=== PATIENT | male | born 1990 | race Two or more races ===

== ENCOUNTER 2024-12-24 11:32 | Emergency (ER) | payer MEDICAID, SELFPAY ==
[2024-12-24 11:34] VITALS: BP 167/95; PULSE 112; RESP 18; TEMP 36.9; O2SAT 98; BMI 33.7
--- NOTE | 2024-12-24 11:35 | ED_ITS ---
[facility] - General Adult General Chief complaint: Abdominal Pain Stated complaint: abd/back pain Time Seen by Provider: 12/24/24 12:31 Source: patient Mode of arrival: ambulatory Limitations: no limitations History of Present Illness ED Provider: HPI narrative: 34-year-old male who is presenting with right lower back discomfort radiating around to his belly button, he was seeing at [facility] on December 14, at that point had blood work, urinalysis and a CAT scan abdomen and pelvis, prior to that he was seen there as well and started on gabapentin because he has similar symptoms in his bilateral lower extremities lots of burning, takes gabapentin 600 mg 3 times a day Related Data Previous Rx's ?Medication ?Instructions ?Recorded capsaicin 0.035 % topical patch 1 patch topical QID NJ N pain 7 12/24/24 days #10 ea oxycodone 5 mg tablet 5 mg PO Q6H PRN pain #10 tab s 12/24/24 prednisone 20 mg tablet 40 mg (2 x 20 mg) PO DAILY 4 days 12/24/24 #8 tabs Allergies Allergy/AdvReac Type Severity Reaction Status Date / Time No Known Allergies Allergy Verified 12/24/24 11:36 Review of Systems 2 Constitutional: Constitutional: Reports as per [facility] Social History Social History Smoked in Last 30 Days: Yes Substance Use Type: Marijuana Substance Use Frequency: Chronic Longstanding Advance Directives: No Advance Directives Information Provided: Yes Do you have a plan to hurt others: No Plan Physical Exam ED Vital Signs: Vital Signs - 24 hr 12/24/24 11:34 Temperature 98.4 F Pulse Rate 112 H Respiratory Rate 18 Blood Pressure 167/95 H Pulse Oximetry 98 Oxygen Delivery Method Room Air BMI result Body Mass Index 33.7 Const Other: * Gen: ?Overall well-appearing patient * CV: RRR, no obvious murmurs appreciated * Resp: ?No wheezing rales rhonchi no stridor moving air well * Abd: ?Bowel sounds are present, significant tenderness all around L4-L5 distribution to even superficial touch up into the abdominal area * MSK: FROM, strength 5/5 all extremities, tingling and burning bilateral lower extremities * Skin: Warm, dry, intact, no rashes * Neuro: ?Alert and oriented x3, moving upper and lower extremities symmetrically, no obvious facial asymmetry noted Course Course Course Narrative: This is a Rapid Medical Examination (RME) performed by Nav Foster PA-C in triage. Full HPI, ROS, assessment and treatment plan per primary provider in the Main ED. Hx: 34 yo M here w/ 12/31 right lower quadrant abd pain rad to back x2 mo. reports vomiting 5x today. presented to PCP office today, advised to come to ED. denies urinary sx, diarrhea, constipation. no hx of abd surgeries. Plan: labs, UA Medications Administered Discontinued Medications Generic Name Dose Route Start Last Admin Trade Name Víctor PRN Reason Stop Dose Admin Dexamethasone 10 mg 12/24/24 12:55 12/24/24 13:08 Dexamethasone 2 Mg Tablet PO 12/24/24 12:56 10 mg ONCE ONE Administration Ketorolac Tromethamine 15 mg 12/24/24 12:55 12/24/24 13:07 Ketorolac Tromethamine 15 Mg/Ml Vial IM 12/24/24 12:56 15 mg ONCE ONE Administration Lidocaine 1 patch 12/24/24 12:55 12/24/24 13:07 Lidocaine 4 % Patch Adh..Patch TRANSDERMA 12/24/24 12:56 1 patch ONCE ONE Administration Protocol Oxycodone HCl 5 mg 12/24/24 12:55 12/24/24 13:07 Oxycodone Hcl Immed Release 5 Mg Tablet PO 12/24/24 12:56 5 mg ONCE ONE Administration Procedures Procedure Narrative Procedure Narrative: Verbal consent for trigger point injections was obtained Patient was placed on the left lateral decubitus position, 5 trigger points were identified along the lumbosacral paraspinal spine injected with 21 gauge needle a total of 10 cc 1% lidocaine without epinephrine Patient tolerated procedure well Medical Decision Making Medical Decision Making [facility] Narrative: Patient is presenting with 2 months' worth of pain in the lower extremities and burning in the L4-L5 nerve distribution something what you would expect with shingles but he has no obvious rashes, I reviewed his CT imaging from [facility] and that was completely unremarkable, blood work today reassuring, he is tachycardic slightly but he is in discomfort afebrile, he has had no urinary symptoms no hematuria to suspect renal colic, the spoke with the patient do not feel that repeat imaging such as CT is indicated, I am going to inject his back with lidocaine, lidocaine patches, local modalities, we will place him on steroids just for a few days and we will ask the patient to monitor his diabetes, he states prior to that his diabetic control has been poor now he is really tight on his diabetic control and I agree with that, and he has not neuropathy and he is already taking medical therapy, he went to see his PCP and PCP just sent him to the ER, patient needs outpatient MRI, patient needs referral to pain management he may need possibly epidural steroid injections or other interventional approaches, he may need physical therapy, and I will communicate that to PCP on my discharge instructions 14:22 on re-evaluation after injections, Toradol lidocaine, patient has had significant improvement in his pain symptoms he rates it 2/10 see my discharge instructions Differential Diagnosis Differential Diagnoses: The differential diagnosis associated with the presentation includes (Lumbar neuropathy, shingles, renal colic, diskitis osteomyelitis, cauda equina, appendicitis) Lab Data MDM Lab Attestation statement: I reviewed the patient's lab results. 12/24/24 12:15 12/24/24 12:15 Labs: Lab Results 12/24/24 Range/Units 12:15 WBC 8.3 (4.8-10.8) X10*3/uL RBC 5.06 (4.60-5.80) X10*6/uL Hgb 15.3 (14.0-18.0) g/dl Hct 42.0 (42.0-52.0) % MCV 83.0 (80.0-98.0) fL MCH 30.2 (27.0-33.0) pg MCHC 36.4 H (31.0-36.0) g/dl RDW 12.5 (11.0-16.0) % Plt Count 259 (160-400) X10*3/uL MPV 9.2 L (9.4-12.4) fL Immature Gran % (Auto) 0.4 (0.0-0.4) % Neut % (Auto) 67.0 (45-73) % Lymph % (Auto) 24.3 (20-40) % [place] % (Auto) 7.6 (2-11) % Eos % (Auto) 0.5 (0-4) % Baso % (Auto) 0.2 (0-2) % Lymph # (Auto) 2.0 (1.2-4.9) X10*3/uL [place] # (Auto) 0.6 (0.1-1.2) X10*3/uL Eos # (Auto) 0.0 (0.0-0.4) X10*3/uL Baso # (Auto) 0.0 (0.0-0.2) X10*3/uL Abs Immat Gran (auto) 0.03 (0.00-0.03) X10*3/uL Absolute Neuts (auto) 5.6 (2.0-8.3) x10*3/uL Absolute Nucleated RBC 0.000 (0.0-0.012) X10*3/uL Nucleated RBC % (auto) 0.0 (0.0-0.2) /100WBC Sodium 138 (135-145) mmol/L Potassium 5.1 (3.3-5.1) mmol/L Chloride 103 (96-108) mmol/L Carbon Dioxide 27 (22-29) mmol/L Anion Gap 13 (12-20) BUN 16 (9-16) mg/dL Creatinine 0.95 (0.5-1.4) mg/dL Estim Creat Clear Calc 118.0 Estimated GFR > 60 Random Glucose 105 (60-115) mg/dL Calcium 9.9 (8.4-10.2) mg/dL Magnesium 1.8 (1.6-2.6) mg/dL Total Bilirubin 0.9 (0.0-1.0) mg/dL AST 24 (5-37) U/L ALT 16 (0-40) U/L Alkaline Phosphatase 68 (39-117) U/L Total Protein 7.8 (6.5-8.0) g/dL Albumin 4.9 (3.5-5.0) g/dL Lipase 10 (8-78) U/L External Record Review External record reviewed: Prior outpatient radiology and Outside ED record Tests considered The following testing was considered but not selected: CT abdomen and pelvis Prescription Management I considered prescription management with: Pain Medication Chronic Conditions Patient?s care impacted by: Diabetes Discharge Plan Discharge Clinical Impression: Neuropathy, lumbosacral (radicular), Diabetic neuropathy Patient Disposition: Home, Self-Care Additional Instructions: Continue with gabapentin, continue with steroids starting tomorrow keep a close eye on your sugars as prednisone can increase your glucose Capsaicin ointment patches as described, 10s unit to the back, follow up with the PCP, you have neuropathy is there was no indication for repeat CAT scan, blood work reassuring, I recommend outpatient MRI of the lumbosacral spine, this is nonemergent basis, and referral to pain management, you may need additional physical therapy or pain procedures Lidocaine injections performed in the ER, at the site of injections if you have any redness discharge of pus very much unlikely come back to the ER for evaluation Prescriptions: New prednisone 20 mg tablet 40 mg PO DAILY 4 Days Qty: 8 0RF capsaicin 0.035 % adhesive patch,medicated 1 patch topical QID PRN (Reason: pain) 7 Days Qty: 10 0RF oxycodone 5 mg tablet 5 mg PO Q6H PRN (Reason: pain) Qty: 10 0RF Rx Instructions: Partial Fill upon patient request. Print Language: Honduran
[2024-12-24 12:20] LABS: MANUAL DIFF FLAG NO
[2024-12-24 12:27] LABS: Hematocrit 42.0 % (42.0-52.0); Hemoglobin 15.3 g/dl (14.0-18.0); Imm Gran Abs Auto 0.03 X10*3/uL (0.00-0.03); Imm Gran Pct Auto 0.4 % (0.0-0.4); Lymphocytes Absolute Auto 2.0 X10*3/uL (1.2-4.9); Mean Corpuscular HGB Conc 36.4 g/dl (31.0-36.0); Mean Corpuscular Hemoglobin 30.2 pg (27.0-33.0); Mean Corpuscular Volume 83.0 fL (80.0-98.0); NRBC Abs Auto 0.000 X10*3/uL (0.0-0.012); NRBC Pct Auto 0.0 /100WBC (0.0-0.2); Platelet Count 259 X10*3/uL (160-400); Red Blood Count 5.06 X10*6/uL (4.60-5.80); White Blood Count 8.3 X10*3/uL (4.8-10.8)
[2024-12-24 12:35] LABS: Alanine Aminotransferase 16 U/L (0-40); Albumin Level 4.9 g/dL (3.5-5.0); Alkaline Phosphatase 68 U/L (39-117); Anion Gap 13 (12-20); Aspartate Amino Transferase 24 U/L (5-37); Blood Urea Nitrogen 16 mg/dL (9-16); Calcium 9.9 mg/dL (8.4-10.2); Carbon Dioxide 27 mmol/L (22-29); Chloride 103 mmol/L (96-108); Creatinine Clr Calc Pharmacy 118.0; Estimated Glomerular Filt Rate > 60; Lipase 10 U/L (8-78); Magnesium 1.8 mg/dL (1.6-2.6); Potassium 5.1 mmol/L (3.3-5.1); Sodium 138 mmol/L (135-145); Total Protein 7.8 g/dL (6.5-8.0)
[2024-12-24] MEDS: Lidocaine 4 % Patch ADH..PATCH 1 PATCH TRANSDERMA (13:07)
[2024-12-24] MEDS: oxyCODONE HCl Immed Release 5 MG TABLET PO (13:07)
--- NOTE | 2024-12-24 14:18 | PC.NURSE ---
1% lidocaine injected by dr chappell
[2024-12-24 14:34] VITALS: BP 167/95; PULSE 112; RESP 18; TEMP 36.9; O2SAT 98
--- OUTSIDE RECORDS SUMMARY | 2024-12-24 15:02 | XMS_ITS | Clinical Summary ---
Author Organization [facility] Address [address] [place] [address] Care Team Providers Care Refrigeration Unit Repairer Name Role Phone Unavailable Primary Care Provider Unavailabl e Surgical History Surgery Date Site/Laterality Comments OTHER SURGICAL HISTORY PROCEDURE: DENIES PREVIOUS SURGERY Medical History Medical History Date Comments Essential hypertension, benign D X:Essential hypertension, benign Type 2 diabetes mellitus wit h microalbuminuria, with long-term current use of insulin ([facility] V24, [facility] V28) 09/01/2017 DX:Type 2 diabetes mellitus with microalbuminuria, with long-term current use of insulin (HCC) DM (diabetes mellitus), type 2 with renal complications ([facility] V24, [facility] V28) 09/01/2017 DX:DM (diabetes mellitus), t ype 2 with renal complications (HCC) DM (diabetes mellitus), type 2 with neurological complications ([facility] V24, [facility] V28) 04/26/2020 DX:DM (diabetes mellitus), t ype 2 with neurological complications ([facility]) Microalbuminuria 04/26/2020 DX:Microalbumin uria Severe obesity (BMI 35.0-39. 9) with comorbidity ([facility] V24, [facility] V28) 04/26/2020 DX:Severe obesi ty (BMI 35.0- 39.9) with comorbidity ([facility]) Family History Medical History Relation Name Comments Diabetes Brother Hypertension Father Diabetes Maternal Grandfather Relation Name Status Comments Brother Father Maternal Grandfather Social History Tobacco Use Types Packs/Day Years Used Date Smoking Tobacco: Heavy Smoker Smokeless Tobacco: Never Alcohol Use Standard Drinks/Week Comments Yes 0 (1 standard drink = 0.6 oz pur e alcohol) Sex and Gender Information Value Date Recorded Sex Assigned at Not on file Legal Sex Male 11:12 AM EST Gender Identity Not on file Sexual Orientation Not on file Obstetrics History Plan of Treatment Health Maintenance Due Date Last Done Comments Hepatitis B Vaccines (1 of 3 - 19+ 3-dose series) 2009 DTaP,Tdap,and Td Vaccines (3 - Td or Tdap) 10/24/2019 10/23/2009, 03/21/2004 COVID-19 Vaccine ( - 2023-2 5 season) 2023 Depression Screening 04/23/2024 Influenza Vaccine (#1) 2024 Pneumococcal Vaccine: Pediatrics (0 to 5 Years) and At-Risk Patients (6 to 49 Years) Aged Out 11/19/2009 No longer eligible b ased on patient's age to complete this topic HIB Vaccines Aged Out No longer eligi ble based on patient's age to complete this topic HPV Vaccines Aged Out No longer eligi ble based on patient's age to complete this topic Hepatitis A Vaccines Aged Out No long er eligible based on patient's age to complete this topic IPV Vaccines Aged Out No longer eligi ble based on patient's age to complete this topic MMR Vaccines Aged Out No longer eligi ble based on patient's age to complete this topic Meningococcal ACWY Vaccine Aged Out N o longer eligible based on patient's age to complete this topic Meningococcal B Vaccine Aged Out No l onger eligible based on patient's age to complete this topic RSV Immunization Patients Under 20 months Aged Out No longer eligible b ased on patient's age to complete this topic Varicella Vaccines Aged Out No longer eligible based on patient's age to complete this topic
--- OUTSIDE RECORDS SUMMARY | 2024-12-24 15:02 | XMS_ITS | Clinical Summary ---
Author Organization [facility] Address [address] [facility] [address] [place] [address] Care Team Providers Care Picker/Puller Name Role Phone Unavailable Primary Care Provider Unavailabl e Social History Tobacco Use Types Packs/Day Years Used Date Smoking Tobacco: Never Assessed Sex and Gender Information Value Date Recorded Sex Assigned at Not on file Legal Sex Male 10:22 AM EDT Gender Identity Not on file Sexual Orientation Not on file Plan of Treatment Health Maintenance Due Date Last Done Comments Depression Screening 1990 HIV Screening 1990 SDOH Screening 1990 Disability Screening 1990 Alcohol/Substance Use Screening 2002 Tobacco Screening 2002 Family Planning (PISQ) 2005 HPV Vaccines (1 - Male 3-dos e series) 2005 Hepatitis C Screening 2008 DTaP/Tdap/Td Vaccines (1 - Tdap) 2009 Hepatitis B Vaccines (1 of 3 - 19+ 3-dose series) 2009 COVID-19 Vaccine (1 - 2023-2 5 season) 2024 Influenza Vaccine (#1) 2024 Zoster Vaccines (1 of 2) 2040 RSV Patients and Pa tients Aged 60 years or older (1 - 1-dose 75+ series) 2065 HIB Vaccines Aged Out No longer eligi [...] patient's age to complete this topic Meningococcal Vaccine Aged Out No mary shayla eligible based on patient's age to complete this topic Pneumococcal Vaccine: Pediat rics (0 to 5 Years) and At-Risk Patients (6 to 49) Years Aged Out No longer eligible b ased on patient's age to complete this topic RSV under 20 months Aged Out No longe r eligible based on patient's age to complete this topic Rotavirus Vaccines Aged Out No longer eligible based on patient's age to complete this topic [place] [address] [address]
== END 2024-12-24 14:37 | disposition home or self-care (01) ==
PROVIDERS: Physician Assistant Medical; Emergency Provider Emergency Medicine
DX: G62.9 Polyneuropathy, unspecified (principal); E11.40 Type 2 diabetes mellitus with diabetic neuropathy, unspecified; R00.0 Tachycardia, unspecified; R10.31 Right lower quadrant pain; R11.10 Vomiting, unspecified; Z79.899 Other long term (current) drug therapy
CPT/HCPCS: 20552; 36415; 80053; 83690; 83735; 85025; 96372; 99284; J1885; J8540

== ENCOUNTER 2025-01-01 06:38 | Emergency (ER) | payer OTHER, SELFPAY ==
--- NOTE | ~2025-01-01 | XR_ITS ---
EXAMINATION: XR THORACIC SPINE 2 VIEWS HISTORY: lifting heavy furniture with thoracic pain COMPARISON: There are no prior studies available for comparison. FINDINGS: AP and lateral views of the thoracic spine are submitted. Osseous mineralization is normal. The vertebral bodies maintain normal height and alignment without evidence of fracture or subluxation. The intervertebral disc spaces are preserved. The visualized paraspinal soft tissues are unremarkable. XR/XR thoracic spine 2V IMPRESSION: Unremarkable examination of the thoracic spine. Electronically signed by: Raza Cordero MD 01/01/2025 08:17 AM EDT
[2025-01-01 06:40] VITALS: BP 118/58; PULSE 96; RESP 16; TEMP 36.3; O2SAT 98; BMI 33.7
--- OUTSIDE RECORDS SUMMARY | 2025-01-01 06:52 | XMS_ITS | Clinical Summary ---
Author Organization [facility] [address] [place] [address] [place] [address] Phone Care Team Providers Care Correction Officer Head Name Role Phone Dago Franklin MD Primary Care Provider Encounters Date Type Department Care Team Description 12/26/2024 Telephone Adult Medicine [facility] [address] [place] [address] Dago Franklin MD from Last 3 Months Surgical History Surgery Date Site/Laterality Comments OTHER SURGICAL HISTORY PROCEDURE: DENIES PREVIOUS SURGERY Medical History Medical History Date Comments Essential hypertension, benign D X:Essential hypertension, benign Type 2 diabetes mellitus wit h microalbuminuria, with long-term current use of insulin ([facility] V24, [facility] V28) 09/01/2017 DX:Type 2 diabetes mellitus with microalbuminuria, with long-term current use of insulin (HCC) DM (diabetes mellitus), type 2 with renal complications ([facility] V24, [facility] V28) 09/01/2017 DX:DM (diabetes mellitus), t ype 2 with renal complications (HCC) DM (diabetes mellitus), type 2 with neurological complications ([facility] V24, [facility] V28) 04/26/2020 DX:DM (diabetes mellitus), t ype 2 with neurological complications (HCC) Microalbuminuria 04/26/2020 DX:Microalbumin uria Severe obesity (BMI 35.0-39. 9) with comorbidity ([facility] V24, [facility] V28) 04/26/2020 DX:Severe obesi ty (BMI 35.0- 39.9) with comorbidity (HCC) Family History Medical History Relation Name Comments [...] on file Obstetrics History Plan of Treatment Upcoming Encounters Date Type Department Care Team (Late st Contact Info) Description 01/01/2025 1:30 PM EDT Office Visit Adult Medicine [address] [phone] Thao Nicholson PA [address] [place] [address] 08/18/2025 11:30 AM EDT Office Visit Adult Medicine [address] [phone] Dago Franklin MD [address] [place] [address] Health Maintenance Due Date Last Done Comments Diabetes: Annual GFR (Glomerular Filtration Rate) 1990 Diabetes: Annual Foot Exam 2000 Diabetes: Annual Retina Eye Exam 2000 Hepatitis B Vaccines (1 of 3 - 19+ 3-dose series) 2009 Pneumococcal Vaccine: Pediatrics (0 to 5 Years) and At-Risk Patients (6 to 49 Years) (2 of 2 - PCV) 11/19/2010 11/19/2009 DTaP,Tdap,and Td Vaccines (3 - Td or Tdap) 10/24/2019 10/23/2009, 03/21/2004 Depression Screening 04/23/2024 COVID-19 Vaccine (1 - 2023-2 5 season) 2024 Influenza Vaccine (#1) 2024 Cholesterol Screening (Lipid Panel) 12/26/2024 Diabetes: Annual Urine Albumin-Creatinine Ratio (uACR) 12/26/2024 Diabetes: Blood Sugar Contro l Test (HGBA1C) 12/26/2024 HIV Screening 12/26/2024 Hepatitis C Screening 12/26/2024 Hypertension/CHF/CAD Annual BMP Blood Test 12/26/2024 Social Influencers of Health Screening 12/26/2024 HIB Vaccines Aged Out No longer eligi [...] patient's age to complete this topic [place] [address] [place] [address] PLAN Care Teams Correction Officer Head Relationship Specialty Start Date End Date Dago Franklin MD [address] [place] [address] PCP - General Internal Medicine 12/26/24
--- OUTSIDE RECORDS SUMMARY | 2025-01-01 06:52 | XMS_ITS | Clinical Summary ---
Author Organization [facility] Address [address] [facility] 7 [place] [address] Care Team Providers Care Correctional Substance Abuse Counselor Name Role Phone Unavailable Primary Care Provider [...] patient's age to complete this topic [place] [address] [place] [address]
--- NOTE | 2025-01-01 07:10 | ED.BACK ---
HPI - Back Pain/Injury General Chief Complaint: Back Pain/Injury Stated Complaint: severe back pain Time Seen by Provider: 01/01/25 07:05 Source: patient and family ( at bedside) Mode of arrival: ambulatory Limitations: no limitations History of Present Illness ED Provider: MARGARITO Nguyen HPI Narrative: 34-year-old male with medical history of HTN, IDT2DM, BPH, lumbar back pain presents to the ED due to thoracic back pain that started yesterday after moving catch his. Patient states he was rearranging furniture and pushing couches when he felt an instant pain in his mid back that got progressively worse as the day went on. Patient reports the pain is localized to the mid spine and does not radiate anywhere. He was unable to sleep last night due to pain and has been taking 5mg oxycodone and lidocaine patches without effect on pain. Denies chest pain, SOB, abdominal pain, nausea, vomiting. Related Data Previous Rx's ?Medication ?Instructions ?Recorded capsaicin 0.035 % topical patch 1 patch topical QID PRN pain 7 12/24/24 days #10 ea oxycodone 5 mg tablet 5 mg PO Q6H PRN pain #10 tabs 12/24/24 prednisone 20 mg tablet 40 mg (2 x 20 mg) PO DAILY 4 days 12/24/24 #8 tabs cyclobenzaprine 5 mg tablet 5 mg PO TID PRN muscle spasm #15 01/01/25 tabs ketorolac 10 mg tablet 10 mg PO Q8H PRN pain #15 tabs 01/01/25 Allergies Allergy/AdvReac Type Severity Reaction Status Date / Time No Known Allergies Allergy Verified 01/01/25 06:41 Review of Systems Review of Systems: CONST: Negative for fever, body aches and chills. HENT: Negative for neck pain/stiffness, headache, congestion, sore throat, swelling. EYES: Negative for discharge/pain or vision changes. RESP: Negative for cough/hemoptysis and shortness of breath. CV: Negative chest pain, difficulty breathing, palpitations. ABD: Negative pain, nausea, vomiting. : Negative increase frequency, dysuria, blood in urine or stool. MUSC: Negative for muscle aches, edema. POS mid back pain SKIN: Negative rash, lesions/sores. NEURO: Negative headache, dizziness, weakness. Yes all other systems are reviewed and are negative [facility] Past Medical History Attestation statement: The following information was validated with the patient. Source: old records reviewed and nursing notes reviewed Social History Social History Substance Use Type: Marijuana Advance Directives: No Advance Directives Information Provided: Yes Physical Exam Vital Signs: Vital Signs: Last Vital Signs Temp 97.4 F 01/01/25 06:40 Pulse 96 01/01/25 06:40 Resp 16 01/01/25 06:40 BP 118/58 L 01/01/25 06:40 Pulse Ox 98 01/01/25 06:40 O2 Del Method Room Air 01/01/25 06:40 BMI result Body Mass Index 33.7 GENERAL APPEARANCE: ?AxOx4, no acute distress. HEENT: ?NC, AT. MMM. EOMI, clear conjunctiva, oropharynx clear. NECK: ?Supple without lymphadenopathy.? No stiffness or restricted ROM. HEART:? Normal rate and regular rhythm, normal S1/S2, no m/r/g LUNGS:? CTAB, moving air well. No crackles or wheezes are heard. ABDOMEN: ?Soft, nontender, nondistended with good bowel sounds heard. BACK: No CVAT, no obvious deformity. TTP of thoracic spine most significant between T7-T10 of the midline spine and into the R side thoracic paraspinal muscles, no bony step offs palpated, no overlying skin changes EXTREMITIES: ?Without cyanosis, clubbing or edema. NEUROLOGICAL: ?Grossly nonfocal. Alert and oriented, moving all 4 extremities. Skin: ?Warm and dry without any rash. Medications Administered Discontinued Medications Generic Name Dose Route Start Last Admin Trade Name Freq PRN Reason Stop Dose Admin Acetaminophen 975 mg 01/01/25 07:56 01/01/25 08:17 Acetaminophen 325 Mg Tablet PO 01/01/25 07:57 975 mg ONCE ONE Administration Ketorolac Tromethamine 30 mg 01/01/25 07:56 01/01/25 08:17 Ketorolac Tromethamine 30 Mg/Ml Vial IM 01/01/25 07:57 30 mg ONCE ONE Administration Medical Decision Making Medical Decision Making MDM Narrative: 34-year-old male with medical history of HTN, IDT2DM, BPH with thoracic midline spinal pain and tenderness after pushing large, heavy couches yesterday. Patient reports feeling instant pain in his mid thoracic back that has been progressivly worsening since the injury happened. Patient has been taking 5mg oxycodone and using lidocaine patches without effect. VS on initial observation-BP 118/58, pulse rate of 96, respiratory rate of 16, afebrile with oral temp of 97.4?, O2 saturation 98% on room air. Physical exam shows midline thoracic tenderness that extends into R thoracic paraspinal muscles, no radiculopathy, no bony step offs palpated. ROM is intact but has significant pain with extension, lateral bending intact, able to ambulate with slow and steady gait, SILT. Plan: XR thoracic spine, medicate with 975 po Tylenol, 30mg IM ketorolac Course 9:30- XR thoracic spine negative for fracture or dislocation. Patients pain has improved significantly with IM toradol and tylenol. Patient has appointment with PCP today I counceled him to discuss his history of back pain for PT referral and further management of back pain. Risk factors reviewed: no saddle anesthesia, bowel/bladder incontinence, no history of IVDU, afebrile, Full ROM of thoracic spine intact Patient feels comfortable to go home for self care. I will prescribe 5 day course of flexeril and toradol for patient to manage his pain at home. I counciled him on strict return precautions, he is in agreement with the plan. Differential Diagnosis Differential Diagnoses: The differential diagnosis associated with the presentation includes Thoracic spine fracture Thoracic spine disc herniation Thoracic muscle strain Admission/Observation Consideration of admission/observation: Escalation of care including admission/observation considered Independent Interpretation I performed an independent interpretation of an: Plain X-Ray Interpretation: I personally interpreted the x-ray of thoracic spine which was negative for fracture or dislocation, I agree with the radiologist's interpretation Radiology Impression Discussion of test interpretation with radiology: I have reviewed the radiologist's reading. Radiologist Impression: XR thoracic spine FINDINGS: AP and lateral views of the thoracic spine are submitted. Osseous mineralization is normal. The vertebral bodies maintain normal height and alignment without evidence of fracture or subluxation. The intervertebral disc spaces are preserved. The visualized paraspinal soft tissues are unremarkable. XR/XR thoracic spine 2V IMPRESSION: Unremarkable examination of the thoracic spine. Electronically signed by: Raza Cordero MD 01/01/2025 08:17 AM EDT RP Dictated By: Raza Cordero MD Signed By: <Electronically signed by Raza Cordero MD in OV> 01/01/25 0817 Independent Historian Clinical information obtained from an independent historian. History obtained from or confirmed by: Spouse ( at bedside corroborating history) External Record Review External record reviewed: Inpatient record, Office record and Outpatient record Chronic Conditions Patient?s care impacted by: Diabetes, Hypertension and Other (BPH) Social Determinants Patient?s care significantly limited by Social Determinants of Health including: Other Social Determinant of Health Discharge Plan Discharge Clinical Impression: Strain of thoracic spine Patient Disposition: Home, Self-Care Instructions: Muscle Strain (ED), Thoracic Back Strain (ED) Additional Instructions: You were evaluated in the ED today for mid back strain after manipulating heavy furniture yesterday. Your x-ray was negative for fracture, dislocation. Your physical exam was reassuring that you had full range of motion of your back although you do have pain when moving. You were medicated in the department today with 30 mg of an intramuscular injection of Toradol which is a strong NSAID for inflammation, in 975 mg of Tylenol with good effect of your pain. You will be prescribed a 5 day course of Flexeril which is a muscle relaxer, and a 5 day course of Toradol which is a strong NSAID to manage your pain. Additionally you should take 500 mg of Tylenol every 6 hours. You can apply heat or lidocaine patches to the affected areas. Please do not use heat or ice over lidocaine patches as this can burn the skin. I do recommend that you follow up with your primary care doctor as you do have a history of back pain and I feel it would be beneficial for you to participate in physical therapy to strengthen your core and back muscles to prevent any further injury or back pain. Please return to the emergency department if you experience worsening back pain, numbness and tingling of your upper or lower extremities, difficulty ambulating, or any new/concerning/worsening symptoms. Prescriptions: New cyclobenzaprine 5 mg tablet 5 mg PO TID PRN (Reason: muscle spasm) Qty: 15 0RF ketorolac 10 mg tablet 10 mg PO Q8H PRN (Reason: pain) Qty: 15 0RF Rx Instructions: patient was given 30mg IM toradol in the ED for inflammation and pain of mid back No Action prednisone 20 mg tablet 40 mg PO DAILY 4 Days Qty: 8 0RF capsaicin 0.035 % adhesive patch,medicated 1 patch topical QID PRN (Reason: pain) 7 Days Qty: 10 0RF oxycodone 5 mg tablet 5 mg PO Q6H PRN (Reason: pain) Qty: 10 0RF Rx Instructions: Partial Fill upon patient request. Print Language: Kyrgyz
[2025-01-01 09:50] VITALS: BP 137/83; PULSE 81; RESP 16; TEMP 36.6; O2SAT 97
== END 2025-01-01 09:52 | disposition home or self-care (01) ==
PROVIDERS: Emergency Provider Emergency Medicine
DX: S29.012A Strain of muscle and tendon of back wall of thorax, initial encounter (principal); I10 Essential (primary) hypertension; E11.9 Type 2 diabetes mellitus without complications; X50.0XXA Overexertion from strenuous movement or load, initial encounter; Y93.89 Activity, other specified; Y92.89 Other specified places as the place of occurrence of the external cause; Y99.8 Other external cause status; Z79.899 Other long term (current) drug therapy
CPT/HCPCS: 72070; 96372; 99284; J1885

== ENCOUNTER → 2025-01-01 07:49 | Outpatient (BNV) | payer OTHER, SELFPAY | PROVIDERS: Emergency Provider Emergency Medicine; Visit Provider Radiology Diagnostic Radiology | DX: M54.50 Low back pain, unspecified (principal) | CPT/HCPCS: 72070 ==

== ENCOUNTER 2025-01-05 11:35 | Emergency (ER) | payer OTHER, SELFPAY ==
--- OUTSIDE RECORDS SUMMARY | 2025-01-01 13:30 | XMS_ITS | Encounter Summary ---
Author Organization [facility] Address [address] [place] [address] Care Team Providers Care Medical Office Technologist Name Role Phone Dago Franklin MD Primary Care Provider Reason for Referral * Consultation (Routine) - Pending Review Specialty Diagnoses / Procedures Referred By Contac t Referred To Contact Endocrinology Diagnoses DM (diabetes mellitus), type 2 with neurological complications (CMS/HCC V24, CMS/HCC V28) Thao Nicholson PA [address] [place] [address] Phone: tel: fax: Referral ID Status Reason Start Date Expiration Date Visits Requested Visits Authorized [id number] Pending Review Specialty Services Required 01/01/2025 01/01/2026 1 1 * Consultation (Urgent) - Closed Specialty Diagnoses / Procedures Referred By Contac t Referred To Contact Physical Medicine and Rehabilitation Diagnoses Lumbar radiculopathy Thao Nicholson PA [address] [place] [address] Phone: tel: fax: Ge Martel DO [address] [place] [address] Phone: tel:[phone] fax:[phone] Referral ID Status Reason Start Date Expiration Date V isits Requested Visits Authorized [id number] Closed Specialty Services Required 01/01/2025 01/01/2026 1 1 Reason for Visit * Reason Comments Follow-up [facility] f/u Encounter Details Date Type Department Care Team (Late st Contact Info) Description 01/01/2025 1:30 PM EDT Office Visit Adult Medicine [facility] [address], [place] [phone] Thao Nicholson PA [address], [place] Encounter to establish care (Primary Dx); Need for hepatitis C screening test; Encounter for screening for HIV; Lumbar radiculopathy; Acute right-sided low back pain with right-sided sciatica; DM (diabetes mellitus), type 2 with neurological complications (CMS/HCC V24, CMS/HCC V28); Vitamin D deficiency Social History Tobacco Use Types Packs/Day Years Used Date Smoking Tobacco: Former Cigarettes Smokeless Tobacco: Former Comments:Quit 2022 Alcohol Use Standard Drinks/Week Comments Not Currently 0 (1 standard drink = 0.6 oz pur e alcohol) Housing Instability Answer Date Recorde d Are you worried that in the next 2 months you may not have stable housing? No 01/01/2025 Food Access & Nutrition Answer Date Rec orded Do you have access to a vari ety of food including fruits and vegetables? Yes 01/01/2025 Health Literacy Answer Date Recorded How often do you need to hav e someone help you when you read instructions, pamphlets, or other written material from your doctor or pharmacy? Never 01/01/2025 Caregiver: How often do you need to have someone help you when you read instructions, pamphlets, or other written material from your doctor or pharmacy? Not on file 01/01/2025 Financial Risk Answer Date Recorded How hard is it for you to pa y for the very basics like food, housing, medical care, and air conditioning / heating? Not very hard 01/01/2025 Transportation Answer Date Recorded Has the lack of transportati on kept you from meetings, work, or from getting things needed for daily living? No Has the lack of transportati on kept you from medical appointments or from getting medications? No 01/01/2025 Social Isolation Answer Date Recorded How often do you feel lonely or isolated from th ose around you? Never 01/01/2025 Food Risk Answer Date Recorded Within the past 12 months we worried whether our food would run out before we got money to buy more. Never true 01/01/2025 Within the past 12 months th e food we bought just didn't last and we didn't have money to get more. Never true 01/01/2025 Dependent Care Answer Date Recorded Do you need help finding or paying for care for your loved ones. For example, child psychiatrist or elderly care for an older adult? No 01/01/2025 Education Answer Date Recorded Do you think completing more education or training, like finishing a GED, going to college, or learning a trade, would be helpful for you? No 01/01/2025 Employment and Income Answer Date Recor ded During the last four weeks, have you been actively looking for work? No 01/01/2025 Living Situation Answer Date Recorded What is your living situation? 0 01/01/2025 Sex and Gender Information Value Date Recorded Sex Assigned at Not on file Legal Sex Male 11:12 AM EST Gender Identity Not on file Sexual Orientation Not on file Occupation Industry Job Start Date Job End Date unemployed Not on file Not on file Not on file documented as of this encounter Last Filed Vital Signs Vital Sign Reading Time Taken Comments Blood Pressure 91/60 01/01/2025 1:26 PM EDT Pulse 88 01/01/2025 1:26 PM EDT Temperature 35.8 C (96.4 F) 01/01/2025 1:26 PM EDT Respiratory Rate 15 01/01/2025 1:26 PM EDT Oxygen Saturation 98% 01/01/2025 1:26 PM EDT Inhaled Oxygen Concentration - - Weight 93.9 kg (207 lb) 01/01/2025 1:26 PM EDT Height 167.6 cm (5' 6 ) 01/01/2025 1:26 PM EDT Body Mass Index 33.41 01/01/2025 1:26 PM EDT documented in this encounter Progress Notes * Toma Morris MA - 01/01/2025 1:30 PM EDT Depression Screening Will the patient answer the depression risk questions?: Yes Over the last 2 weeks, how often have you been bothered by little interest or pleasure in doing things?: Nearly every day Over the last 2 weeks, how often have you been bothered by feeling down, depressed, or hopeless?: Nearly every day Depression Risk: 6 Social Influencers of Health Who provided answers?: Self Within the past 12 months we worried whether our food would run out before we got money to buy more.: Never true Within the past 12 months the food we bought just didn't last and we didn't have money to get more.: Never true How hard is it for you to pay for the very basics like food, housing, medical care, and air conditioning / heating?: Not very hard Are you worried that in the next 2 months you may not have stable housing?: No Do you have access to a variety of food including fruits and vegetables?: Yes Has the lack of transportation kept you from meetings, work, or from getting things needed for daily living?: No Has the lack of transportation kept you from medical appointments or from getting medications?: No How often do you feel lonely or isolated from those around you?: Never How often do you need to have someone help you when you read instructions, pamphlets, or other written material from your doctor or pharmacy?: Never * ELA Leo - 01/01/2025 1:30 PM EDT CHIEF COMPLAINT: Follow-up ([facility] f/u) IDENTIFIER: Joshua Cohen is a 34 y.o. old male. HPI: Patient is a 34-year-old male who presents to the office today for ER follow-up. He is accompanied by his . He is a new patient here. He presented to [facility] ER on 12/24/2024 complaining of right low back pain which radiates into the umbilicus. He was seen at [facility] on 12/14, labs and CT scan unremarkable. He was given Toradol injection, lidocaine injection which helped at the ER. Labs revealed normal CBC, normal CMP, lipase. Blood sugar was 105. He was discharged with prednisone 40 mg x 4 days, capsaicin patch and oxycodone 5 mg 10 tablets and advised to continue gabapentin. He has been experiencing right sided low back pain with sciatica x 2 months now. Patient reports that he was just at the emergency room this morning and x-ray was completed which was normal. He was prescribed Flexeril. The only thing that helps is oxycodone. Gabapentin is unhelpful. No saddle anesthesia, bladder or bowel incontinence. He rates the pain 10 out of 10 when it comes on. He denies injury. He is currently unemployed. He has hypertension, diabetes with neuropathy, microalbuminuria, vitamin D deficiency, BPH, insomnia. Will have him come back for medication review. Last hemoglobin A1c a couple months ago was 11% however lately his fasting sugars have been around 90-110. No hypoglycemic episodes. ROS: GENERAL: No malaise, significant weight loss or fever HEENT: No changes in vision RESPIRATORY: No cough, wheezing or shortness of breath CARDIOVASCULAR: No chest pain, leg swelling or palpitations GI: No abdominal discomfort, blood in stools or black stools : No dysuria, frequency or incontinence MUSCULOSKELETAL: See HPI NEURO: See HPI PAST MEDICAL HISTORY: Patient Active Problem List Diagnosis Date Noted Essential hypertension, benign 08/10/2021 DM (diabetes mellitus), type 2 with neurological complications ([facility] V24, [facility] V28) 04/26/2020 Microalbuminuria 04/26/2020 Bilateral carpal tunnel syndrome 06/17/2018 DM (diabetes mellitus), type 2 with renal complications ([facility] V24, [facility] V28) 09/01/2017 Past Surgical History: Procedure Laterality Date OTHER SURGICAL HISTORY PROCEDURE: DENIES PREVIOUS SURGERY SOCIAL HISTORY: Social History Tobacco Use Smoking status: Former Types: Cigarettes Smokeless tobacco: Former Tobacco comments: Quit 2022 Substance Use Topics Alcohol use: Not Currently FAMILY HISTORY: Family History Problem Relation Name Age of Onset No Known Problems Mother Hypertension Father Diabetes Brother No Known Problems Brother x3 Autism Daughter Autism Son No Known Problems Maternal Grandmother Diabetes Maternal Grandfather Hypertension Paternal Grandmother No Known Problems Paternal Grandfather MEDICATIONS DISCONTINUED/REORDERED: Medications Discontinued During This Encounter Medication Reason doxycycline (MONODOX) 100 mg capsule Therapy completed escitalopram (LEXAPRO) 5 mg tablet Therapy completed predniSONE (DELTASONE) 20 mg tablet Therapy completed ACTIVE MEDICATIONS: Outpatient Medications Marked as Taking for the 01/01/25 encounter (Office Visit) with ELA Leo Medication Sig Dispense Refill BD Ultra-Fine Milady Pen Needle 32 gauge x 5/32 needle USE ONE NEEDLE TWO TIMES A DAY cholecalciferol (VITAMIN D-3) 50 mcg (2,000 unit) tablet Take 1 tablet (2,000 Units total) by mouth1 (one) time each day. docusate sodium (COLACE) 100 mg capsule Take 1 capsule (100 mg total) by mouth. gabapentin (NEURONTIN) 600 mg tablet Take 1 tablet (600 mg total) by mouth. ibuprofen (ADVIL,MOTRIN) 800 mg tablet Take 1 tablet (800 mg total) by mouth. Lidocaine Pain Relief 4 % patch APPLY ONE PATCH EXTERNAL THREE TIMES A DAY NEEDED FOR PAIN oxyCODONE (ROXICODONE) 5 mg immediate release tablet Take 1 tablet (5 mg total) by mouth every 6 (six) hours if needed. for pain Max Daily Amount: 20 mg tamsulosin (FLOMAX) 0.4 mg 24 hr capsule TAKE ONE CAPSULE BY MOUTH EVERY DAY NEEDED DIFFICULTY URINATING traZODone (DESYREL) 150 mg tablet Take 1 tablet (150 mg total) by mouth. at bedtime [DISCONTINUED] doxycycline (MONODOX) 100 mg capsule TAKE ONE CAPSULE BY MOUTH TWICE DAILY FOR 7 DAYS. STAY OUT OF THE SUN WHILE TAKING THIS MEDICATION IT INCREASES RISK OF SUNBURN [DISCONTINUED] escitalopram (LEXAPRO) 5 mg tablet Take 1 tablet (5 mg total) by mouth daily. [DISCONTINUED] predniSONE (DELTASONE) 20 mg tablet TAKE TWO TABLETS BY MOUTH EVERY DAY FOR 4 DAYS ALLERGIES: No Known Allergies PHYSICAL EXAM: Blood pressure 91/60, pulse 88, temperature 35.8 ??C (96.4 ??F), temperature source Temporal, resp.rate 15, height 1.676 m (66 ), weight 93.9 kg (207 lb), SpO2 98%. Body mass index is 33.41 kg/m??. BMI is greater than 25.0 (above the normal range) - see Plan APPEARANCE: Alert and in no acute distress HEART: RRR with normal S1 and S2, no murmurs, no gallops LUNG: Clear to auscultation ABDOMEN: Bowel sounds normoactive, mild TTP lower abdomen, without rebound, guarding, organomegaly or palpable masses BACK: Good flexion and extension. TTP lumbar spine, bilateral SI joints. SLR negative bilaterally EXTREMITIES: Extremities warm and well perfused without clubbing, cyanosis, or edema. Sensory exam of the foot is normal, tested with the monofilament. 2+ dorsalis pedis pulses, no lesions or ulcers NEURO: Awake, alert and oriented x 3. Patellar reflexes intact LABS: Ordered IMAGING: X-ray was done today at [facility], per patient was normal IMPRESSION/PLAN: 1. Encounter to establish care 2. Need for hepatitis C screening test Hepatitis C antibody 3. Encounter for screening for HIV HIV 1,2 antibody, p24 antigen with reflex to differentiation 4. Lumbar radiculopathy Ambulatory referral to Physical Medicine Rehab 5. Acute right-sided low back pain with right-sided sciatica 6. DM (diabetes mellitus), type 2 with neurological complications (CMS/HCC V24, CMS/HCC V28) Comprehensive metabolic panel Hemoglobin A1c Lipid panel with reflex to direct LDL Microalbumin creatinine urine ratio Ambulatory referral to Endocrinology 7. Vitamin D deficiency Vitamin D 25 hydroxy Medication and lab orders: Orders Placed This Encounter Procedures Comprehensive metabolic panel Hemoglobin A1c Lipid panel with reflex to direct LDL Microalbumin creatinine urine ratio Vitamin D 25 hydroxy HIV 1,2 antibody, p24 antigen with reflex to differentiation Hepatitis C antibody Ambulatory referral to Physical Medicine Rehab Ambulatory referral to Endocrinology Other orders: AMB REFERRAL TO PHYSICAL MEDICINE REHAB AMB REFERRAL TO ENDOCRINOLOGY Encounter to establish care. Updated problem list, surgical history, family history and social history. Lumbar radiculopathy, right-sided low back pain with right-sided sciatica. This has been going on for 2 months now. He had x-ray earlier today at [facility] ER which patient states was normal. He has a prescription for oxycodone as needed for pain, was prescribed Flexeril today. No saddle anesthesia, bladder continence or bowel incontinence. Will refer to physiatry for further evaluation and management. Type 2 diabetes. He does have neuropathy. Will update diabetic labs, follow-up in 4 weeks. Will refer to endocrinology. Sugars at home have been improved. Continue on current diabetic regimen which consists of insulin lispro and insulin Lantus. Diabetic foot exam done today. Continue on current meds. Follow-up for med review. Labs are ordered. Advised the patient to call me if any problems. Patient understands the plan. Patient is in agreement with the plan. Today's documentation was made using voice recognition software.This note may contain grammatical errors secondary to this software. Thao Nicholson PA-C documented in this encounter Plan of Treatment Upcoming Encounters Date Type Department Care Team (Late st Contact Info) Description 02/10/2025 11:15 AM EDT Office Visit Adult Medicine [address] [phone] Thao Nicholson PA [address] [place] [address] 08/18/2025 11:30 AM EDT Office Visit [address] [phone] Dago Franklin MD [address] [place] [address] Scheduled Orders Name Type Priority Associated Diagnoses Orde r Schedule Comprehensive metabolic panel Lab Routine DM (diabetes mellitus), type 2 with neurological complications ([facility]/HCC V24, CMS/HCC V28) 1 Occurrences starting 01/01/2025 until 01/01/2026 Hemoglobin A1c Lab Routine DM (diabetes mellitus), type 2 with neurological complications (CMS/HCC V24, CMS/HCC V28) 1 Occurrences starting 01/01/2025 until 01/01/2026 Lipid panel with reflex to direct LDL Lab Routine DM (diabetes mellitus), type 2 with neurological complications (CMS/HCC V24, CMS/HCC V28) 1 Occurrences starting 01/01/2025 until 01/01/2026 Microalbumin creatinine urine ratio Lab Routine DM (diabetes mellitus), type 2 with neurological complications (CMS/HCC V24, CMS/HCC V28) 1 Occurrences starting 01/01/2025 until 01/01/2026 Vitamin D 25 hydroxy Lab Routine Vitamin D deficiency Expected: 01/01/2025, Expires: 01/01/2026 HIV 1,2 antibody, p24 antigen with reflex to differentiation Lab Routine Encounter for screening for HIV 1 Occurrences starting 01/01/2025 until 01/01/2026 Hepatitis C antibody Lab Routine Need for hepatitis C screening test 1 Occurrences starting 01/01/2025 until 01/01/2026 Scheduled Referrals Name Type Priority Associated Diagnoses Orde r Schedule Ambulatory referral to Physical Medicine Rehab Outpatient Referral Routine Lumbar radiculopathy 1 Occurrences starting 01/01/2025 until 01/01/2026 Ambulatory referral to Endocrinology Outpatient Referral Routine DM (diabetes mellitus), type 2 with neurological complications (CMS/HCC V24, CMS/HCC V28) 1 Occurrences starting 01/01/2025 until 01/01/2026 documented as of this encounter Visit Diagnoses Diagnosis Encounter to establish care- Primary Need for hepatitis C screening test Special screening examination for other specified viral diseases Encounter for screening for HIV Lumbar radiculopathy Thoracic or lumbosacral neuritis or radiculitis, unspecified Acute right-sided low back pain with right-sided sciatica DM (diabetes mellitus), type 2 with neurological complications (CMS/HCC V24, CMS/HCC V28) Type II or unspecified type diabetes mellitus with neurological manifestations, not stated as uncontrolled Vitamin D deficiency documented in this encounter Discontinued Medications Medication Sig Discontinue Reason Start Date End Da te doxycycline (MONODOX) 100 mg capsule TAKE ONE CAPSULE BY MOUTH TWICE DAILY FOR 7 DAYS. STAY OUT OF THE SUN WHILE TAKING THIS MEDICATION IT INCREASES RISK OF SUNBURN Therapy completed 05/11/2024 01/01/2025 escitalopram (LEXAPRO) 5 mg tablet Take 1 tablet (5 mg total) by mouth daily. Therapy completed 03/30/2022 01/01/2025 predniSONE (DELTASONE) 20 mg tablet TAKE TWO TABLETS BY MOUTH EVERY DAY FOR 4 DAYS Therapy completed 12/24/2024 01/01/2025 documented as of this encounter Historical Medications * This list may reflect changes made after this encounter. traZODone (DESYREL) 150 mg tablet Take 1 tablet (150 mg total) by mouth. at bedtime 12/29/2024 tamsulosin (FLOMAX) 0.4 mg 24 hr capsule TAKE ONE CAPSULE BY MOUTH EVERY DAY NEEDED DIFFICULTY URINATING 10/25/2024 BD Ultra-Fine Milady Pen Needle 32 gauge x 5/32 needle USE ONE NEEDLE TWO TIMES A DAY 12/29/2024 oxyCODONE (ROXICODONE) 5 mg immediate release tablet Take 1 tablet (5 mg total) by mouth every 6 (six) hours if needed. for pain Max Daily Amount: 20 mg 12/24/2024 lisinopriL (PRINIVIL,ZESTR IL) 20 mg tablet Take 1 tablet (20 mg total) by mouth 1 (one) time each day. Lidocaine Pain Relief 4 % patch APPLY ONE PATCH EXTERNAL THREE TIMES A DAY NEEDED FOR PAIN 12/29/2024 insulin lispro (HumaLOG KwikPen) 100 unit/mL injection pen INJECT UNDER THE SKIN PER SLIDING SCALE UP TO 30 UNITS MAX DAILY Lantus Solostar U-100 Insulin 100 unit/mL (3 mL) injection pen INJECT 64 UNITS SUBCUTANEOUSLY EVERY EVENING ibuprofen (ADVIL,MOTRIN) 800 mg tablet Take 1 tablet (800 mg total) by mouth. 04/29/2018 gabapentin (NEURONTIN) 600 mg tablet Take 1 tablet (600 mg total) by mouth. 12/24/2024 docusate sodium (COLACE) 100 mg capsule Take 1 capsule (100 mg total) by mouth. 10/25/2024 cholecalciferol (VITAMIN D-3) 50 mcg (2,000 unit) tablet Take 1 tablet (2,000 Units total) by mouth 1 (one) time each day. 10/25/2024 amLODIPine (NORVASC) 5 mg tablet Take 1 tablet (5 mg total) by mouth 1 (one) time each day. predniSONE (DELTASONE) 20 mg tablet TAKE TWO TABLETS BY MOUTH EVERY DAY FOR 4 DAYS 12/24/2024 5 escitalopram (LEXAPRO) 5 mg tablet Take 1 tablet (5 mg total) by mouth daily. 03/30/2022 5 doxycycline (MONODOX) 100 mg capsule TAKE ONE CAPSULE BY MOUTH TWICE DAILY FOR 7 DAYS. STAY OUT OF THE SUN WHILE TAKING THIS MEDICATION IT INCREASES RISK OF SUNBURN 05/11/2024 5 added in this encounter Additional Health Concerns Assessment Noted Time PHQ-9 Depression Total Score: 27 025 1:27 PM EDT documented as of this encounter Care Teams Medical Office Technologist Relationship Specialty Start Date End Date Dago Franklin MD [address] [place] [address] PCP - General Internal Medicine 12/26/24 documented as of this encounter
--- NOTE | 2025-01-05 12:53 | PC.NURSE ---
Was called from waiting room to triage at 12:12pm and 12:31pm with no answer. Left without being triaged/seen. Did not notify staff that he was leaving.
--- OUTSIDE RECORDS SUMMARY | 2025-01-05 18:43 | XMS_ITS | Clinical Summary ---
Author Organization [facility] [address] [place] [address] [place] [phone] Phone Care Team Providers Care Telephoto Installer Name Role Phone Dago Franklin MD Primary Care Provider Allergies No known active allergies Medications amLODIPine (NORVASC) 5 mg tablet Take 1 tablet (5 mg total) by mouth 1 (one) time each day. Active cholecalcifero l (VITAMIN D-3) 50 mcg (2,000 unit) tablet Take 1 tablet (2,000 Units total) by mouth 1 (one) time each day. 10/26/19 25 Active docusate sodium (COLACE) 100 mg capsule Take 1 capsule (100 mg total) by mouth. 10/26/19 25 Active gabapentin (NEURONTIN) 600 mg tablet Take 1 tablet (600 mg total) by mouth. 12/25/19 25 Active ibuprofen (ADVIL,MOTRIN) 800 mg tablet Take 1 tablet (800 mg total) by mouth. 04/29/19 19 Active Lantus Solostar U-100 Insulin 100 unit/mL (3 mL) injection pen INJECT 64 UNITS SUBCUTANEOUSLY EVERY EVENING Active insulin lispro (HumaLOG KwikPen) 100 unit/mL injection pen INJECT UNDER THE SKIN PER SLIDING SCALE UP TO 30 UNITS MAX DAILY Active Lidocaine Pain Relief 4 % patch APPLY ONE PATCH EXTERNAL THREE TIMES A DAY NEEDED FOR PAIN 12/30/19 25 Active lisinopriL (PRINIVIL,ZEST RIL) 20 mg tablet Take 1 tablet (20 mg total) by mouth 1 (one) time each day. Active oxyCODONE (ROXICODONE) 5 mg immediate release tablet Take 1 tablet (5 mg total) by mouth every 6 (six) hours if needed. for pain Max Daily Amount: 20 mg 12/25/19 25 Active BD Ultra-Fine Milady Pen Needle 32 gauge x needle USE ONE NEEDLE TWO TIMES A DAY 12/30/19 25 Active tamsulosin (FLOMAX) 0.4 mg 24 hr capsule TAKE ONE CAPSULE BY MOUTH EVERY DAY NEEDED DIFFICULTY URINATING 10/26/19 25 Active traZODone (DESYREL) 150 mg tablet Take 1 tablet (150 mg total) by mouth. at bedtime 12/30/19 Active doxycycline (MONODOX) 100 mg capsule TAKE ONE CAPSULE BY MOUTH TWICE DAILY FOR 7 DAYS. STAY OUT OF THE SUN WHILE TAKING THIS MEDICATION IT INCREASES RISK OF SUNBURN 05/11/19 025 Discontin ued(Thera py completed ) escitalopram (LEXAPRO) 5 mg tablet Take 1 tablet (5 mg total) by mouth daily. 03/30/20 025 Discontin ued(Thera py completed ) predniSONE (DELTASONE) 20 mg tablet TAKE TWO TABLETS BY MOUTH EVERY DAY FOR 4 DAYS 12/25/19 025 Discontin ued(Thera py completed ) Active Problems Problem Noted Date Diagnosed Date Essential hypertension, benign 08/10/2021 DM (diabetes mellitus), type 2 with neurological complications ([facility] V24, CMS/HCC V28) 04/26/2020 Microalbuminuria 04/26/2020 Bilateral carpal tunnel syndrome 06/17/2018 DM (diabetes mellitus), type 2 with renal complications (CMS/HCC V24, CMS/HCC V28) 09/01/2017 Encounters Date Type Department Care Team Description 01/01/2025 1:30 PM EDT Office Visit Adult Medicine [address] [phone] Thao Nicholson PA Encounter to establish care (Primary Dx); Need for hepatitis C screening test; Encounter for screening for HIV; Lumbar radiculopathy; Acute right-sided low back pain with right-sided sciatica; DM (diabetes mellitus), type 2 with neurological complications (CMS/[facility] V24, CMS/[facility] V28); Vitamin D deficiency 12/26/2024 Telephone Adult Medicine [address] [phone] Dago Franklin MD from Last 3 Months Surgical History Surgery Date Site/Laterality Comments OTHER SURGICAL HISTORY PROCEDURE: DENIES PREVIOUS SURGERY Medical History Medical History Date Comments Essential hypertension, benign D X:Essential hypertension, benign Type 2 diabetes mellitus wit h microalbuminuria, with long-term current use of insulin ([facility] V24, CMS/[facility] V28) 09/01/2017 DX:Type 2 diabetes mellitus with microalbuminuria, with long-term current use of insulin (HCC) DM (diabetes mellitus), type 2 with renal complications (CMS/HCC V24, CMS/HCC V28) 09/01/2017 DX:DM (diabetes mellitus), t ype 2 with renal complications (HCC) DM (diabetes mellitus), type 2 with neurological complications (CMS/HCC V24, CMS/HCC V28) 04/26/2020 DX:DM (diabetes mellitus), t ype 2 with neurological complications (HCC) Microalbuminuria 04/26/2020 DX:Microalbumin uria Severe obesity (BMI 35.0-39. 9) with comorbidity (CMS/HCC V24, CMS/HCC V28) 04/26/2020 DX:Severe obesi ty (BMI 35.0- 39.9) with comorbidity ([facility]) Family History Medical History Relation Name Comments Diabetes Brother 1 No Known Problems Brother 2 x3 Autism Daughter 1 Hypertension Father Diabetes Maternal Grandfather No Known Problems Maternal Grandmother No Known Problems Mother No Known Problems Paternal Grandfather Hypertension Paternal Grandmother Autism Son Relation Name Status Comments Brother 1 Alive Brother 2 Alive Daughter 1 Alive Daughter 2 Alive Father Alive Maternal Grandfather Alive Maternal Grandmother Alive Mother Alive Paternal Grandfather Paternal Grandmother Sister Alive Son Alive Social History Tobacco Use Types Packs/Day Years [...] for your loved ones. For example, child care aide or elderly care for an older adult? [...] file Not on file Not on file Obstetrics History Last Filed Vital Signs Vital Sign Reading [...] Mass Index 33.41 01/01/2025 1:26 PM EDT Plan of Treatment Upcoming Encounters Date Type Department Care Team (Late st Contact Info) Description 02/10/2025 11:15 AM EDT Office Visit Adult Medicine [address] [phone] Thao Nicholson PA [address] [place], [place] 08/18/2025 11:30 AM EDT Office Visit Adult [address] [phone] Dago Franklin MD [address] [place], [place] Health Maintenance Due Date Last Done Comments Diabetes: Annual GFR (Glomerular Filtration Rate) 1990 Diabetes: Annual Foot Exam 2000 Diabetes: Annual Retina Eye Exam 2000 Hepatitis B Vaccines (1 of 3 - 19+ 3-dose series) 2009 DTaP,Tdap,and Td Vaccines (3 - Td or Tdap) 10/24/2019 10/23/2009, 03/21/2004 COVID-19 Vaccine ( - 2023-2 5 season) 2024 Influenza Vaccine (#1) 2024 Cholesterol Screening (Lipid Panel) 12/26/2024 Diabetes: Annual Urine Albumin-Creatinine Ratio (uACR) 12/26/2024 09/28/2021 Diabetes: Blood Sugar Contro l Test (HGBA1C) 12/26/2024 HIV Screening 12/26/2024 Hepatitis C Screening 12/26/2024 Hypertension/CHF/CAD Annual BMP Blood Test 12/26/2024 Social Influencers of Health Screening 01/01/2026 01/01/2025 Pneumococcal Vaccine: Pediatrics (0 to 5 Years) and At-Risk Patients (6 to 49 Years) Completed 08/10/2021, 11/19/2009 Depression Screening Completed 01/01/2025 HIB Vaccines Aged Out No longer eligi [...] patient's age to complete this topic Insurance [facility] [employer] Care Teams Telephoto Installer Relationship Specialty Start Date End Date Dago Franklin MD [address] [place], [place] PCP - General Internal Medicine 12/26/24
--- OUTSIDE RECORDS SUMMARY | 2025-01-05 18:43 | XMS_ITS | Clinical Summary ---
Author Organization [facility] Address [address] [facility] 7 [place] [address] Care Team Providers Care Gravity Manager Name Role Phone Unavailable Primary Care Provider [...] patient's age to complete this topic Insurance [place] [id number]
== END 2025-01-05 13:28 | disposition left against medical advice (07) ==
PROVIDERS: Emergency Provider Emergency Medicine
DX: M54.9 Dorsalgia, unspecified (principal); Z53.21 Procedure and treatment not carried out due to patient leaving prior to being seen by health care provider

== ENCOUNTER 2025-01-05 19:31 | Emergency (ER) | payer OTHER, SELFPAY ==
--- NOTE | ~2025-01-05 | XR_ITS ---
CLINICAL HISTORY: pain x 2 mos 3 views lumbar spine Comparison: None provided Findings: Normal alignment. No acute fractures or dislocation. No significant degenerative change. IMPRESSION: No acute findings. This document has been electronically signed by: Bryan Gamboa MD on 01/05/2025 20:59:54
[2025-01-05 19:52] VITALS: BP 162/98; PULSE 100; RESP 18; TEMP 36.8; O2SAT 97; BMI 33.4
--- NOTE | 2025-01-05 19:52 | ED.GENADULT ---
HPI - General Adult General Chief complaint: Back Pain/Injury Stated complaint: PAIN IN RT SIDE BACK Time Seen by Provider: 01/05/25 23:25 Source: patient Mode of arrival: ambulatory Limitations: no limitations History of Present Illness ED Provider: Dr. Sandoval HPI narrative: This is a 34-year-old male presented hospital today for right lower back pain. Patient stated that he has been dealing with this for past 2 months. However the medication he has been taking has not been helping. He has been taking some gabapentin and muscle relaxer and prednisone without any alleviation. Patient stated that this pain started in his right lower back and radiates down to his legs bilaterally. He denies any saddle paresthesia no bowel incontinence, no urinary retention. No history of IV drug use or trauma. Related Data Previous Rx's ?Medication ?Instructions ?Recorded capsaicin 0.035 % topical patch 1 patch topical QID PRN pain 7 12/24/24 days #10 ea oxycodone 5 mg tablet 5 mg PO Q6H PRN pain #10 tabs 12/24/24 prednisone 20 mg tablet 40 mg (2 x 20 mg) PO DAILY 4 days 12/24/24 #8 tabs cyclobenzaprine 5 mg tablet 5 mg PO TID PRN muscle spasm #15 01/01/25 tabs ketorolac 10 mg tablet 10 mg PO Q8H PRN pain #15 tabs 01/01/25 acetaminophen 500 mg tablet 1,000 mg (2 x 500 mg) PO Q8H 15 01/06/25 (Tylenol Extra Strength) days #90 tabs ibuprofen 400 mg tablet 400 mg PO Q8H 14 days #42 tabs 01/06/25 lidocaine 5 % topical patch 1 patch topical DAILY #15 ea 01/06/25 methylprednisolone 4 mg tablets in 4 mg PO DAILY #21 ea 01/06/25 a dose pack (Medrol (Fadi)) oxycodone 5 mg capsule 5 mg PO Q8H PRN pain 4 days #14 01/06/25 caps Allergies Allergy/AdvReac Type Severity Reaction Status Date / Time No Known Allergies Allergy Verified 01/05/25 19:54 Review of Systems Review of Systems: Pertinent review of systems as mentioned in HPI. All other system otherwise negative. [facility] Past Medical History [facility] Narrative: Medical history as mentioned in [facility] Social History Social History Substance Use Type: Marijuana Advance Directives: No Advance Directives Information Provided: Yes Physical Exam ED Exam Exam: General: Pleasant, no distress, interacting appropriately Head: Normacephalic, atraumatic ENT: oral mucosa moist, neck supple, no tracheal deviation Extremities: Good strength in lower extremities, patient does have right SI joint tenderness on palpation and lumbar tenderness on palpation. Neurological: Awake and alert, no facial droop noted Skin: Warm and dry Psychiatric: Appropriate mood and thoughts Vital Signs: Vital Signs - 24 hr 01/05/25 19:52 01/06/25 00:11 01/06/25 01:49 Temperature 98.2 F 97.6 F 97.6 F Pulse Rate 100 89 89 Respiratory Rate 18 16 16 Blood Pressure 162/98 H 164/100 H 164/100 H Pulse Oximetry 97 99 99 Oxygen Delivery Method Room Air Room Air Room Air BMI result Body Mass Index 33.4 Course Course Course Narrative: This is a rapid medical exam performed by Kyler Peña NP: Additional HPI, ROS, PE not included below will be deferred to primary provider. Patient is a 34-year-old male presenting to the ED with complaint of right flank/back pain. Seen here on 01/01, dx with strain, slight improvement with muscle relaxers. Sxs for 2 months. Denies fall or other trauma. Denies saddle anesthesia or b/b incontinence. Plan: lumbar xray Medications Administered Discontinued Medications Generic Name Dose Route Start Last Admin Trade Name Freq PRN Reason Stop Dose Admin Acetaminophen 975 mg 01/06/25 00:31 01/06/25 00:38 Acetaminophen 325 Mg Tablet PO 01/06/25 00:32 975 mg ONCE ONE Administration Lidocaine 1 patch 01/06/25 00:31 01/06/25 00:39 Lidocaine 4 % Patch Adh..Patch TRANSDERMA 01/06/25 00:32 1 patch ONCE ONE Administration Protocol Oxycodone HCl 5 mg 01/06/25 00:31 01/06/25 00:39 Oxycodone Hcl Immed Release 5 Mg Tablet PO 01/06/25 00:32 5 mg ONCE ONE Administration Medical Decision Making Medical Decision Making MDM Narrative: 34-year-old male presented hospital today for lower back pain of 2 month this has been worsening. I have low concern for cauda equina the patient. We will plan to give patient a dose of oxycodone and lidocaine patch and Tylenol at this time. Patient has had thoracic and lumbar x-ray performed. No sign of bony changes or fractures on the x-ray. Patient states he had lumbar CT imaging performed in the past which has been largely negative. He is currently trying to follow up with the spine clinic for further care. Reassessment the patient stated his pain has improved. We will plan to discharge patient with oxycodone Medrol Dosepak, Tylenol ibuprofen to take for his pain. Encouraged him to follow up with the spine clinic. Patient agrees and understands this plan. Differential Diagnosis Differential Diagnoses: The differential diagnosis associated with the presentation includes Lumbago, cauda equina, lumbar radiculopathy Independent Interpretation I performed an independent interpretation of an: Plain X-Ray Radiology Impression Discussion of test interpretation with radiology: I have reviewed the radiologist's reading. Discharge Plan Discharge Clinical Impression: Lumbar radiculopathy Patient Disposition: Home, Self-Care Prescriptions: New oxycodone 5 mg capsule 5 mg PO Q8H PRN (Reason: pain) 4 Days Qty: 14 0RF Rx Instructions: Partial Fill upon patient request. acetaminophen [Tylenol Extra Strength] 500 mg tablet 1,000 mg PO Q8H 15 Days Qty: 90 0RF ibuprofen 400 mg tablet 400 mg PO Q8H 14 Days Qty: 42 0RF lidocaine 5 % adhesive patch,medicated 1 patch topical DAILY Qty: 15 0RF Rx Instructions: leave on most painful area for up to 12 hrs methylprednisolone [Medrol (Fadi)] 4 mg tablets,dose pack 4 mg PO DAILY Qty: 21 0RF No Action cyclobenzaprine 5 mg tablet 5 mg PO TID PRN (Reason: muscle spasm) Qty: 15 0RF ketorolac 10 mg tablet 10 mg PO Q8H PRN (Reason: pain) Qty: 15 0RF Rx Instructions: patient was given 30mg IM toradol in the ED for inflammation and pain of mid back prednisone 20 mg tablet 40 mg PO DAILY 4 Days Qty: 8 0RF capsaicin 0.035 % adhesive patch,medicated 1 patch topical QID PRN (Reason: pain) 7 Days Qty: 10 0RF oxycodone 5 mg tablet 5 mg PO Q6H PRN (Reason: pain) Qty: 10 0RF Rx Instructions: Partial Fill upon patient request. Interventions: ED Discharge Assessment Last Done: 01/06/25 01:49 Discharge Date/Time: 01/06/25 01:49 Print Language: Nepali
[2025-01-06 00:11] VITALS: BP 164/100; PULSE 89; RESP 16; TEMP 36.4; O2SAT 99
--- NOTE | 2025-01-06 00:33 | PC.NURSE ---
at bedside for primary eval.
[2025-01-06] MEDS: Lidocaine 4 % Patch ADH..PATCH 1 PATCH TRANSDERMA (00:39)
[2025-01-06] MEDS: oxyCODONE HCl Immed Release 5 MG TABLET PO (00:39)
--- NOTE | 2025-01-06 00:40 | PC.NURSE ---
Pt medicated per JUN for 10 pain.
[2025-01-06 01:49] VITALS: BP 164/100; PULSE 89; RESP 16; TEMP 36.4; O2SAT 99
== END 2025-01-06 01:49 | disposition home or self-care (01) ==
PROVIDERS: Emergency Provider Student in an Organized Health Care Education/Training Program; PCP Nurse Practitioner Family
DX: M54.16 Radiculopathy, lumbar region (principal); M54.50 Low back pain, unspecified; Z79.899 Other long term (current) drug therapy
CPT/HCPCS: 72100; 99283; 99284

== ENCOUNTER → 2025-01-05 19:54 | Outpatient (BNV) | payer OTHER, SELFPAY | PROVIDERS: PCP Nurse Practitioner Family; Visit Provider Student in an Organized Health Care Education/Training Program | DX: M54.50 Low back pain, unspecified (principal) | CPT/HCPCS: 72100 ==

== ENCOUNTER 2025-01-23 14:59 | Emergency (ER) | payer OTHER, SELFPAY ==
--- OUTSIDE RECORDS SUMMARY | 2025-01-22 09:00 | XMS_ITS | Encounter Summary ---
Author Organization [facility] Address [address] [place] [address] Care Team Providers Care Finisher Special Stocks Name Role Phone Dago Franklin MD Primary Care Provider Reason for Referral * Consultation (Routine) - Authorized Specialty Diagnoses / Procedures Referred By Vernell t Referred To Contact Podiatry / Orthopaedic Surgery Diagnoses DM (diabetes mellitus), type 2 with neurological complications (CMS/HCC V24, CMS/HCC V28) Ana Luisa West MD [address] [place] [id number] Phone: tel: fax: Angelito Irvin, DPM [address] [place] [phone] Phone: tel: fax: Referral ID Status Reason Start Date Expiration Date Visits Requested Visits Authorized [id number] Authorized Specialty Services Required 01/22/2025 01/22/2026 1 1 Reason for Visit * Reason Comments Diabetes Type 2 follow up * Consultation (Routine) - Authorized Specialty Diagnoses / Procedures Referred By Contac t Referred To Contact Endocrinology Diagnoses DM (diabetes mellitus), type 2 with neurological complications (CMS/HCC V24, CMS/HCC V28) Thao Nicholson PA [address] [place] [phone] Phone: tel: fax: Endocrinology - [facility] [address] [place], [place] Phone: tel: fax: Referral ID Status Reason Start Date Expiration Date Visits Requested Visits Authorized [id number] Authorized Specialty Services Required 01/01/2025 01/01/2026 1 1 Encounter Details Date Type Department Care Team (Late st Contact Info) Description 01/22/2025 9:00 AM EDT Consult Endocrinology - [facility] [address] [place], [place] [phone] Ana Luisa West MD [address] [place], [place] DM (diabetes mellitus), type 2 with neurological complications (CMS/HCC V24, CMS/HCC V28) (Primary Dx) Social History Tobacco Use Types Packs/Day Years Used Date Smoking Tobacco: Former Cigarettes Smokeless Tobacco: Former Tobacco Cessation:Counseling Given: Not Answered Comments:Quit 2022 Alcohol Use Standard Drinks/Week Comments [...] your loved ones. For example, child care specialist or elderly care for an older adult? [...] Date Recorded What is your living situation? Unrecognized valu e 01/01/2025 Sex and Gender Information Value Date [...] Sign Reading Time Taken Comments Blood Pressure 108/81 01/22/2025 8:57 AM EDT Pulse 110 01/22/2025 8:57 AM EDT Temperature 36.4 C (97.6 F) 01/22/2025 8:57 AM EDT Respiratory Rate 14 01/22/2025 8:57 AM EDT Oxygen Saturation 98% 01/22/2025 8:57 AM EDT Inhaled Oxygen Concentration - - Weight 95.3 kg (210 lb) 01/22/2025 8:57 AM EDT Height - - Body Mass Index 33.89 01/15/2025 9:29 PM EDT documented in this encounter Ordered Prescriptions Prescription Sig Dispense Quantity Refills Last Filled Start Date End Date DULoxetine (Cymbalta) [address] capsule Take 1 capsule (60 mg total) by mouth 1 (one) time each day. Do not crush or chew. 30 each 2 01/22/2025 6 blood-glucose meter kit Use 4x daily to monitor blood sugars for Type 2 DM 1 each 01/22/2025 5 documented in this encounter Progress Notes * Ana Luisa West MD - 01/22/2025 9:00 AM EDT Decrease your Lantus dose to 30U daily Humalog slilding scale: 100-149 8U 150-199 10U 200-249 12U 250-299 14U 300-349 16U >350 18U * Ana Luisa West MD - 01/22/2025 9:00 AM EDT CHIEF COMPLAINT: Diabetes (Type 2 follow up) IDENTIFIER: Joshua Cohen is a 34 y.o. old male. HPI: 34-year-old male with Past medical history of type 2 diabetes mellitus, hypertension, obesity presents to the clinic today for initial evaluation of diabetes mellitus. Diagnosed at age: [age] years old Patient reports that he was in the hospital for DKA when he was diagnosed with diabetes. He was discharged on metformin which he took for about an year after which he was switched to insulin. He took insulin for a few years but lost health insurance so has not had follow up. His brother is also a diabetic so he was using his brother's medications. Reports he missed multiple doses of insulin in the past but has never had DKA. He got his health insurance back 3 months ago and is here to establish care. Current DM medications: Lantus 64 units daily at bedtime, Humalog per sliding scale (takes 2-8U before each meal) Previous DM medications: metformin HbA1c: 11% 3 months ago per patient report Poc blood glucose today: Lab Results Component Value Date GLUCOSE 89 01/15/2025 Blood glucose review: does fingersticks 3-4x daily, does not have meter during today's visit Hypoglycemia: yes, once weekly Diet: BF: oatmeal, scrambled eggs Lunch: Kerby, skips lunch often Dinner: Pastas, Rice and chicken Fresh fruit Has not been snacking No sodas Exercise: no formal exercise Last saw eye doctor: Last month. Has retinopathy. Getting shots in the eyes Peripheral neuropathy: yes , on gabapentin 1200mg daily Nephropathy: yes , on lisinopril ASCVD: no Gastroparesis: no Ulcers/amputations: no ROS: GENERAL: Negative for malaise, significant weight loss and fever HEENT: No changes in hearing or vision. No nosebleeds or other nasal problems RESPIRATORY: No cough, wheezing or shortness of breath CARDIOVASCULAR: Negative for chest pain, leg swelling and palpitations GI: Negative for abdominal discomfort, changes in bowel habits, blood in stool or black stools : Negative for dysuria, frequency, and incontinence SKIN: No lesions, rash, or itching ENDOCRINE: See HPI NEURO: No persistent headache, fainting, seizures, strokes, TIAs, weakness. Has neuropathy in feet PAST MEDICAL HISTORY: Patient Active Problem List Diagnosis Date Noted Severe obesity ([facility] V24, [facility] V28) 01/08/2025 Essential hypertension, benign 08/10/2021 DM (diabetes mellitus), type 2 with neurological complications ([facility] [place], [facility] V28) 04/26/2020 Microalbuminuria 04/26/2020 Bilateral carpal tunnel syndrome 06/17/2018 DM (diabetes mellitus), type 2 with renal complications [place] [place], [facility] V28) 09/01/2017 SOCIAL HISTORY: Social History Tobacco Use Smoking status: Former Types: Cigarettes Smokeless tobacco: Former Tobacco comments: Quit 2022 Substance Use Topics Alcohol use: Not Currently FAMILY HISTORY: Family Status Relation Name Status Mother Alive Father Alive Sister Alive Brother Alive Brother Alive Daughter Alive Daughter Alive Son Alive MGM Alive MGF Alive PGM PGF No partnership data on file Family History[1] ACTIVE MEDICATIONS: Medications Taking[2] ALLERGIES: Patient has no known allergies. PHYSICAL EXAM: Blood pressure 108/81, pulse 110, temperature 36.4 ??C (97.6 ??F), temperature source Temporal, resp. rate 14, weight 95.3 kg (210 lb), SpO2 98%. Body mass index is 33.89 kg/m??. GENERAL: Alert and oriented, in no acute distress. Well-nourished and well-hydrated. HEAD/NECK: Normocephalic and atraumatic. EYES: Pupils equal, round, and reactive to light (PERRLA). Extraocular movements intact. Conjunctivae clear. LUNGS: Lungs clear to auscultation bilaterally. No wheezes, rales, or rhonchi. CARDIOVASCULAR: Regular rate and rhythm. Normal S1 and S2 sounds. No murmurs or gallops. ABDOMEN: Soft, non-tender, and non-distended. Bowel sounds are active and normal. EXTREMITIES: No edema or deformities. Full range of motion in all joints. FOOT: Sensory exam of the foot is normal , tested with the monofilament. 2+ dorsalis pedis pulses, no lesions or ulcers. NEUROLOGICAL: Alert and oriented. Grossly nonfocal SKIN: Skin is warm, dry, and intact. LABS: No results found for: HGBA1C , CHOL , LDLCALC , HDL , TRIG , GLU , CREATUR , MICROALBUR , MICROALBCREA Lab Results Component Value Date GLUCOSE 89 01/15/2025 IMPRESSION: 1. DM (diabetes mellitus), type 2 with neurological complications ([facility] V24, [facility] V28) 34-year-old male with past medical history of type 2 diabetes mellitus complicated by diabetic neuropathy, hypertension, chronic low back pain presents to the clinic today to establish care for his type 2 diabetes mellitus. Patient is currently taking Lantus 64 units daily and takes 2 to 8 units of Humalog before each meal. He does not have his meter with him during today's visit. He reports that he is having hypoglycemiaat least once a week and it is usually overnight. Last HbA1c per patient report was 11% 3 months ago. Patient's regimen appears to be over basalised which could be causing his overnight hypoglycemia. Will plan to decrease his total daily insulin dose by 20% and redistribute to basal and prandial. PLAN: - Decrease Lantus to 30 units nightly - Start Humalog sliding scale at 8 units for blood sugar 100mg/dL with interval increase of 2 unitsfor every 50mg/dL, 3 times daily AC Sliding scale was provided to patient. - Prescription for a new glucometer was provided. He would also benefit from having a continuous glucose monitor. Will send in a prescription. I gave him a sample for freestyle brandon 3+ CGM and provided him with instructions to connect to theclinic portal. Patient is also complaining of significant neuropathy in his feet. He is currently taking gabapentin 300 mg 3 times a day but reports that it does not help. - Discontinue gabapentin - Start Cymbalta 60 mg nightly His primary care provider placed orders for him to get an updated lipid panel, HbA1c, and urine microalbumin. Follow-up in 4 weeks Orders Placed This Encounter Procedures Ambulatory referral to Podiatry Standing Status: Future Expiration Date: 01/22/2026 Referral Priority: Routine Referral Type: Consultation Referral Reason: Specialty Services Required Requested Specialty: Podiatry Number of Visits Requested: 1 ADDITIONAL ORDERS: AMB REFERRAL TO ENDOCRINOLOGY AMB REFERRAL TO PODIATRY Ana Luisa West MD on 01/22/2025 at 9:46 AM EDT Endocrinology, Diabetes, and Metabolism [1] Family History Problem Relation Name Age of Onset No Known Problems Mother Hypertension Father Diabetes Brother No Known Problems Brother x3 Autism Daughter Autism Son No Known Problems Maternal Grandmother Diabetes Maternal Grandfather Hypertension Paternal Grandmother No Known Problems Paternal Grandfather [2] No outpatient medications have been marked as taking for the 01/22/25 encounter (Consult) with Ana Luisa West MD. documented in this encounter Plan of Treatment Upcoming Encounters Date Type Department Care Team (Late st Contact Info) Description 01/27/2025 11:00 AM EDT Office Visit Adult Medicine [address] [phone] Thao Nicholson PA [address] [place] [address] 02/10/2025 11:15 AM EDT Office Visit Adult Medicine [address] [phone] Thao Nicholson PA [address], [place] 02/24/2025 10:00 AM EST Office Visit [address] [phone] Ana Luisa West MD [address] [place] [address] 08/18/2025 11:30 AM EDT Office Visit Adult Medicine [address] [phone] Dago Franklin MD [address] [place] [address] Scheduled Referrals Name Type Priority Associated Diagnoses Orde r Schedule Ambulatory referral to Podiatry Outpatient Referral Routine DM (diabetes mellitus), type 2 with neurological complications ([facility] V24, [facility] V28) 1 Occurrences starting 01/22/2025 until 01/22/2026 documented as of this encounter Visit Diagnoses Diagnosis DM (diabetes mellitus), type 2 with neurological complications ([facility] V24, [facility] V28)- Primary Type II or unspecified type diabetes mellitus with neurological manifestations, not stated as uncontrolled documented in this encounter Discontinued Medications Medication Sig Discontinue Reason Start Date End Da te gabapentin (NEURONTIN) 600 mg tablet Take 1 tablet (600 mg total) by mouth at bedtime. Ineffective 01/19/2025 01/22/2025 documented as of this encounter Orders Outpatient Referral Count Last Ordered Date Fir st Ordered Date AMB REFERRAL TO ENDOCRINOLOGY 1 01/22/2025 documented in this encounter Additional Health Concerns Assessment Noted Time PHQ-9 Depression Total Score: 27 025 1:27 PM EDT documented as of this encounter Care Teams Finisher Special Stocks Relationship Specialty Start Date End Date Dago Franklin MD [address] [place] [address] PCP - General Internal Medicine 12/26/24 documented as of this encounter
--- NOTE | ~2025-01-23 | XR_ITS ---
EXAMINATION: XR CHEST CLINICAL INFORMATION: cough 1 week COMPARISON: None available. TECHNIQUE: PA and lateral views FINDINGS: No hyperinflation. No consolidation, pleural effusion or pneumothorax. Cardiomediastinal silhouette size is normal. Mild multilevel thoracic spondylosis. Patient's large body habitus. Pectus carinatum. XR/XR chest 2V IMPRESSION: No acute airspace disease. Electronically signed by: Devonte Delgadillo MD 01/23/2025 03:52 PM EDT
--- OUTSIDE RECORDS SUMMARY | 2025-01-23 06:25 | XMS_ITS | Encounter Summary ---
Author Organization [facility] Address [address] [place] [address] Care Team Providers Care Operating Table Assembler Name Role Phone Dago Franklin MD Primary Care Provider Reason for Visit * Reason Comments Abdominal Pain Vomiting Encounter Details Date Type Department Care Team (Late st Contact Info) Description 01/23/2025 6:25 AM EDT - 01/23/2025 7:46 AM EDT Emergency [facility] Emergency [address] [place] [phone] Danielle Dent MD [address] [place] [address] Discharge Disposition: Home or Self Care Social History Tobacco Use Types Packs/Day Years [...] for your loved ones. For example, child center assistant or elderly care for an older adult? [...] Sign Reading Time Taken Comments Blood Pressure 154/90 01/23/2025 6:30 AM EDT Pulse 90 01/23/2025 6:30 AM EDT Temperature 36.6 C (97.9 F) 01/23/2025 6:30 AM EDT Respiratory Rate 16 01/23/2025 6:30 AM EDT Oxygen Saturation 100% 01/23/2025 6:30 AM EDT Inhaled Oxygen Concentration - - Weight 95.3 kg (210 lb) 01/23/2025 6:30 AM EDT Height 167.6 cm (5' 6 ) 01/23/2025 6:30 AM EDT Body Mass Index 33.89 01/23/2025 6:30 AM EDT documented in this encounter Functional Status * Calculated C-SSRS Risk Score (Lifetime/Recent) Answer Date of Assessment Author No Risk Indicated 01/23/2025 6:28 AM EDT Kathie Fletcher, MAISHA * [place] Suicide Severity Rating Scale (Screener/Recent Self-Report) Question Answer Date of Assessment Author 1. Wish to be (Past 1 Month) No 025 6:28 AM EDT Kathie Fletcher, MAISHA 2. Non-Specific Active Suici kimberlee Thoughts (Past 1 Month) No 01/23/2025 6:28 AM EDT Kathie Fletcher, MAISHA 6. Suicidal Behavior (Lifetime) No 5 6:28 AM EDT Kathie Fletcher RN documented as of this encounter Medications at Time of Discharge amLODIPine (NORVASC) 5 mg tablet Take 1 tablet (5 mg total) by mouth 1 (one) time each day. BD Ultra-Fine Milady Pen Needle 32 gauge x 5/32 needle USE ONE NEEDLE TWO TIMES A DAY 5 blood-glucose meter (OneTouch Ultra2 Meter) misc 4 (four) times a day (before meals and nightly). Use to monitor blood sugar up to 4 times daily for type 2 diabetes mellitus E11.9 1 each 5 04/22/20 25 blood-glucose sensor (FreeStyle Willow 3 Plus Sensor) deviceIndications: DM (diabetes mellitus), type 2 with neurological complications (CMS/[facility] V24, CMS/[facility] V28) Box = Kit = EA 5 cholecalciferol (VITAMIN D-3) 50 mcg (2,000 unit) tablet Take 1 tablet (2,000 Units total) by mouth 1 (one) time each day. 5 docusate sodium (COLACE) 100 mg capsule Take 1 capsule (100 mg total) by mouth. 5 DULoxetine (Cymbalta) [address] capsule Take 1 capsule (60 mg total) by mouth 1 (one) time each day. Do not crush or chew. 30 each 2 5 01/23/20 26 ibuprofen (ADVIL,MOTRIN) 800 mg tablet Take 1 tablet (800 mg total) by mouth. 9 insulin lispro (HumaLOG KwikPen) 100 unit/mL injection pen INJECT UNDER THE SKIN PER SLIDING SCALE UP TO 30 UNITS MAX DAILY lancets (TenTwenty7Touch UltraSoft 2 Lancet) 30 gauge misc Use to monitor blood sugars up to 4 times daily for type 2 diabetes mellitus E11.9 100 each 2 5 Lantus Solostar U-100 Insulin 100 unit/mL (3 mL) injection pen INJECT 64 UNITS SUBCUTANEOUSLY EVERY EVENING Lidocaine Pain Relief 4 % patch APPLY ONE PATCH EXTERNAL THREE TIMES A DAY NEEDED FOR PAIN 5 lisinopriL (PRINIVIL,ZESTRIL) 20 mg tablet Take 1 tablet (20 mg total) by mouth 1 (one) time each day. methocarbamoL (ROBAXIN) 500 mg tablet Take 1 tablet (500 mg total) by mouth 2 (two) times a day for 7 days. 14 each 5 TenTwenty7Touch Ultra Test test strip Use to monitor blood sugars up to 4 times daily for type 2 diabetes mellitus E11.9 100 each 2 5 01/23/20 26 oxyCODONE (ROXICODONE) 5 mg immediate release tablet Take 1 tablet (5 mg total) by mouth every 6 (six) hours if needed. for pain Max Daily Amount: 20 mg 5 tamsulosin (FLOMAX) 0.4 mg 24 hr capsule TAKE ONE CAPSULE BY MOUTH EVERY DAY NEEDED DIFFICULTY URINATING 5 traZODone (DESYREL) 150 mg tablet Take 1 tablet (150 mg total) by mouth. at bedtime 5 documented as of this encounter Discharge Disposition Disposition Code Departure Means Destination Home or Self Care documented in this encounter Progress Notes * Danielle Dent MD - 01/23/2025 7:32 AM EDT Joshua Cohen Reviewed patients history, went to get him from waiting room but it seems he had left. Attempted tocall patient but he did not oyster picker. * Kathie Fletcher RN - 01/23/2025 6:28 AM EDT Pt c/o mid abd pain n/v since last night . Unable to tolerate po intake documented in this encounter Plan of Treatment Upcoming Encounters Date Type Department Care Team (Late st Contact Info) Description 01/27/2025 11:00 AM EDT Office Visit Adult [address] [phone] Thao Nicholson PA [address] [place] [address] 02/10/2025 11:15 AM EDT Office Visit Adult [address] [phone] Thao Nicholson PA [address] [place] [address] 02/24/2025 10:00 AM EST Office Visit [address] [phone] Ana Luisa West MD [address] [place] [address] 08/18/2025 11:30 AM EDT Office Visit [address] [phone] Dago Franklin MD [address] [place] [address] documented as of this encounter Visit Diagnoses Not on filedocumented in this encounter Additional Health Concerns Assessment Noted Time PHQ-9 Depression Total Score: 27 025 1:27 PM EDT documented as of this encounter Care Teams Operating Table Assembler Relationship Specialty Start Date End Date Dago Franklin MD [address] [place] [address] PCP - General Internal Medicine 12/26/24 documented as of this encounter
--- NOTE | 2025-01-23 15:07 | ED.GENADULT ---
HPI - General Adult General Chief complaint: General Medical Stated complaint: Chills Cough Time Seen by Provider: 01/23/25 19:29 Source: patient Mode of arrival: ambulatory Limitations: no limitations History of Present Illness ED Provider: BANDAR PERALES PA-C HPI narrative: 34 yo M with PMH significant for HTN, type II DM, BPH, and lumbar back pain presents to the ED with cough x1 week. no sputum production. No fever, chills, rashes, SOB, chest pain. No sick contacts. Patient also reports concern that he may be withdrawing from gabapentin. Patient reports chronic low back pain that has been managed with gabapentin x3 months. He has been on 600 mg t.i.d. over the past 2 months. This was abruptly discontinued 2 days ago when his provider switched him over to cymbalta. He reports nausea, vomiting, and anxiety x24 hours. Related Data Previous Rx's ?Medication ?Instructions ?Recorded capsaicin 0.035 % topical patch 1 patch topical QID PRN pain 7 12/24/24 days #10 ea oxycodone 5 mg tablet 5 mg PO Q6H PRN pain #10 tabs 12/24/24 prednisone 20 mg tablet 40 mg (2 x 20 mg) PO DAILY 4 days 12/24/24 #8 tabs cyclobenzaprine 5 mg tablet 5 mg PO TID PRN muscle spasm #15 01/01/25 tabs ketorolac 10 mg tablet 10 mg PO Q8H PRN pain #15 tabs 01/01/25 acetaminophen 500 mg tablet 1,000 mg (2 x 500 mg) PO Q8H 15 01/06/25 (Tylenol Extra Strength) days #90 tabs ibuprofen 400 mg tablet 400 mg PO Q8H 14 days #42 tabs 01/06/25 lidocaine 5 % topical patch 1 patch topical DAILY #15 ea 01/06/25 methylprednisolone 4 mg tablets in 4 mg PO DAILY #21 ea 01/06/25 a dose pack (Medrol (Fadi)) oxycodone 5 mg capsule 5 mg PO Q8H PRN pain 4 days #14 01/06/25 caps gabapentin 300 mg capsule See Rx Instructions .Route 01/23/25 .COMPLEX #60 caps ondansetron 4 mg disintegrating 4 mg PO Q8H PRN nausea and 01/23/25 tablet vomiting #10 tabs Allergies Allergy/AdvReac Type Severity Reaction Status Date / Time No Known Allergies Allergy Verified 01/23/25 15:18 Review of Systems Review of Systems: Yes all other systems are reviewed and are negative [facility] Past Medical History Attestation statement: The following information was validated with the patient. Source: old records reviewed and nursing notes reviewed Social History Social History Substance Use Type: Marijuana Advance Directives: No Advance Directives Information Provided: No Physical Exam ED Vital Signs: Vital Signs - 24 hr 01/23/25 15:17 01/23/25 20:07 01/23/25 20:45 Temperature 98.3 F 97.9 F Pulse Rate 108 H 94 Respiratory Rate 16 Blood Pressure 169/112 H 188/109 H 154/96 H Pulse Oximetry 97 Oxygen Delivery Method Room Air BMI result Body Mass Index 31.5 Hypertensive, tachycardic General: Well appearing, in no acute distress. Skin: Warm, dry, intact. No rashes or lesions. Head: Normocephalic, atraumatic. EENT: Hearing is intact b/l. Conjunctiva clear. Sclera is anicteric. PERRLA. EOM intact. Moist mucous membranes.? Cardiac: Chest wall symmetric. RRR Lungs: Normal respiratory effort without accessory muscle use. CTA bilaterally. No rales, rhonchi, or wheezes.? Abdomen: Soft, non-tender, non-distended. No rebound tenderness or guarding. Positive BS x4. Back: No midline spinous or paraspinal tenderness. No step off deformity. Ext: Upper and lower extremities atraumatic, without tenderness, deformity, swelling or erythema Neuro: AOx3. Normal speech. Ambulating with steady gait Course Course Course Narrative: This is a rapid medical exam performed by Kyler Peña NP: Additional HPI, ROS, PE not included below will be deferred to primary provider. Patient is a 34-year-old male presenting to the emergency department with complaint of generalized body aches, cough for the past week. Also notes that his PCP recently discontinued his gabapentin and tramadol for the past week. Plan: labs, viral serology, cxr Reevaluation(s) Reevaluation #1: CBC without leukocytosis. No left shift. H&H stable. Chemistry without acute electrolyte abnormality requiring intervention. No LÁZARO. Random glucose 188, no anion gap. Liver function at baseline. Negative COVID, flu. Chest x-ray without infiltrate or consolidation to suggest pneumonia. > symptoms concerning for gabapentin withdrawal. On review of [employer], it appears patient has been taking quite a large dose of gabapentin over the past 3 months. Prescribed 600 mg TID which was abruptly discontinued yesterday. I feel he is withdrawing from this. I will be giving him a dose of 600 mg of gabapentin, PO trial him, and sent him home on a gabapentin taper over the next 20 days. > His blood pressure is elevated here however he was unable to take his amlodipine or lisinopril today. He was given a dose of his amlodipine in the ED with improvement in BP to 154/96. Medications Administered Discontinued Medications Generic Name Dose Route Start Last Admin Trade Name Freq PRN Reason Stop Dose Admin Amlodipine Besylate 5 mg 01/23/25 19:54 01/23/25 20:07 Amlodipine Besylate 5 Mg Tablet PO 01/23/25 19:55 5 mg ONCE ONE Administration Protocol Gabapentin 600 mg 01/23/25 19:53 01/23/25 20:07 Gabapentin 600 Mg Tablet PO 01/23/25 19:54 600 mg ONCE ONE Administration Ondansetron HCl 4 mg 01/23/25 19:53 01/23/25 20:07 Ondansetron Odt 4 Mg Tab.Rapdis TRANSLINGU 01/23/25 19:54 4 mg ONCE ONE Administration Medical Decision Making Medical Decision Making [facility] Narrative: 34 yo M with PMH significant for HTN, type II DM, BPH, and lumbar back pain presents to the ED with cough x1 week. Differential diagnosis includes URI, viral syndrome, pneumonia, bronchitis, gabapentin withdrawal Differential Diagnosis Differential Diagnoses: The differential diagnosis associated with the presentation includes as above. Admission/Observation not indicated. Lab Data [facility] Lab Attestation statement: I reviewed the patient's lab results. as above. 01/23/25 15:38 01/23/25 15:38 Labs: Lab Results 01/23/25 Range/Units 15:38 WBC 9.4 (4.8-10.8) X10*3/uL RBC 4.81 (4.60-5.80) X10*6/uL Hgb 14.4 (14.0-18.0) g/dl Hct 39.7 L (42.0-52.0) % MCV 82.5 (80.0-98.0) fL MCH 29.9 (27.0-33.0) pg MCHC 36.3 H (31.0-36.0) g/dl RDW 12.2 (11.0-16.0) % Plt Count 339 D (160-400) X10*3/uL MPV 8.8 L (9.4-12.4) fL Immature Gran % (Auto) 0.1 (0.0-0.4) % Neut % (Auto) 73.3 H (45-73) % Lymph % (Auto) 19.3 L (20-40) % [place] % (Auto) 6.4 (2-11) % Eos % (Auto) 0.6 (0-4) % Baso % (Auto) 0.3 (0-2) % Lymph # (Auto) 1.8 (1.2-4.9) X10*3/uL [place] # (Auto) 0.6 (0.1-1.2) X10*3/uL Eos # (Auto) 0.1 (0.0-0.4) X10*3/uL Baso # (Auto) 0.0 (0.0-0.2) X10*3/uL Abs Immat Gran (auto) 0.01 (0.00-0.03) X10*3/uL Absolute Neuts (auto) 6.9 (2.0-8.3) x10*3/uL Absolute Nucleated RBC 0.000 (0.0-0.012) X10*3/uL Nucleated RBC % (auto) 0.0 (0.0-0.2) /100WBC Sodium 142 (135-145) mmol/L Potassium 5.1 (3.3-5.1) mmol/L Chloride 104 (96-108) mmol/L Carbon Dioxide 29 (22-29) mmol/L Anion Gap 14 (12-20) BUN 13 (9-16) mg/dL Creatinine 0.76 (0.5-1.4) mg/dL Estim Creat Clear Calc 142.6 Estimated GFR > 60 Random Glucose 188 H (60-115) mg/dL Calcium 10.2 (8.4-10.2) mg/dL Total Bilirubin 0.4 (0.0-1.0) mg/dL AST 26 (5-37) U/L ALT 11 (0-40) U/L Alkaline Phosphatase 67 (39-117) U/L Total Protein 7.8 (6.5-8.0) g/dL Albumin 4.4 (3.5-5.0) g/dL COVID-19 (LETTY) Negative (Negative) COVID-19 Clin Com See Note Influenza Type A (AHMET) Negative (Negative) Influenza Type B (AHMET) Negative (Negative) Influenza A & B Note See Note Independent Interpretation I performed an independent interpretation of an: Plain X-Ray Interpretation: Chest x-ray without infiltrate or consolidation Radiology Impression Discussion of test interpretation with radiology: I have reviewed the radiologist's reading. Radiologist Impression: Date of Service: 01/23/25 Procedure(s): XR chest 2V Accession Number(s): [id number] cc: Dago Franklin MD; Cecilia Peña NP~ Reason for Exam: cough 1 week EXAMINATION: XR CHEST CLINICAL INFORMATION: cough 1 week COMPARISON: None available. TECHNIQUE: PA and lateral views FINDINGS: No hyperinflation. No consolidation, pleural effusion or pneumothorax. Cardiomediastinal silhouette size is normal. Mild multilevel thoracic spondylosis. Patient's large body habitus. Pectus carinatum. XR/XR chest 2V IMPRESSION: No acute airspace disease. Electronically signed by: Devonte Delgadillo MD 01/23/2025 03:52 PM EDT External Record Review External record reviewed: Inpatient record Prescription Management I considered prescription management with: Other (gabapentin) Chronic Conditions Patient?s care impacted by: Other (chronic low back pain) Social Determinants Patient?s care significantly limited by Social Determinants of Health including: Other Social Determinant of Health Critical Care Time Critical Care Time Critical Care Time: No Discharge Plan Discharge Clinical Impression: Drug withdrawal Patient Disposition: Home, Self-Care Instructions: Gabapentin (By mouth) Additional Instructions: You appear to be withdrawing from your gabapentin. This is a medication that needs to be tapered down. It should not be stopped abruptly. I have sent a taper to your pharmacy. Take this as prescribed over the next few weeks. On days 1-4, take 300 mg in the morning, 600 mg in the afternoon, and 600 mg at bedtime. On days 5-8, take 600 mg in the morning and 600 mg at bedtime. On days 9-12, take 300 mg in the morning and 600 mg at bedtime. On days 13-16, take 300 mg in the morning and 300 mg at bedtime. On days 17-20, take 300 mg once daily. This is a safe taper regimen. You should not experience any withdrawal symptoms. I am also sending Chelseaabrahan to your pharmacy to help with your nausea/vomiting. Your workup in the ED today was otherwise reassuring. You tested negative for COVID and flu. Blood work is all within normal limits. Your blood pressure was quite elevated today. You were given your home dose of amlopdine with improvement in BP. Continue your home meds as prescribed. Please follow up with your outpatient provider. Return with any new or worsening symptoms. In the case of an emergency call 911. Prescriptions: New gabapentin 300 mg capsule See Rx Instructions .ROUTE .COMPLEX Qty: 60 0RF Rx Instructions: On days 1-4, take 300 mg in the morning, 600 mg in the afternoon, and 600 mg at bedtime. On days 5-8, take 600 mg in the morning and 600 mg at bedtime. On days 9-12, take 300 mg in the morning and 600 mg at bedtime. On days 13-16, take 300 mg in the morning and 300 mg at bedtime. On days 17-20, take 300 mg once daily. ondansetron 4 mg tablet,disintegrating 4 mg PO Q8H PRN (Reason: nausea and vomiting) Qty: 10 0RF No Action cyclobenzaprine 5 mg tablet 5 mg PO TID PRN (Reason: muscle spasm) Qty: 15 0RF ketorolac 10 mg tablet 10 mg PO Q8H PRN (Reason: pain) Qty: 15 0RF Rx Instructions: patient was given 30mg IM toradol in the ED for inflammation and pain of mid back prednisone 20 mg tablet 40 mg PO DAILY 4 Days Qty: 8 0RF capsaicin 0.035 % adhesive patch,medicated 1 patch topical QID PRN (Reason: pain) 7 Days Qty: 10 0RF oxycodone 5 mg tablet 5 mg PO Q6H PRN (Reason: pain) Qty: 10 0RF Rx Instructions: Partial Fill upon patient request. oxycodone 5 mg capsule 5 mg PO Q8H PRN (Reason: pain) 4 Days Qty: 14 0RF Rx Instructions: Partial Fill upon patient request. acetaminophen [Tylenol Extra Strength] 500 mg tablet 1,000 mg PO Q8H 15 Days Qty: 90 0RF ibuprofen 400 mg tablet 400 mg PO Q8H 14 Days Qty: 42 0RF lidocaine 5 % adhesive patch,medicated 1 patch topical DAILY Qty: 15 0RF Rx Instructions: leave on most painful area for up to 12 hrs methylprednisolone [Medrol (Fadi)] 4 mg tablets,dose pack 4 mg PO DAILY Qty: 21 0RF Referrals: Dago Franklin MD [Primary Care Provider, Internal Medicine] Interventions: ED Discharge Assessment Last Done: 01/23/25 21:15 Discharge Date/Time: 01/23/25 19:55 Print Language: Serbian
[2025-01-23 15:17] VITALS: BP 169/112; PULSE 108; RESP 16; TEMP 36.8; O2SAT 97; BMI 31.5
[2025-01-23 15:43] LABS: MANUAL DIFF FLAG NO
[2025-01-23 15:44] LABS: Hematocrit 39.7 % (42.0-52.0); Hemoglobin 14.4 g/dl (14.0-18.0); Imm Gran Abs Auto 0.01 X10*3/uL (0.00-0.03); Imm Gran Pct Auto 0.1 % (0.0-0.4); Lymphocytes Absolute Auto 1.8 X10*3/uL (1.2-4.9); Mean Corpuscular HGB Conc 36.3 g/dl (31.0-36.0); Mean Corpuscular Hemoglobin 29.9 pg (27.0-33.0); Mean Corpuscular Volume 82.5 fL (80.0-98.0); NRBC Abs Auto 0.000 X10*3/uL (0.0-0.012); NRBC Pct Auto 0.0 /100WBC (0.0-0.2); Platelet Count 339 X10*3/uL (160-400); Red Blood Count 4.81 X10*6/uL (4.60-5.80); White Blood Count 9.4 X10*3/uL (4.8-10.8)
[2025-01-23 15:57] LABS: Alanine Aminotransferase 11 U/L (0-40); Albumin Level 4.4 g/dL (3.5-5.0); Alkaline Phosphatase 67 U/L (39-117); Anion Gap 14 (12-20); Aspartate Amino Transferase 26 U/L (5-37); Blood Urea Nitrogen 13 mg/dL (9-16); Calcium 10.2 mg/dL (8.4-10.2); Carbon Dioxide 29 mmol/L (22-29); Chloride 104 mmol/L (96-108); Creatinine Clr Calc Pharmacy 142.6; Estimated Glomerular Filt Rate > 60; Potassium 5.1 mmol/L (3.3-5.1); Sodium 142 mmol/L (135-145); Total Protein 7.8 g/dL (6.5-8.0)
[2025-01-23 16:08] LABS: IDNOW Serial# 58CA691E; Influenza B2 Negative (Negative)
[2025-01-23 16:09] LABS: COVID-19 Test Negative (Negative); IDNOW Serial# 55D5AD1C
--- OUTSIDE RECORDS SUMMARY | 2025-01-23 19:36 | XMS_ITS | Clinical Summary ---
Author Organization [facility] [address] [place] [address] [place] [phone] Phone Care Team Providers Care Diplomatic Courier Name Role Phone Dago Franklin MD Primary Care Provider Allergies No known active allergies Medications amLODIPine (NORVASC) 5 mg tablet Take 1 tablet (5 mg total) by mouth 1 (one) time each day. Active cholecalciferol (VITAMIN D-3) 50 mcg (2,000 unit) tablet Take 1 tablet (2,000 Units total) by mouth 1 (one) time each day. 10/26/19 25 Active docusate sodium (COLACE) 100 mg capsule Take 1 capsule (100 mg total) by mouth. 10/26/19 25 Active ibuprofen (ADVIL,MOTRIN) 800 mg tablet [...] NEEDED FOR PAIN 12/30/19 25 Active lisinopriL (PRINIVIL,ZESTRI L) 20 mg tablet Take 1 tablet (20 mg total) by mouth 1 (one) time each day. Active oxyCODONE (ROXICODONE) 5 mg immediate release tablet Take 1 tablet (5 mg total) by mouth every 6 (six) hours if needed. for pain Max Daily Amount: 20 mg 12/25/19 25 Active BD Ultra-Fine Milady Pen Needle 32 gauge x 32 needle USE ONE NEEDLE TWO TIMES A DAY 12/30/19 25 Active tamsulosin (FLOMAX) 0.4 mg 24 hr capsule TAKE ONE CAPSULE BY MOUTH EVERY DAY NEEDED DIFFICULTY URINATING 10/26/19 25 Active traZODone (DESYREL) 150 mg tablet Take 1 tablet (150 mg total) by mouth. at bedtime 12/30/19 25 Active methocarbamoL (ROBAXIN) 500 mg tablet Take 1 tablet (500 mg total) by mouth 2 (two) times a day for 7 days. 14 each 01/17/20 25 Active DULoxetine (Cymbalta) [address] capsule Take 1 capsule (60 mg total) by mouth 1 (one) time each day. Do not crush or chew. 30 each 2 01/23/20 25 026 Active blood-glucose meter (OneTouch Ultra2 Meter) misc 4 (four) times a day (before meals and nightly). Use to monitor blood sugar up to 4 times daily for type 2 diabetes mellitus E11.9 1 each 01/23/20 25 025 Active OneTouch Ultra Test test strip Use to monitor blood sugars up to 4 times daily for type 2 diabetes mellitus E11.9 100 each 2 01/23/20 25 026 Active lancets (OneTouch UltraSoft 2 Lancet) 30 gauge misc Use to monitor blood sugars up to 4 times daily for type 2 diabetes mellitus E11.9 100 each 2 01/23/20 25 Active blood-glucose sensor (FreeStyle Willow 3 Plus Sensor) deviceIndication s:DM (diabetes mellitus), type 2 with neurological complications ([facility] V24, [facility] V28) Box = Kit = EA 01/23/20 25 Active doxycycline (MONODOX) 100 mg capsule TAKE ONE CAPSULE BY MOUTH TWICE DAILY FOR 7 DAYS. STAY OUT OF THE SUN WHILE TAKING THIS MEDICATION IT INCREASES RISK OF SUNBURN 05/11/19 25 025 Discontin ued(Thera py completed ) escitalopram (LEXAPRO) 5 mg tablet Take 1 tablet (5 mg total) by mouth daily. 03/30/20 22 025 Discontin ued(Thera py completed ) gabapentin (NEURONTIN) 600 mg tablet Take 1 tablet (600 mg total) by mouth. 12/25/19 025 Discontin ued(Reord er) predniSONE (DELTASONE) 20 mg tablet TAKE TWO TABLETS BY MOUTH EVERY DAY FOR 4 DAYS 12/25/19 025 Discontin ued(Thera py completed ) gabapentin (NEURONTIN) 600 mg tablet Take 1 tablet (600 mg total) by mouth at bedtime. 90 each 3 01/20/20 25 025 Discontin ued(Ineff ective) blood-glucose meter kit Use 4x daily to monitor blood sugars for Type 2 DM 1 each 01/23/20 25 Discontin ued(Dupli batool order) Active Problems Problem Noted Date Diagnosed Date Severe obesity ([facility] V24, [facility] V28) 2024 Essential hypertension, benign 08/10/2021 DM (diabetes mellitus), type 2 with neurological complications ([facility] V24, [facility] V28) 04/26/2020 Microalbuminuria 04/26/2020 Bilateral carpal tunnel syndrome 06/17/2018 DM (diabetes mellitus), type 2 with renal complications ([facility] V24, [facility] V28) 09/01/2017 Encounters Date Type Department Care Team Description 01/23/2025 6:25 AM EDT - 01/23/2025 7:[address] [facility] [address] [place] [phone] Danielle Dent MD Discharge Disposition: Home or Self Care 01/22/2025 9:00 AM EDT Consult Endocrinology [address] [phone] Ana Luisa West MD DM (diabetes mellitus), type 2 with neurological complications ([facility] V24, [facility] V28) (Primary Dx) 01/16/2025 Telephone Adult Medicine [address] [phone] Dago Franklin MD 01/15/2025 11:53 PM EDT - 01/16/2025 3:[address] [facility] [address] [place] [address] Odin Dockery MD Flank pain (Primary Dx) Discharge Disposition: Home or Self Care 01/15/2025 Telephone Adult Medicine [address] [phone] Dago Franklin MD 01/01/2025 1:30 PM EDT Office Visit Adult Medicine [address] [phone] Thao Nicholson PA Encounter to establish care (Primary Dx); Need for hepatitis C screening test; Encounter for screening for HIV; Lumbar radiculopathy; Acute right-sided low back pain with right-sided sciatica; DM (diabetes mellitus), type 2 with neurological complications ([facility] V24, [facility] V28); Vitamin D deficiency 12/26/2024 Telephone Adult Medicine [address] [phone] Dago Franklin MD from Last 3 Months Immunizations Immunization Administration Dates Next Due Pneumococcal conjugate 20 va lent (Prevnar 20, PCV 20) 2mo and older 08/10/2021 Pneumococcal polysaccharide 23 valent (Pneumovax 23) 2yo and older 11/19/2009 Td Tetanus diptheria (Tdvax) 7yo and older 03/21 Tdap Tetanus diptheria acell ular pertussis (Boostrix; Adacel) 7yo and older 10/23/2009 Surgical History Surgery Date Site/Laterality Comments OTHER SURGICAL HISTORY PROCEDURE: DENIES PREVIOUS SURGERY Medical History Medical History Date Comments Essential hypertension, benign D X:Essential hypertension, benign Type 2 diabetes mellitus wit h microalbuminuria, with long-term current use of insulin (CMS/HCC V24, [facility] V28) 09/01/2017 DX:Type 2 diabetes mellitus with microalbuminuria, with long-term current use of insulin (HCC) DM (diabetes mellitus), type 2 with renal complications (CMS/HCC V24, [facility] V28) 09/01/2017 DX:DM (diabetes mellitus), t ype [...] for your loved ones. For example, child and family services specialist or elderly care for an older [...] Mass Index 33.89 01/23/2025 6:30 AM EDT Plan of Treatment Upcoming Encounters Date Type Department Care Team (Late st Contact Info) Description 01/27/2025 11:00 AM EDT Office Visit Adult Medicine [address] [phone] Thao Nicholson PA [address] [place] [address] 02/10/2025 11:15 AM EDT Office Visit Adult Medicine [address] [phone] Thao Nicholson PA [address] [place] [phone] 02/24/2025 10:00 AM EST Office Visit [address] [phone] Ana Luisa West MD [address] [place] [address] 08/18/2025 11:30 AM EDT Office Visit [address] [phone] Dago Franklin MD [address] [place] [phone] Health Maintenance Due Date Last Done Comments Diabetes: Annual Foot Exam 2000 Diabetes: Annual Retina Eye Exam 2000 Hepatitis B Vaccines (1 of 3 - 19+ 3-dose series) 2009 HPV Vaccines (1 - 3-dose SCD M series) 2017 DTaP,Tdap,and Td Vaccines (3 - Td or Tdap) 10/24/2019 10/23/2009, 03/21/2004 COVID-19 Vaccine ( - 2023-2 5 season) 2024 Influenza Vaccine (#1) 2024 Cholesterol Screening (Lipid Panel) 12/26/2024 Diabetes: Annual Urine Albumin-Creatinine Ratio (uACR) 12/26/2024 09/28/2021 Diabetes: Blood Sugar Contro l Test (HGBA1C) 12/26/2024 HIV Screening 12/26/2024 Hepatitis C Screening 12/26/2024 Social Influencers of Health Screening 01/01/2026 01/01/2025 Diabetes: Annual GFR (Glomerular Filtration Rate) 01/15/2026 01/15/2025 Hypertension/CHF/CAD Annual BMP Blood Test 01/15/2026 01/15/2025 RSV Immunization Adult Patients (1 - 1-dose 75+ series) 2065 Pneumococcal Vaccine: Pediatrics (0 to 5 Years) [...] on patient's age to complete this topic Procedures Procedure Name Priority Date/Time Associated Diagnosis Comments CT ABDOMEN PELVIS W CONTRAST STAT 01/16/2025 1:[address] REPORT 01/16/2025 [facility] URINE CULTURE TUBE STAT 01/15/2025 10:15 PM EDT URINALYSIS WITH REFLEX MICROSCOPIC AND CULTURE STAT 01/15/2025 10:15 PM EDT URINALYSIS WITH REFLEX MICROSCOPIC AND CULTURE STAT 01/15/2025 10:15 PM EDT CBC WITH AUTO DIFFERENTIAL STAT 01/15/2025 10:08 PM EDT COMPREHENSIVE METABOLIC PANEL STAT 01/15/2025 10:08 PM EDT CBC AND DIFFERENTIAL STAT 01/15/2025 10:08 PM EDT from Last 3 Months Results * CT Abdomen Pelvis w Contrast (01/16/2025 1:54 AM EDT) Anatomical Region Laterality Modality Body Computed Tomogra phy 01/16/2025 2:18 AM EDT Impressions 01/16/2025 2:18 AM EDT Mild bladder wall thickening. Correlate for cystitis. Otherwise no acute abdominopelvic findings. This document has been electronically signed by: Charly Mckeon MD on 01/16/2025 02:18:48 Narrative 01/16/2025 2:18 AM EDT INDICATION: Flank pain, kidney stone suspected CT abdomen and pelvis with contrast Comparison: None provided Findings: The lung bases are clear. The gallbladder and solid organs are within normal limits. No renal stones. No bowel obstruction, pneumoperitoneum, or pneumatosis. Normal appendix. Mild bladder wall thickening. The bones are intact. Procedure Note Charly Mckeon - 01/16/2025 INDICATION: Flank pain, kidney stone suspected CT abdomen and pelvis with contrast Comparison: None provided Findings: The lung bases are clear. The gallbladder and solid organs are within normal limits. No renal stones. No bowel obstruction, pneumoperitoneum, or pneumatosis. Normal appendix. Mild bladder wall thickening. The bones are intact. IMPRESSION: Mild bladder wall thickening. Correlate for cystitis. Otherwise no acute abdominopelvic findings. This document has been electronically signed by: Charly Mckeon MD on 01/16/2025 02:18:48 Odin Dockery MD IM CT PROCEDURES Final Result * External CT Report (01/16/2025) Anatomical Region Laterality Modality Computed Tomogra phy Provider [facility] IMG CT PROCEDURES Final Result * (ABNORMAL) Urinalysis with reflex microscopic and culture (01/15/2025 10:15 PM EDT) [facility] Specific [place] Urine 1.024 1.003 - 1.030 LAB URINALYSIS - AUTOMATED METHOD 01/15/2025 11:15 PM [facility] pH, Urine 5.5 5.0 - 8.0 pH LAB URINALYSIS - AUTOMATED METHOD 01/15/2025 11:15 PM [facility] Leukocytes, Urine Negative Negative LAB URINALYSIS - AUTOMATED METHOD 01/15/2025 11:15 PM [facility] Nitrite, Urine Negative Negative LAB URINALYSIS - AUTOMATED METHOD 01/15/2025 11:15 PM [facility] Protein, Urine 30(A) <=Trace mg/dL LAB URINALYSIS - AUTOMATED METHOD 01/15/2025 11:15 PM [facility] Glucose, Urine Negative Negative mg/dL LAB URINALYSIS - AUTOMATED METHOD 01/15/2025 11:15 PM [facility] Ketones, Urine Trace(A) Negative mg/dL LAB URINALYSIS - AUTOMATED METHOD 01/15/2025 11:15 PM [facility] Urobilinogen, Urine 1.0 0.2 - 1.0 mg/dL LAB URINALYSIS - AUTOMATED METHOD 01/15/2025 11:15 PM [facility] Bilirubin, Urine Negative Negative LAB URINALYSIS - AUTOMATED METHOD 01/15/2025 11:15 PM [facility] Blood, Urine Negative Negative LAB URINALYSIS - AUTOMATED METHOD 01/15/2025 11:15 PM [facility] RBC, Urine 1 0 - 4 /HPF 01/15/2025 11:15 PM [facility] WBC, Urine 1 0 - 4 /HPF 01/15/2025 11:15 PM [facility] Squamous Epithelial, Urine 6 0 - 60 /LPF 01/15/2025 11:[address] [facility] Bacteria, Urine Negative Negative /HPF 01/15/2025 11:[address] [facility] Hyaline Casts, Urine 1 0 - 3 /LPF 01/15/2025 11:[address] [facility] Mucus, Urine Trace(A) None /HPF 01/15/2025 11:[address] [facility] Urine Urine specimen obtained by clean catch procedure / Unknown Non-blood Collection / Unknown 01/15/2025 10:15 PM EDT 01/15/2025 10:33 PM EDT Tete Pérez LAB URINE ORDERABLES Pat l Result Performing Organization Address [facility]/ZIP Co de Phone Number [facility] [address] [place] [address], [place] [phone] * [facility] urine culture tube (01/15/2025 10:15 PM EDT) Extra Tube Hold for add-ons. 01/16/2025 12:[address] [facility] Comment:Auto resulted. Urine Urine specimen obtained by clean catch procedure / Unknown Non-blood Collection / Unknown 01/15/2025 10:15 PM EDT 01/15/2025 10:33 PM EDT Tete Pérez [employer] MACHINE TENDER LAB URINE ORDERABLES Pat l Result [facility] [address] [place] [address], [place] [phone] * (ABNORMAL) CBC auto differential (01/15/2025 10:08 PM EDT) WBC 9.0 4.8 - 10.8 K/[facility] LAB HEMETOLOGY METHOD 01/15/2025 10:[address] [facility] RBC 4.80 4.50 - 5.50 M/mcL LAB HEMETOLOGY METHOD 01/15/2025 10:[address] [facility] Hemoglobin 14.0 13.5 - 17.5 g/dL LAB HEMETOLOGY METHOD 01/15/2025 10:46 PM [facility] Hematocrit 40.7(L) 42.0 - 54.0 % LAB HEMETOLOGY METHOD 01/15[facility]25 10:[facility] MCV 84.6 79.0 - 98.0 FL LAB HEMETOLOGY METHOD 01/15/2025 10:46 PM [facility] MCH 29.1 27.0 - 32.0 pcg LAB HEMETOLOGY METHOD 01/15/2025 10:46 PM [facility] MCHC 34.4 32.0 - 37.0 g/dL LAB HEMETOLOGY METHOD 01/15/2025 10:46 PM [facility] RDW 12.4 11.0 - 15.0 % LAB HEMETOLOGY METHOD 01/15/2025 10:46 PM [facility] Platelets 283 130 - 400 K/mcL LAB HEMETOLOGY METHOD 01/15/2025 10:46 PM [facility] MPV 9.6 7.0 - 11.0 FL LAB HEMETOLOGY METHOD 01/15/2025 10:46 PM [facility] NRBC 0.0 <1.0 % LAB HEMETOLOGY METHOD 01/15/2025 10:46 PM [facility] NRBC Absolute 0.00 <0.10 K/mcL LAB HEMETOLOGY METHOD 01/15/2025 10:46 PM [facility] Neutrophils Relative 53.5 % LAB HEMETOLOGY METHOD 01/15/2025 10:46 PM [facility] Lymphocytes Relative 35.9 % LAB HEMETOLOGY METHOD 01/15/2025 10:[address] [facility] Monocytes Relative 8.3 % LAB HEMETOLOGY METHOD 01/15/2025 10:46 PM [facility] Eosinophils Relative 1.7 % LAB HEMETOLOGY METHOD 01/15/2025 10:46 PM [facility] Basophils Relative 0.3 % LAB HEMETOLOGY METHOD 01/15/2025 10:46 PM [facility] Immature Granulocytes Relative 0.3 % LAB HEMETOLOGY METHOD 01/15/2025 10:46 PM [facility] Neutrophils Absolute 4.80 1.50 - 7.00 K/mcL LAB HEMETOLOGY METHOD 01/15/2025 10:46 PM [facility] Lymphocytes Absolute 3.23 1.00 - 5.00 K/mcL LAB HEMETOLOGY METHOD 01/15/2025 10:46 PM [facility] Monocytes Absolute 0.75 0.20 - 1.00 K/mcL LAB HEMETOLOGY METHOD 01/15/2025 10:[address] [facility] Eosinophils Absolute 0.15 0.00 - 0.50 K/mcL LAB HEMETOLOGY METHOD 01/15/2025 10:46 PM [facility] Basophils Absolute 0.03 0.00 - 0.20 K/mcL LAB HEMETOLOGY METHOD 01/15/2025 10:[address] [facility] Immature Granulocytes Absolute 0.03 0.00 - 0.03 K/mcL LAB HEMETOLOGY METHOD 01/15/2025 10:46 PM [facility] Blood Venous blood specimen / Unknown Venipuncture / Unknown 01/15/2025 10:08 PM EDT 01/15/2025 10:31 PM EDT us Tete Pérez [employer] MACHINE TENDER LAB BLOOD ORDERABLES Pat l Result [facility] [address] [place] [address], * Comprehensive metabolic panel (01/15/2025 10:08 PM EDT) Sodium 137 133 - 145 mmol/L LAB CHEMISTRY METHOD 01/15/2025 11:03 PM [facility] Potassium 4.5 3.5 - 5.5 mmol/L LAB CHEMISTRY METHOD 01/15/2025 11:03 PM [facility] Chloride 103 96 - 110 mmol/L LAB CHEMISTRY METHOD 01/15/2025 11:03 PM [facility] CO2 31 21 - 32 mmol/L LAB CHEMISTRY METHOD 01/15/2025 11:03 PM [facility] Anion Gap 3 3 - 11 LAB CHEMISTRY METHOD 01/15/2025 11:03 PM [facility] Glucose 89 70 - 100 mg/dL LAB CHEMISTRY METHOD 01/15/2025 11:03 PM [facility] BUN 17 5 - 25 mg/dL LAB CHEMISTRY METHOD 01/15/2025 11:03 PM [facility] Creatinine 0.86 0.70 - 1.30 mg/dL LAB CHEMISTRY METHOD 01/15/2025 11:03 PM [facility] eGFR 117 >=60 mL/min/1. 73m2 LAB CHEMISTRY METHOD 01/15/2025 11:03 PM [facility] Comment:Calculation based on the Chronic Kidney Disease Epidemiology Collaboration (CKD-EPI) equation refit without adjustment for race. BUN/Creatinine Ratio 19.8 LAB CHEMISTRY METHOD 01/15/2025 11:03 PM [facility] Calcium 9.6 8.5 - 10.5 mg/dL LAB CHEMISTRY METHOD 01/15/2025 11:03 PM [facility] AST (SGOT) 14 10 - 42 unit/L LAB CHEMISTRY METHOD 01/15/2025 11:[address] [facility] ALT (SGPT) 20 10 - 60 unit/L LAB CHEMISTRY METHOD 01/15/2025 11:[address] [facility] Alkaline Phosphatase 81 42 - 121 unit/L LAB CHEMISTRY METHOD 01/15/2025 11:[address] [facility] Total Protein 7.1 6.0 - 8.0 g/dL LAB CHEMISTRY METHOD 01/15/2025 11:[address] [facility] Albumin 3.9 3.2 - 5.0 g/dL LAB CHEMISTRY METHOD 01/15/2025 11:[address] [facility] Total Bilirubin 0.6 0.0 - 1.4 mg/dL LAB CHEMISTRY METHOD 01/15/2025 11:[address] [facility] Blood Venous blood specimen / Unknown Venipuncture / Unknown 01/15/2025 10:08 PM EDT 01/15/2025 10:31 PM EDT us Tete Pérez NP LAB BLOOD ORDERABLES Pat harrison Result [facility] [address] [place] [address], from Last 3 Months Insurance [facility] [employer] Care Teams Diplomatic Courier Relationship Specialty Start Date End Date Dago Franklin MD [address] [place] [phone] PCP - General Internal Medicine 12/26/24
--- OUTSIDE RECORDS SUMMARY | 2025-01-23 19:36 | XMS_ITS | Encounter Summary ---
Author Organization [facility] Address [address] [place] [address] Care Team Providers Care Institutional Nutrition Consultant Name Role Phone Dago Franklin MD Primary Care Provider Reason for Visit * Reason Onset Date Comments Cough 01/15/2025 Encounter Details Date Type Department Care Team (Late st Contact Info) Description 01/15/2025 Telephone Adult Medicine [facility] [address], [place] [phone] Dago Franklin MD [address] [place], [place] Social History Tobacco Use Types Packs/Day Years [...] care for your loved ones. For example, registered nurse maternal child or elderly care for an older adult? [...] on file documented as of this encounter Functional Status * Calculated C-SSRS Risk Score (Lifetime/Recent) Answer Date of Assessment Author No Risk Indicated 01/15/2025 9:31 PM Vicki Ortega RN * [place] Suicide Severity Rating Scale (Screener/Recent Self-Report) Question Answer Date of Assessment Author 1. Wish to be (Past 1 Month) No 01/15/2025 9:31 PM Althea Rudolph RN 2. Non-Specific Active Suicidal Thoughts (Past 1 Month) No 01/15/2025 9:31 PM EDT Althea Hernandez RN 6. Suicidal Behavior (Lifetime) No 01/15/2025 9:31 PM EDT Althea Hernandez RN documented as of this encounter Progress Notes * Adriana Campos RN - 01/15/2025 8:52 AM EDT Pt. Sts has been having Severe back pain mid to lower , diabetic neuropathy pain . Has been in the ER multiple times for this pain. Also has rt upper abd. Pain feels like I have a ball there x 2 months same as the other pains . Pt. Also present time has cold like symptoms . Has sinus and chest congestion, coughing, productive cough , greenish , whitish and yellowish . No fever or chills, has na usea no vomiting and did have diarrhea x 2 days last week . No cp , no sob , does feel lightheaded and dizzy at times not all the time . Abd. Pain is sharp , stabbing pain and it comes and goes . At present he does not have the severe pain but feels something in there and knows it will return aftereating , his last episode of severe pain was yesterday last episode yesterday which was 10/10 worse after I eat No urination issues , no black stools Blood sugar 105 I advised with pt.'s severe back pain and also rt. Upper abd. Pain to be evaluated in the ER. And follow up with office after , have someone drive him . Pt. Agrees * Pascale Yohan - 01/15/2025 8:35 AM EDT Patient call requires triage: Symptoms patient is presenting: Cough, runny nose, tired but can't sleep due to pain issues. How long has patient had these symptoms?: 1 week For ALL patients calling to schedule any appointment (routine, sick visit, follow up, consult, etc.) in the outpatient setting please ask the following questions: Do you have fever of higher than 101, sore throat with difficulty swallowing or severe shortness ofbreath? no If YES to any of these above symptoms, send a message to triage and do not book. Red dot. If no, an audio or video visit should be booked. Have you had close contact with someone with Coronavirus in the last 14 days? no Have you traveled abroad? no Have you traveled recently to another state outside of [place], [place], [place], [place], [place], [place], [place]? no o If yes, did you quarantine for 14 days or have a negative covid test? no If yes to any of the above, patient is not to be scheduled in office until after 14 day quarantine or negative covid test. If pain or injury related was it due to an accident at work or from a motor vehicle accident? If yes, date of accident/Injury: No If yes, gather 3rd constitution party insurance information Third Libertarian Information: not applicable PCP: Dago Franklin MD Payor: [employer] PLAN / Plan: [employer] MEDICAID / Product Type: *No Product type* / documented in this encounter Plan of Treatment Upcoming Encounters Date Type Department Care Team (Late st Contact Info) Description 01/27/2025 11:00 AM EDT Office Visit Adult Medicine [address] [phone] Thao Nicholson PA [address] [place] [address] 02/10/2025 11:15 AM EDT Office Visit Adult Medicine [address] [phone] Thao Nicholson PA [address] [place] [address] 02/24/2025 10:00 AM EST Office Visit [address] [phone] Ana Luisa West MD [address] [place] [address] 08/18/2025 11:30 AM EDT Office Visit Adult Medicine [facility] [address], [place] [phone] Dago Franklin MD [address] [place], [place] documented as of this encounter Visit Diagnoses Not on filedocumented in this encounter Additional Health Concerns Assessment Noted Time PHQ-9 Depression Total Score: 27 025 1:27 PM EDT documented as of this encounter Care Teams Institutional Nutrition Consultant Relationship Specialty Start Date End Date Dago Franklin MD [address] [place] [address] PCP - General Internal Medicine 12/26/24 documented as of this encounter
--- OUTSIDE RECORDS SUMMARY | 2025-01-23 19:36 | XMS_ITS | Clinical Summary ---
Author Organization [facility] Address [address] [place] [address] Care Team Providers Care Director Of Student Affairs Name Role Phone Unavailable Primary Care Provider [...] patient's age to complete this topic [place] [address]
[2025-01-23 19:55] VITALS: BP 154/96; PULSE 94; RESP 16; TEMP 36.6; O2SAT 97
[2025-01-23 20:07] VITALS: BP 188/109
[2025-01-23 20:45] VITALS: BP 154/96; PULSE 94; TEMP 36.6
[2025-01-23 21:15] VITALS: BP 154/96; PULSE 94; RESP 16; TEMP 36.6; O2SAT 97
== END 2025-01-23 19:55 | disposition home or self-care (01) ==
PROVIDERS: Registered Nurse Emergency; Emergency Provider Emergency Medicine; PCP Internal Medicine
DX: F19.239 Other psychoactive substance dependence with withdrawal, unspecified (principal); R05.9 Cough, unspecified; R68.83 Chills (without fever); R11.2 Nausea with vomiting, unspecified; F41.9 Anxiety disorder, unspecified; I10 Essential (primary) hypertension; E11.9 Type 2 diabetes mellitus without complications; N40.0 Benign prostatic hyperplasia without lower urinary tract symptoms; F12.90 Cannabis use, unspecified, uncomplicated
CPT/HCPCS: 71046; 80053; 85025; 87502; 87635; 99283

== ENCOUNTER → 2025-01-23 15:09 | Outpatient (BNV) | payer OTHER, SELFPAY | PROVIDERS: PCP Internal Medicine; Visit Provider Radiology Diagnostic Radiology | DX: R05.9 Cough, unspecified (principal) | CPT/HCPCS: 71046 ==

== ENCOUNTER 2025-02-21 20:17 | Emergency (ER) | payer OTHER, SELFPAY ==
--- OUTSIDE RECORDS SUMMARY | 2025-02-16 18:04 | XMS_ITS | Encounter Summary ---
Author Organization [facility] Address [address] [place] [address] Care Team Providers Care Delivery Director Name Role Phone Dago Franklin MD Primary Care Provider Reason for Visit * Reason Comments Dizziness Near syncope x2 toda y sent in by urgent care Encounter Details Date Type Department Care Team (Late st Contact Info) Description 02/16/2025 6:04 PM EDT - 02/17/2025 1:57 AM EDT Emergency [facility] [address] [place] [id number] Fan Quiros MD [address] [place] [address] Alonzo Rodriguez MD [address] [place] [address] Near syncope (Primary Dx); LÁZARO (acute kidney injury) (CMS/HCC V24); Hyperglycemia due to diabetes mellitus (CMS/HCC V24, CMS/HCC V28); Chest pain, unspecified type; Sinus tachycardia Discharge Disposition: Home or Self Care Social [...] care for your loved ones. For example, children's lunchroom supervisor or elderly care for an older adult? [...] Sign Reading Time Taken Comments Blood Pressure 128/88 02/17/2025 12:48 AM EDT Pulse 89 02/17/2025 12:48 AM EDT Temperature 36.8 C (98.2 F) 02/16/2025 9:02 PM EDT Respiratory Rate 16 02/17/2025 12:48 AM EDT Oxygen Saturation 99% 02/17/2025 12:48 AM EDT Inhaled Oxygen Concentration - - Weight 93 kg (205 lb) 02/16/2025 4:53 PM EDT Height 167.6 cm (5' 6 ) 02/16/2025 4:53 PM EDT Body Mass Index 33.09 02/16/2025 4:53 PM EDT documented in this encounter Functional Status * Calculated C-SSRS Risk Score (Lifetime/Recent) Answer Date of Assessment Author No Risk Indicated 02/16/2025 4:53 PM EDT Yesenia Martell RN * [place] Suicide Severity Rating Scale (Screener/Recent Self-Report) Question Answer Date of Assessment Author 1. Wish to be (Past 1 Month) No 4:53 PM EDT Yesenia Martell RN 2. Non-Specific Active Suici kimberlee Thoughts (Past 1 Month) No 02/16/2025 4:53 PM EDT Bessy Martell RN 6. Suicidal Behavior (Lifetime) No 4:53 PM EDT Yesenia Martell RN documented as of this encounter Discharge Instructions * Discharge Instructions* Fan Quiros MD - 02/16/2025 11:19 PM EDT You were evaluated in the emergency department today for feeling like you you are going to pass outbriefly twice today. We found that your kidney function was worse than 3 weeks ago, which may be due to dehydration. Drink plenty of sugar- free fluids. Follow-up with primary care and 2 to 3 days forreevaluation. Continue to use your insulin as prescribed Come back to the emergency department if you experience worsening headache, lightheadedness/dizziness, fever, weakness/numbness/tingling of your limbs, double vision or other visual changes, chest pain, shortness of breath, or any other new/worsening/concerning symptoms. * Attachments The following attachments cannot be sent through Care Everywhere. * Acute Kidney Injury (Albanian) * Lightheadedness or Faintness (Albanian) * Chest Pain (Albanian) documented in this encounter Medications at Time of Discharge acetaminophen (TYLENOL) 500 mg tablet Take 1 tablet (500 mg total) by mouth every 8 (eight) hours if needed for mild pain. 90 tablet 1 5 amLODIPine (NORVASC) 5 mg tablet Take 1 tablet (5 mg total) by mouth 1 (one) time each day. BD Ultra-Fine Milady Pen Needle 32 gauge x 5/32 needle USE ONE NEEDLE TWO TIMES A DAY 5 blood-glucose meter (Viva Visionuch Ultra2 Meter) misc 4 (four) times a day (before meals and nightly). Use to monitor blood sugar up to 4 times daily for type 2 diabetes mellitus E11.9 1 each 5 04/22/20 25 blood-glucose sensor (SecretStyle Willow 3 Plus Sensor) deviceIndications: DM (diabetes mellitus), type 2 with neurological complications (CMS/HCC V24, CMS/HCC V28) Box = Kit = EA 5 cholecalciferol (VITAMIN D-3) 50 mcg (2,000 unit) tablet Take 1 tablet (2,000 Units total) by mouth 1 (one) time each day. 5 cyclobenzaprine (FLEXERIL) 10 mg tablet Take 1 tablet (10 mg total) by mouth 3 (three) times a day if needed for muscle spasms for up to 10 days. 15 tablet 5 docusate sodium (COLACE) 100 mg capsule Take 1 capsule (100 mg total) by mouth 1 (one) time each day if needed for constipation. 30 capsule 1 5 docusate sodium (COLACE) 100 mg capsule Take 1 capsule (100 mg total) by mouth every 12 (twelve) hours. 60 capsule 5 03/10/20 25 DULoxetine (Cymbalta) [address] capsule Take 1 capsule (60 mg total) by mouth 1 (one) time each day. Do not crush or chew. 30 each 2 5 01/23/20 26 ibuprofen (ADVIL,MOTRIN) 800 mg tablet Take 1 tablet (800 mg total) by mouth every 8 (eight) hours if needed for mild pain. 90 tablet 1 5 insulin lispro (HumaLOG KwikPen) 100 unit/mL injection pen INJECT UNDER THE SKIN PER SLIDING SCALE UP TO 30 UNITS MAX DAILY lancets (OneTouch UltraSoft 2 Lancet) 30 gauge [...] by mouth 1 (one) time each day. LORazepam (ATIVAN) 1 mg tablet Take 1 tablet (1 mg total) by mouth at bedtime as needed for anxiety or sleep for up to 10 days. Max Daily Amount: 1 mg 10 tablet 5 02/26/20 25 OneTouch Ultra Test test strip Use to monitor blood sugars up to 4 times daily for type 2 diabetes mellitus E11.9 100 each 2 5 01/23/20 26 oxyCODONE (ROXICODONE) 5 mg immediate release tablet Take 1 tablet (5 mg total) by mouth 1 (one) time each day if needed for moderate pain or severe pain. Max Daily Amount: 5 mg 10 tablet 5 psyllium (METAMUCIL) 3.4 gram packet Take 1 packet by mouth 1 (one) time each day. 30 packet 5 02/09/20 26 tamsulosin (FLOMAX) 0.4 mg 24 hr capsule TAKE ONE CAPSULE BY MOUTH EVERY DAY NEEDED DIFFICULTY URINATING 5 traZODone (DESYREL) 150 mg tablet Take 1 tablet (150 mg total) by mouth. at bedtime 5 gabapentin (NEURONTIN) 300 mg capsule Take 2 capsules (600 mg total) by mouth at bedtime. 02/21/20 25 documented as of this encounter Discharge Disposition Disposition Code Departure Means Destination Comment s Home or Self Care documented in this encounter Progress Notes * Yesenia Martell RN - 02/16/2025 4:50 PM EDT Pt states this morning he had sudden onset of dizziness, pt reports feeling like he was going to synopsize but did not. Pt was seen at urgent care and had an ECG, pt states they wanted to send him toED via ambulance d/t tachycardia. * Fan Quiros MD - 02/16/2025 4:36 PM EDTAssociated Order(s): Critical Care Emergency Department Emergency Physician Note Patient: Joshua Cohen Time of Service: 02/16/2025 6:04 PM History of Present Illness (HPI): Chief Complaint Patient presents with ??? Dizziness Near syncope x2 today sent in by urgent care Joshua Cohen is a 34 y.o. male with a history of insulin-dependent diabetes, hypertension, benign prostatic hyperplasia, mood disorder who presents to the emergency department complaining of near syncope twice today. Was trying to unlock the door at his home when he suddenly felt things dimming like he was going to pass out, so he went inside and laid down his symptoms immediately resolved within a few seconds. He later was just standing (had not just got up) and had a similar feeling that immediately resolved upon laying down. For the past week, he has had a couple of episodes of sudden and sharp chest pain in different parts of his chest that lasts a couple seconds at a time and resolved without intervention. Never seem to specifically happen when he is exerting himself, taking deep breath, or eating or drinking. He has had intermittent headaches for several months. He had a headache today that was not different from those that he has been having for several months. He has been having intermittent abdominal pain for several months. He has not had abdominal pain today. He has not had any recent vision changes, numbness, tingling, apart from his chronic neuropathic paresthesias. No fever, chills, cough. No rhinorrhea or congestion but no sore throat or bodyaches. Nodyspnea. No nausea, vomiting, diarrhea. No dysuria, hematuria, urinates, urinary frequency. Last week his left ankle seem swollen 1 day, but not since. For months, he has occasionally had brief painsin his left anterior mid thigh that improved when he massages his thigh. He does not have this today. No recent trauma/surgery/travel/immobilization, hemoptysis, exogenous estrogen, active malignancy, or history of venous thromboembolism. Went to urgent care and was told to go to the emergency department due to tachycardia Current Medications: Gabapentin, ondansetron, duloxetine, ibuprofen, acetaminophen, insulin, amlodipine, lisinopril, tamsulosin, vitamin D Additional history from independent historians: Spouse at bedside, past records Review of External Medical Records: I independently reviewed the patient???s available external past medical records and past encounters. Notably: 02/10/2025 PCP note reviewed PDMP Reviewed by: ELA Leo on 02/10/2025 11:28 AM Medical History[1] Surgical History[2] Family History[3] Social History Socioeconomic History ??? Marital status: Spouse name: None ??? Number of children: None ??? Years of education: None ??? Highest education level: None Occupational History ??? Occupation: unemployed Tobacco Use ??? Smoking status: Former Types: Cigarettes ??? Smokeless tobacco: Former ??? Tobacco comments: Quit 2022 Substance and Sexual Activity ??? Alcohol use: Not Currently ??? Drug use: Yes Types: Marijuana/Cannabis Comment: smokes ??? Sexual activity: None Other Topics Concern ??? None Social History Narrative Lives at home with and kids. Allergies: Allergies[4] Review of Systems (ROS): See HPI for relevant review of systems and/or exceptions/limitations to acquisition thereof. Physical Examination: Visit Vitals BP (!) 132/92 (BP Location: Right arm, Patient Position: Sitting) Pulse 101 Temp 36.8 ??C (98.2 ??F) (Oral) Resp 20 Vital signs and nursing note independently interpreted by myself. Physical Exam Vitals and nursing note reviewed. Constitutional: General: He is not in acute distress. HENT: Head: Normocephalic and atraumatic. Right Ear: External ear normal. Left Ear: External ear normal. Cardiovascular: Rate and Rhythm: Normal rate and regular rhythm. Pulmonary: Effort: Pulmonary effort is normal. No respiratory distress. Abdominal: Tenderness: There is no abdominal tenderness. Musculoskeletal: General: No tenderness or deformity. Cervical back: Normal range of motion. No rigidity. Right lower leg: No edema. Left lower leg: No edema. Neurological: General: No focal deficit present. Mental Status: He is alert and oriented to person, place, and time. Cranial Nerves: No cranial nerve deficit. Gait: Gait normal. Diagnostics: Encounter Date: 02/16/25 ECG 12 lead Result Value Ventricular Rate ECG 102 Atrial Rate 102 P-R Interval 138 QRS Duration 86 Q-T Interval 334 QTc 435 P Wave [place] 46 R [place] 61 T [place] 42 ECG Interpretation Sinus tachycardia Otherwise normal ECG When compared with ECG of 16-FEB-2025 17:00, (unconfirmed) No significant change was found *Note: Due to a large number of results and/or encounters for the requested time period, some results have not been displayed. A complete set of results can be found in Results Review. (If ECG confirmed by author, it was independently interpreted by myself.) Laboratory: Labs studies were ordered and independently interpreted by myself. Labs Reviewed BASIC METABOLIC PANEL - Abnormal Result Value Sodium 136 Potassium 4.9 Chloride 101 CO2 31 Anion Gap 4 Glucose 281 (*) BUN 29 (*) Creatinine 1.66 (*) eGFR 55 (*) BUN/Creatinine Ratio 17.5 Calcium 9.9 MAGNESIUM - Normal Magnesium 2.2 LACTATE, WITH REFLEX - Normal LACTIC ACID 1.1 LIPASE - Normal Lipase 32 CBC AND DIFFERENTIAL Narrative: The following orders were created for panel order CBC and differential. Procedure Abnormality Status --------- ------ CBC auto differential[[id number]] Final result Please view results for these tests on the individual orders. CBC WITH AUTO DIFFERENTIAL WBC 7.9 RBC 5.10 Hemoglobin 14.9 Hematocrit 43.1 MCV 84.5 MCH 29.2 MCHC 34.6 RDW 12.7 Platelets 276 MPV 10.1 NRBC 0.0 NRBC Absolute 0.00 Neutrophils Relative 59.3 Lymphocytes Relative 29.3 Monocytes Relative 9.3 Eosinophils Relative 1.5 Basophils Relative 0.3 Immature Granulocytes Relative 0.3 Neutrophils Absolute 4.66 Lymphocytes Absolute 2.30 Monocytes Absolute 0.73 Eosinophils Absolute 0.12 Basophils Absolute 0.02 Immature Granulocytes Absolute 0.02 TROPONIN I HIGH SENSITIVITY BASIC METABOLIC PANEL Radiography/Imaging: Radiographic studies ordered and independently reviewed by myself. No orders to display Medical Decision Making/ED Course: Vital Signs: I independently reviewed and interpreted the patient???s vital signs, which were notable for tachycardia, diastolic hypertension, otherwise within normal limits and stable. Pulse Oximetry Interpretation: Pulse Oximetry O2 source: room air O2 Sat: 100% Interpretation: Normal per Fan Quiros MD Nursing Notes: I independently reviewed and utilized the nursing notes. Differential Diagnoses: My differential diagnosis considered included, but was not limited to: Dysrhythmia, dehydration, acute kidney injury, electrolyte imbalance, anemia ED Course/Updates: I independently ordered, and the patient was given: Medications lactated Ringer's bolus 1,000 mL (0 mL intravenous Stopped 02/16/252252) ED Course as of 02/16/252324 Mon Feb 16, 2025 1901 Creatinine(!): 1.66 acute kidney injury (LÁZARO) [MY] ED Course User Index [MY] Fan Quiros MD Clinical Impressions as of 02/16/252324 Near syncope LÁZARO (acute kidney injury) (CMS/HCC V24) Hyperglycemia due to diabetes mellitus (CMS/HCC V24, CMS/HCC V28) Chest pain, unspecified type Sinus tachycardia Electrocardiogram (ECG) interpretation, February 16, 2025, 5 PM: Sinus tachycardia, ventricular [id number] bpm normal QTc, no ST-elevation myocardial infarction (STEMI). Performed by Fan Quiros MD. Electrocardiogram (ECG) interpretation, February 16, 2025, 7:44 PM, sinus tachycardia, ventricular 102 bpm, normal QTc, no ST-elevation myocardial infarction (STEMI). Performed by Fan Quiros MD. Normal lactate-unlikely acute tissue ischemia. Normal lipase of unlikely acute pancreatitis. Normalmagnesium. Normal CBC. Hyperglycemia, prerenal azotemia, acute kidney injury, otherwise normal BMP,Nonsuggestive of diabetic ketoacidosis. Diagnostic laboratory and/or imaging tests were ordered, reviewed and independently interpreted by me, as above. Chest pain atypical and if troponin result normal Heart score low risk consistent with low probability of intermediate risk cardiac event. Considered pulmonary embolism-failed pulmonary other criteria secondary to tachycardia, well score 1.5 consistent with low probability, so I will consider additional testing such as D-dimer and CTA chest, probability low and will defer On reevaluation after crystalloid, patient feels much better and heart rate normalized. Ambulatory steady gait, no chest pain difficulty breathing, no lightheadedness or dizziness, no recurrence of near syncope. 11:15pm I endorsed care of the patient to Dr. Rodriguez , who is assuming care of the patient at this time. Pending troponin and repeat BMP. After discussion with patient and spouse, they are comfortable going home, oral rehydration, close outpatient follow-up as long as troponin is normal. CLINICAL IMPRESSION(S): 1. Near syncope 2. LÁZARO (acute kidney injury) (CMS/[facility] V24) 3. Hyperglycemia due to diabetes mellitus (CMS/HCC V24, CMS/HCC V28) 4. Chest pain, unspecified type 5. Sinus tachycardia DISPOSITION: Pending Critical Care Performed by: Fan Quiros MD Authorized by: Fan Quiros MD Critical care provider statement: Critical care time (minutes): 36 Total face to face critical care time (minutes): 15 Critical care time was exclusive of: Separately billable procedures and treating other patients andteaching time Critical care was necessary to treat or prevent imminent or life-threatening deterioration of the following conditions: Cardiac failure, circulatory failure and AREA SUPERVISOR failure or compromise Critical care was time spent personally by me on the following activities: Blood draw for specimens, development of treatment plan with patient or surrogate, evaluation of patient's response to treatment, examination of patient, interpretation of cardiac output measurements, obtaining history from patient or surrogate, ordering and performing treatments and interventions, ordering and review of laboratory studies, ordering and review of radiographic studies, pulse oximetry, re-evaluation of patient's condition and review of old charts Face to face critical care was time spent personally by me on the following activities: Examinationof patient, interpretation of cardiac output measurements, obtaining history from patient or surrogate, pulse oximetry, re- evaluation of patient's condition and evaluation of patient's response to vicente atment I assumed direction of critical care for this patient from another provider in my specialty: no Fan Quiros MD Emergency Medicine Attending Physician (Please note that portions of this note were completed with a voice recognition program. Quite often, unanticipated grammatical, syntax, homophones, and other interpretive errors are inadvertently transcribed by the computer software. Please disregard these errors and excuse any errors that have escaped final proofreading.) Note to patient: It was a pleasure taking care of you today. The Cures Act makes medical notes like this one available to patients in the interest of transparency. However, be advised that this is a medical document. It is intended as physician to physician communication. It is writtenin medical language and may contain abbreviations or verbiage that are unfamiliar. It may appear blunt or direct or even insulting if taken out of the clinical communication context. Medical documents are nor meant to communicate to patients, they are intended to carry relevant information, facts as evident, and the clinical opinion of the practitioner. Fan Quiros MD 02/16/252229 Fan Quiros MD 02/16/252323 Fan Quiros MD 02/16/252323 Fan Quiros MD 02/16/252324 [1] Past Medical History: Diagnosis Date ??? DM (diabetes mellitus), type 2 with neurological complications (CMS/HCC V24, CMS/HCC V28) 04/26/2020 DX:DM (diabetes mellitus), type 2 with neurological complications (HCC) ??? DM (diabetes mellitus), type 2 with renal complications (CMS/HCC V24, CMS/HCC V28) 09/01/2017 DX:DM (diabetes mellitus), type 2 with renal complications (HCC) ??? Essential hypertension, benign DX:Essential hypertension, benign ??? Microalbuminuria 04/26/2020 DX:Microalbuminuria ??? Severe obesity (BMI 35.0-39.9) with comorbidity (CMS/HCC V24, CMS/HCC V28) 04/26/2020 DX:Severe obesity (BMI 35.0-39.9) with comorbidity (HCC) ??? Type 2 diabetes mellitus with microalbuminuria, with long-term current use of insulin (CMS/HCC V24, CMS/HCC V28) 09/01/2017 DX:Type 2 diabetes mellitus with microalbuminuria, with long-term current use of insulin (HCC) [2] Past Surgical History: Procedure Laterality Date ??? OTHER SURGICAL HISTORY PROCEDURE: DENIES PREVIOUS SURGERY [3] Family History Problem Relation Name Age of Onset ??? No Known Problems Mother ??? Hypertension Father ??? Diabetes Brother ??? No Known Problems Brother x3 ??? Autism Daughter ??? Autism Son ??? No Known Problems Maternal Grandmother ??? Diabetes Maternal Grandfather ??? Hypertension Paternal Grandmother ??? No Known Problems Paternal Grandfather [4] No Known Allergies * Alonzo Rodriguez MD - 02/16/2025 4:36 PM EDT Pt is signed out to me by Dr. Quiros. Briefly, the patient is a 34-year-old male who is being evaluated chief complaint of near syncope. At time of signout, repeat electrolytes and troponin are pending. These repeat labs did come back and his kidney function is actually improved compared to prior. I reevaluated him bedside and he states he is feeling much better and would like to be discharged. Will plan for discharge this time and have him follow-up primary care doctor as needed. I performed a substantiative portion of the Medical Decision Making. Alonzo Rodriguez MD 02/17/25 0037 Alonzo Rodriguez MD 02/17/25 0114 documented in this encounter Plan of Treatment Upcoming Encounters Date Type Department Care Team (Late st Contact Info) Description 02/24/2025 10:00 AM EST Office Visit Endocrinology [address] [phone] Ana Luisa West MD [address] [place] [address] 08/18/2025 11:30 AM EDT Office Visit [facility] [address] [phone] Dago Franklin MD [address] [place] [address] documented as of this encounter Procedures Procedure Name Priority Date/Time Associated Diagnosis Comments ECG ANNOTATED 02/17/2025 TROPONIN I HIGH SENSITIVITY STAT 02/16/2025 11:01 PM EDT BASIC METABOLIC PANEL STAT 02/16/2025 11:01 PM EDT ECG 12-LEAD STAT 02/16/2025 7:44 PM EDT LACTATE, WITH REFLEX STAT 02/16/2025 7:27 PM EDT CBC WITH AUTO DIFFERENTIAL STAT 02/16/2025 5:35 PM EDT CBC AND DIFFERENTIAL STAT 02/16/2025 5:35 PM EDT MAGNESIUM STAT 02/16/2025 5:35 PM EDT LIPASE STAT Add-on 02/16/2025 5:35 PM EDT BASIC METABOLIC PANEL STAT 02/16/2025 5:35 PM EDT ECG 12-LEAD STAT 02/16/2025 5:00 PM EDT [facility] 30-74 MINUTES Routine 02/16/2025 4:36 PM EDT documented in this encounter Results * ECG-Annotated (02/17/2025) us Provider Onbase MD ECG ORDERABLES Final Result * (ABNORMAL) Basic metabolic panel (02/16/2025 11:01 PM EDT) Sodium 137 133 - 145 mmol/L LAB CHEMISTRY METHOD 02/17/2025 12:20 AM EDT [facility] Potassium 4.3 3.5 - 5.5 mmol/L LAB CHEMISTRY METHOD 02/17/2025 12:20 AM [facility] Chloride 103 96 - 110 mmol/L LAB CHEMISTRY METHOD 02/17/2025 12:20 AM [facility] CO2 30 21 - 32 mmol/L LAB CHEMISTRY METHOD 02/17/2025 12:20 AM [facility] Anion Gap 4 3 - 11 LAB CHEMISTRY METHOD 02/17/2025 12:20 AM [facility] Glucose 197(H) 70 - 100 mg/dL LAB CHEMISTRY METHOD 02/17/2025 12:20 AM [facility] BUN 29(H) 5 - 25 mg/dL LAB CHEMISTRY METHOD 02/17/2025 12:20 AM [facility] Creatinine 1.29 0.70 - 1.30 mg/dL LAB CHEMISTRY METHOD 02/17/2025 12:20 AM [facility] eGFR 75 >=60 mL/min/1. 73m2 LAB CHEMISTRY METHOD 02/17/2025 12:20 AM [facility] Comment:Calculation based on the Chronic Kidney Disease Epidemiology Collaboration (CKD-EPI) equation refit without adjustment for race. BUN/Creatinine Ratio 22.5 LAB CHEMISTRY METHOD 02/17/2025 12:20 AM [facility] Calcium 9.9 8.5 - 10.5 mg/dL LAB CHEMISTRY METHOD 02/17/2025 12:20 AM [facility] Blood Venous blood specimen / Unknown Venipuncture / Unknown 02/16/2025 11:01 PM EDT 02/16/2025 11:52 PM EDT Fan Quiros MD LAB BLOOD ORDERABLES Final Resul t [facility] [address] [place] [address], * Troponin I high sensitivity (NOW) (02/16/2025 11:01 PM EDT) [facility] High Sensitivity Troponin I 5 <=79 ng/L LAB CHEMISTRY METHOD 02/17/2025 12:18 AM EDT [facility] Blood Venous blood specimen / Unknown Venipuncture / Unknown 02/16/2025 11:01 PM EDT 02/16/2025 11:52 PM EDT Narrative [facility] - 02/17/2025 12:18 AM EDT High levels of biotin in samples may falsely decrease hsTroponin values. Use caution when interpreting hsTroponin results in patients taking biotin who exhibit renal impairment (eGFR <60) or in patients taking more than 20 mg/day of biotin. Fan Quiros MD LAB BLOOD ORDERABLES Final Resul t Performing Organization Address [facility] de Phone Number [facility] [address] [place] [address], [place] [phone] * ECG 12 lead (02/16/2025 7:44 PM EDT) [facility] Ventricular Rate ECG 102 BPM GEMUSE Atrial Rate 102 BPM GEMUSE P-R Interval 138 ms GEMUSE QRS Duration 86 ms GEMUSE Q-T Interval 334 ms GEMUSE QTc 435 ms GEMUSE P Wave [place] 46 degrees GEMUSE R [place] 61 degrees GEMUSE T [place] 42 degrees GEMUSE ECG Interpretation Sinus tachycardia Otherwise normal ECG When compared with ECG of 16-FEB-2025 17:00, No significant change was found Confirmed by MD LACI, ALONZO ([id number]) on 02/17/2025 7:01:53 AM GEMUSE 02/16/2025 7:44 PM EDT 02/17/2025 7:01 AM EDT Fan Quiros MD ECG ORDERABLES Final Result Performing Organization Address [facility] de Phone Number GEMUSE * Lactate, with Reflex (02/16/2025 7:27 PM EDT) [facility] LACTIC ACID 1.1 0.4 - 2.0 mmol/L LAB CHEMISTRY METHOD 02/16/2025 8:17 PM EDT [facility] Blood Venous blood specimen / Unknown Venipuncture / Unknown 02/16/2025 7:27 PM EDT 02/16/2025 7:53 PM EDT us Fan Quiros MD LAB BLOOD ORDERABLES Final Resul t Performing Organization Address City/[facility]/ZIP Co de Phone Number [facility] [address] [place] [address], [place] [phone] * Lipase (02/16/2025 5:35 PM EDT) Lipase 32 13 - 75 unit/L LAB CHEMISTRY METHOD 02/16/2025 7:51 PM EDT [facility] Blood Venous blood specimen / Unknown Venipuncture / Unknown 02/16/2025 5:35 PM EDT 02/16/2025 5:59 PM EDT us Fan Quiros MD LAB BLOOD ORDERABLES Final Resul t Performing Organization Address City/[facility]/ZIP Co de Phone Number [facility] [address] [place] [address], [place] [phone] * CBC auto differential (02/16/2025 5:35 PM EDT) WBC 7.9 4.8 - 10.8 K/mcL LAB HEMETOLOGY METHOD 02/16/2025 6:04 PM EDT [facility] RBC 5.10 4.50 - 5.50 M/mcL LAB HEMETOLOGY METHOD 02/16/2025 6:04 PM EDT [facility] Hemoglobin 14.9 13.5 - 17.5 g/dL LAB HEMETOLOGY METHOD 02/16/2025 6:04 PM EDT [facility] Hematocrit 43.1 42.0 - 54.0 % LAB HEMETOLOGY METHOD 02/16/2025 6:04 PM EDT [facility] MCV 84.5 79.0 - 98.0 FL LAB HEMETOLOGY METHOD 02/16/2025 6:04 PM EDT [facility] MCH 29.2 27.0 - 32.0 pcg LAB HEMETOLOGY METHOD 02/16/2025 6:04 PM EDT [facility] MCHC 34.6 32.0 - 37.0 g/dL LAB HEMETOLOGY METHOD 02/16/2025 6:04 PM EDT [facility] RDW 12.7 11.0 - 15.0 % LAB HEMETOLOGY METHOD 02/16/2025 6:04 PM EDT [facility] Platelets 276 130 - 400 K/mcL LAB [facility]ETOLOGY [facility] MPV 10.1 7.0 - 11.0 FL LAB HEMETOLOGY METHOD 02/16/2025 6:04 PM EDT [facility] NRBC 0.0 <1.0 % LAB [facility]EMETOLOGY METHOD [facility]/16[facility]2025 [facility] NRBC Absolute 0.00 <0.10 K/mcL LAB HEMETOLOGY METHOD 02/16[facility]2025 6[facility] Neutrophils Relative 59.3 % LAB HEMETOLOGY METHOD 02/16/2025 6:04 PM EDT [facility] Lymphocytes Relative 29.3 % LAB HEMETOLOGY METHOD 02/16/2025 6:04 PM EDT [facility] Monocytes Relative 9.3 % LAB HEMETOLOGY METHOD 02/16/2025 6:04 PM EDT [facility] Eosinophils Relative 1.5 % LAB HEMETOLOGY METHOD 02/16/2025 6:04 PM EDT [facility] Basophils Relative 0.3 % LAB HEMETOLOGY METHOD 02/16/2025 6:04 PM EDT [facility] Immature Granulocytes Relative 0.3 % LAB HEMETOLOGY METHOD 02/16/2025 6:04 PM EDT [facility] Neutrophils Absolute 4.66 1.50 - 7.00 K/mcL LAB HEMETOLOGY METHOD 02/16/2025 6:04 PM EDT [facility] Lymphocytes Absolute 2.30 1.00 - 5.00 K/mcL LAB HEMETOLOGY METHOD 02/16/2025 6:04 PM EDT [facility] Monocytes Absolute 0.73 0.20 - 1.00 K/mcL LAB HEMETOLOGY METHOD 02/16/2025 6:04 PM EDT [facility] Eosinophils Absolute 0.12 0.00 - 0.50 K/mcL LAB HEMETOLOGY METHOD 02/16/2025 6:04 PM EDT [facility] Basophils Absolute 0.02 0.00 - 0.20 K/mcL LAB HEMETOLOGY METHOD 02/16/2025 6:04 PM EDT [facility] Immature Granulocytes Absolute 0.02 0.00 - 0.03 K/mcL LAB HEMETOLOGY METHOD 02/16/2025 6:04 PM EDT [facility] Blood Venous blood specimen / Unknown Venipuncture / Unknown 02/16/2025 5:35 PM EDT 02/16/2025 5:59 PM EDT us Fan Quiros MD LAB BLOOD ORDERABLES Final Resul t [facility] [address] [place] [address], * Magnesium (02/16/2025 5:35 PM EDT) Magnesium 2.2 1.9 - 2.6 mg/dL LAB CHEMISTRY METHOD 02/16/2025 6:24 PM EDT [facility] Blood Venous blood specimen / Unknown Venipuncture / Unknown 02/16/2025 5:35 PM EDT 02/16/2025 5:59 PM EDT us Fan Quiros MD LAB BLOOD ORDERABLES Final Resul t [facility] [address] [place] [address], * (ABNORMAL) Basic metabolic panel (02/16/2025 5:35 PM EDT) Sodium 136 133 - 145 mmol/L LAB CHEMISTRY METHOD 02/16/2025 6:24 PM [facility] Potassium 4.9 3.5 - 5.5 mmol/L LAB CHEMISTRY METHOD 02/16/2025 6:24 PM [facility] Chloride 101 96 - 110 mmol/L LAB CHEMISTRY METHOD 02/16/2025 6:24 PM [facility] CO2 31 21 - 32 mmol/L LAB CHEMISTRY METHOD 02/16/2025 6:24 PM [facility] Anion Gap 4 3 - 11 LAB CHEMISTRY METHOD 02/16/2025 6:24 PM [facility] Glucose 281(H) 70 - 100 mg/dL LAB CHEMISTRY METHOD 02/16/2025 6:24 PM [facility] BUN 29(H) 5 - 25 mg/dL LAB CHEMISTRY METHOD 02/16/2025 6:24 PM [facility] Creatinine 1.66(H) 0.70 - 1.30 mg/dL LAB CHEMISTRY METHOD 02/16/2025 6:24 PM [facility] eGFR 55(L) >=60 mL/min/1. 73m2 LAB CHEMISTRY METHOD 02/16/2025 6:24 PM [facility] Comment:Calculation based on the Chronic Kidney Disease Epidemiology Collaboration (CKD-EPI) equation refit without adjustment for race. BUN/Creatinine Ratio 17.5 LAB CHEMISTRY METHOD 02/16/2025 6:24 PM EDT [facility] Calcium 9.9 8.5 - 10.5 mg/dL LAB CHEMISTRY METHOD 02/16/2025 6:24 PM EDT [facility] Blood Venous blood specimen / Unknown Venipuncture / Unknown 02/16/2025 5:35 PM EDT 02/16/2025 5:59 PM EDT Fan Quiros MD LAB BLOOD ORDERABLES Final Resul t [facility] [address] [place] [address], [place] [phone] * ECG 12 lead (02/16/2025 5:00 PM EDT) Ventricular Rate ECG 114 BPM GEMUSE Atrial Rate 114 BPM GEMUSE P-R Interval 138 ms GEMUSE QRS Duration 80 ms GEMUSE Q-T Interval 316 ms GEMUSE QTc 435 ms GEMUSE P Wave [place] 44 degrees GEMUSE R [place] 52 degrees GEMUSE T [place] 36 degrees GEMUSE ECG Interpretation Sinus tachycardia Otherwise normal ECG When compared with ECG of 11-NOV-2015 11:08, Vent. rate has increased BY 44 BPM Confirmed by MD LACI, ALONZO ([id number]) on 02/17/2025 6:58:59 AM GEMUSE 02/16/2025 5:00 PM EDT 02/17/2025 6:58 AM EDT Fan Quiros MD ECG ORDERABLES Final Result GEMUSE * ME CRITICAL CARE 30-74 MINUTES (02/16/2025 4:36 PM EDT) Narrative Fan Quiros MD - 02/16/2025 4:36 PM EDT Fan Quiros MD 02/16/2025 11:25 PM Critical Care Performed by: Fan Quiros MD Authorized by: Fan Quiros MD Critical care provider statement: Critical care time (minutes): 36 Total face to face critical care time (minutes): 15 Critical care time was exclusive of: Separately billable procedures and treating other patients and teaching time Critical care was necessary to treat or prevent imminent or life-threatening deterioration of the following conditions: Cardiac failure, circulatory failure and [employer] failure or compromise Critical care was time spent personally by me on the following activities: Blood draw for specimens, development of treatment plan with patient or surrogate, evaluation of patient's response to treatment, examination of patient, interpretation of cardiac output measurements, obtaining history from patient or surrogate, ordering and performing treatments and interventions, ordering and review of laboratory studies, ordering and review of radiographic studies, pulse oximetry, re-evaluation of patient's condition and review of old charts Face to face critical care was time spent personally by me on the following activities: Examination of patient, interpretation of cardiac output measurements, obtaining history from patient or surrogate, pulse oximetry, re-evaluation of patient's condition and evaluation of patient's response to treatment I assumed direction of critical care for this patient from another provider in my specialty: no Fan Quiros MD IN CLINIC/BEDSIDE ORDERABLES Fin al Result documented in this encounter Visit Diagnoses Diagnosis Near syncope- Primary LÁZARO (acute kidney injury) (CMS/HCC V24) Hyperglycemia due to diabetes mellitus (CMS/HCC V24, CMS/HCC V28) Chest pain, unspecified type Sinus tachycardia Other specified cardiac dysrhythmias documented in this encounter Administered Medications Inactive Administered Medications - up to 3 most recent administrations Medication Order MAR Action Action Date Dose Rate Site cyclobenzaprine (FLEXERIL) tablet 10 mg 10 mg, oral, Once, On Sun02/16/25 at 2339, For 1 dose Given 02/16/2025 11:48 PM EDT 10 mg gabapentin (NEURONTIN) capsule 600 mg 600 mg, oral, Once, On Sun02/16/25 at 2339, For 1 dose Given 02/16/2025 11:48 PM EDT 600 mg lactated Ringer's bolus 1,000 mL 1,000 mL, intravenous, at 2,000 mL/hr, Administer over 0.5 Hours, Once, On Sun02/16/25 at 1843, For 1 dose New Bag 02/16/2025 7:30 PM EDT 1,000 mL 2000 mL/hr documented in this encounter Historical Medications * This list may reflect changes made after this encounter. gabapentin (NEURONTIN) 300 mg capsule Take 2 capsules (600 mg total) by mouth at bedtime. 01/24/2025 02/20/2025 added in this encounter Active and Recently Administered Medications Times are shown in EDT. Scheduled Medication Order 02/15/2025 02/16/2025 02/17/2025 cyclobenzaprine (FLEXERIL) tablet 10 mg (COMPLETED) 10 mg, oral, Once, On Sun02/16/25 at 2339, For 1 dose 2348 (Given - Provider: Joel Kang, RN) gabapentin (NEURONTIN) capsule 600 mg (COMPLETED) 600 mg, oral, Once, On Sun02/16/25 at 2339, For 1 dose 2348 (Given - Provider: Joel Kang, RN) lactated Ringer's bolus 1,000 mL (COMPLETED) 1,000 mL, intravenous, at 2,000 mL/hr, Administer over 0.5 Hours, Once, On Sun02/16/25 at 1843, For 1 dose 1930 (New Bag - Provider: Faiza Sim, MAISHA)2253 (Stopped - Provider: Cooper Kang, MAISHA) documented in this encounter Additional Health Concerns Assessment Noted Time PHQ-9 Depression Total Score: 27 025 1:27 PM EDT documented as of this encounter Care Teams Delivery Director Relationship Specialty Start Date End Date Dago Franklin MD [address] [place] [address] PCP - General Internal Medicine 12/26/24 documented as of this encounter
--- NOTE | ~2025-02-21 | CT_ITS ---
CLINICAL HISTORY: bilateral flank pain with lumbar tenderness CT abdomen and pelvis without contrast Comparison: None provided Findings: No consolidation or effusion. The liver, gallbladder, spleen, pancreas, kidneys and adrenal glands are normal in appearance. No hydronephrosis. No renal or ureteral stones. No bowel obstruction, pneumoperitoneum, or pneumatosis. Moderate volume of fecal loading throughout the colon. Pelvic contents unremarkable. Normal appendix. Incidentally noted calcification of the vas deferens. No significant degenerative change of the lumbar spine. No acute fracture deformity. SI joints are symmetric. IMPRESSION: No acute findings. Incidentally noted calcification of the vas deferens, a nonspecific finding that can be associated with diabetes. This document has been electronically signed by: Fabian Hair MD on 02/21/2025 23:49:04
--- NOTE | ~2025-02-21 | CT_ITS ---
CLINICAL HISTORY: thoracic pain CT chest without contrast Comparison: CR/SR - XR CHEST 2 VIEWS - 01/23/25 15:51 EDT CR/SR - XR THORACIC SPINE 2 VIEWS - 01/01/25 08:04 EDT Findings: The heart is normal size. There is a small amount of remnant thymus in the anterior mediastinum. The lungs are clear. No pleural effusion or pneumothorax. The upper abdomen is unremarkable. No acute fractures. No significant degenerative change of the thoracic spine. IMPRESSION: 1. Unremarkable chest CT. This document has been electronically signed by: Fabian Hair MD on 02/21/2025 23:47:41
[2025-02-21 20:27] VITALS: BP 169/99; PULSE 109; RESP 18; TEMP 36.5; O2SAT 98; BMI 33.2
--- NOTE | 2025-02-21 20:27 | ED.BACK ---
HPI - Back Pain/Injury General Chief Complaint: Back Pain/Injury Stated Complaint: spine pain Time Seen by Provider: 02/21/25 20:59 Source: patient Mode of arrival: ambulatory Limitations: no limitations History of Present Illness ED Provider: Dr. Sandoval HPI Narrative: 34-year-old male presented hospital today for thoracic spine tenderness that radiates down to his low back. Patient stated that this is similar to the time where he exacerbated in the past. Denies any trauma. Patient stated that it feels like a burning sensation coming off his spine. Patient has been intermittently taking oxycodone for his pain. He has been on gabapentin for this pain. He stated that he is currently being evaluated outpatient however things are very slow in the workup. Denies any fever denies any neck pain. Denies any saddle paresthesia denies any bowel incontinence. Denies any urinary retention. Related Data Previous Rx's ?Medication ?Instructions ?Recorded capsaicin 0.035 % topical patch 1 patch topical QID PRN pain 7 12/24/24 days #10 ea oxycodone 5 mg tablet 5 mg PO Q6H PRN pain #10 tabs 12/24/24 prednisone 20 mg tablet 40 mg (2 x 20 mg) PO DAILY 4 days 12/24/24 #8 tabs cyclobenzaprine 5 mg tablet 5 mg PO TID PRN muscle spasm #15 01/01/25 tabs ketorolac 10 mg tablet 10 mg PO Q8H PRN pain #15 tabs 01/01/25 acetaminophen 500 mg tablet 1,000 mg (2 x 500 mg) PO Q8H 15 01/06/25 (Tylenol Extra Strength) days #90 tabs ibuprofen 400 mg tablet 400 mg PO Q8H 14 days #42 tabs 01/06/25 lidocaine 5 % topical patch 1 patch topical DAILY #15 ea 01/06/25 methylprednisolone 4 mg tablets in 4 mg PO DAILY #21 ea 01/06/25 a dose pack (Medrol (Fadi)) oxycodone 5 mg capsule 5 mg PO Q8H PRN pain 4 days #14 01/06/25 caps gabapentin 300 mg capsule See Rx Instructions .Route 01/23/25 .COMPLEX #60 caps ondansetron 4 mg disintegrating 4 mg PO Q8H PRN nausea and 01/23/25 tablet vomiting #10 tabs acetaminophen 500 mg tablet 1,000 mg (2 x 500 mg) PO Q8H 10 02/21/25 (Tylenol Extra Strength) days #60 tabs diazepam 5 mg tablet (Valium) 5 mg PO TID PRN muscle spasm 3 02/21/25 days #14 tabs lidocaine 5 % topical patch 1 patch topical DAILY #15 ea 02/21/25 prednisone 20 mg tablet 20 mg PO DAILY 7 days #7 tabs 02/22/25 Allergies Allergy/AdvReac Type Severity Reaction Status Date / Time No Known Allergies Allergy Verified 02/21/25 20:28 Review of Systems Review of Systems: Pertinent review of systems as mentioned in HPI. All other system otherwise negative. [facility] Past Medical History [facility] Narrative: Chronic back pain Social History Social History Substance Use Type: Marijuana Advance Directives: No Advance Directives Information Provided: Yes Do you have a plan to hurt others: No Plan Physical Exam Exam: Exam: General: Pleasant, no distress, interacting appropriately Head: Normacephalic, atraumatic ENT: oral mucosa moist, neck supple, no tracheal deviation Cardiovascular: regular rate, regular rhythm, no murmurs, rubbing, gallops Respiratory: CTAB, no wheeze, rales, rhonchi Gastrointestinal: Soft, non distended, non tender, non guarding Extremities: Thoracic spine tenderness on palpation of lumbar spine tenderness on palpation. No paraspinal tenderness on palpation. Range of motion intact. No saddle paresthesia Neurological: Awake and alert, no facial droop noted Skin: Warm and dry Psychiatric: Appropriate mood and thoughts Vital Signs: Vital Signs: Last Vital Signs Temp 97.7 F 02/21/25 20:27 Pulse 109 H 02/21/25 20:27 Resp 18 02/21/25 20:27 BP 169/99 H 02/21/25 20:27 Pulse Ox 98 02/21/25 20:27 O2 Del Method Nasal Cannula 02/21/25 20:27 BMI result Body Mass Index 33.2 Course Course Course Narrative: This is a Rapid Medical Exam performed in triage by [employer] PA-C. Full HPI, ROS and PE to be performed by primary ED provider. 34 yo M w/no sig PMHx presenting to the ED c/o entire back pain radiating down b/l LE since last night. Has been taking Flexeril & Tylenol at home w/o relief. Denies injury/fall, hematuria, dysuria, retention/incontinence, fever PE: ambulating with antalgic gait, diffuse MSK/paraspinal ttp. no midline spinous ttp. denies Hx IVDA Plan: Pain control Medications Administered Discontinued Medications Generic Name Dose Route Start Last Admin Trade Name Víctor PRN Reason Stop Dose Admin Acetaminophen 975 mg 02/21/25 21:30 02/21/25 21:55 Acetaminophen 325 Mg Tablet PO 02/21/25 21:31 975 mg ONCE ONE Administration Diazepam 2.5 mg 02/21/25 23:58 02/22/25 00:17 Diazepam 2 Mg Tablet PO 02/21/25 23:59 2.5 mg ONCE ONE Administration Ibuprofen 400 mg 02/21/25 21:30 02/21/25 21:55 Ibuprofen 400 Mg Tablet PO 02/21/25 21:31 400 mg ONCE ONE Administration Oxycodone HCl 5 mg 02/21/25 21:30 02/21/25 21:56 Oxycodone Hcl Immed Release 5 Mg Tablet PO 02/21/25 21:31 5 mg ONCE ONE Administration Medical Decision Making Medical Decision Making MDM Narrative: 34-year-old male presented to the hospital today for couple of weeks of thoracic spine tenderness and lumbar spine tenderness. Patient denies any traumatic injury. I think this is exacerbation of his chronic back pain. Patient has no red flag symptoms for back pain.. Patient stated the last time this happened, oxycodone helps. It appears that patient has had normal spinal x-ray performed previous visit. We will plan to the broaden the patient's workup given the persistence of his back pain. We will obtain a CT thorax and CT abdomen and pelvis. We will evaluate for any other occult cause of his back pain including metastatic lesions. CT imaging was negative for anything acute at this time. We will plan to discharge patient with p.r.n. Valium to take for his back pain. Differential Diagnosis Differential Diagnoses: The differential diagnosis associated with the presentation includes Back pain, metastatic lesions, lumbar radiculopathy, spinal cord compression Independent Interpretation I performed an independent interpretation of an: CT Scan Radiology Impression Discussion of test interpretation with radiology: I have reviewed the radiologist's reading. Discharge Plan Discharge Clinical Impression: Thoracic back pain Qualifiers: Chronicity: chronic Back pain laterality: unspecified Qualified Code(s): M54.6 - Pain in thoracic spine Strain of lumbar region Qualifiers: Encounter type: sequela Qualified Code(s): S39.012S - Strain of muscle, fascia and tendon of lower back, sequela Patient Disposition: Home, Self-Care Instructions: Back Pain (ED) Additional Instructions: To pharmacy, Paper script was used as our controlled substance software is down for maintenance. Feel free to call with any questions. Prescriptions: New diazepam [Valium] 5 mg tablet 5 mg PO TID PRN (Reason: muscle spasm) 3 Days Qty: 14 0RF acetaminophen [Tylenol Extra Strength] 500 mg tablet 1,000 mg PO Q8H 10 Days Qty: 60 0RF lidocaine 5 % adhesive patch,medicated 1 patch topical DAILY Qty: 15 0RF Rx Instructions: leave on most painful area for up to 12 hrs prednisone 20 mg tablet 20 mg PO DAILY 7 Days Qty: 7 0RF No Action cyclobenzaprine 5 mg tablet 5 mg PO TID PRN (Reason: muscle spasm) Qty: 15 0RF ketorolac 10 mg tablet 10 mg PO Q8H PRN (Reason: pain) Qty: 15 0RF Rx Instructions: patient was given 30mg IM toradol in the ED for inflammation and pain of mid back prednisone 20 mg tablet 40 mg PO DAILY 4 Days Qty: 8 0RF capsaicin 0.035 % adhesive patch,medicated 1 patch topical QID PRN (Reason: pain) 7 Days Qty: 10 0RF oxycodone 5 mg tablet 5 mg PO Q6H PRN (Reason: pain) Qty: 10 0RF Rx Instructions: Partial Fill upon patient request. oxycodone 5 mg capsule 5 mg PO Q8H PRN (Reason: pain) 4 Days Qty: 14 0RF Rx Instructions: Partial Fill upon patient request. acetaminophen [Tylenol Extra Strength] 500 mg tablet 1,000 mg PO Q8H 15 Days Qty: 90 0RF ibuprofen 400 mg tablet 400 mg PO Q8H 14 Days Qty: 42 0RF lidocaine 5 % adhesive patch,medicated 1 patch topical DAILY Qty: 15 0RF Rx Instructions: leave on most painful area for up to 12 hrs methylprednisolone [Medrol (Fadi)] 4 mg tablets,dose pack 4 mg PO DAILY Qty: 21 0RF gabapentin 300 mg capsule See Rx Instructions .ROUTE .COMPLEX Qty: 60 0RF Rx Instructions: On days 1-4, take 300 mg in the morning, 600 mg in the afternoon, and 600 mg at bedtime. On days 5-8, take 600 mg in the morning and 600 mg at bedtime. On days 9-12, take 300 mg in the morning and 600 mg at bedtime. On days 13-16, take 300 mg in the morning and 300 mg at bedtime. On days 17-20, take 300 mg once daily. ondansetron 4 mg tablet,disintegrating 4 mg PO Q8H PRN (Reason: nausea and vomiting) Qty: 10 0RF Referrals: Physical Therapy - [facility] [Outside] Clinical Impression: Strain of lumbar region; Thoracic back pain Discharge Date/Time: 02/22/25 00:20 Print Language: Spanish
--- OUTSIDE RECORDS SUMMARY | 2025-02-21 20:55 | XMS_ITS | Clinical Summary ---
Author Organization [facility] [address] [place] [address] [place] [phone] Phone Care Team Providers Care Acidizer Name Role Phone Dago Franklin MD Primary Care Provider Allergies No known active allergies Medications amLODIPine (NORVASC) 5 mg tablet Take 1 tablet (5 mg total) by mouth 1 (one) time each day. Active cholecalciferol (VITAMIN D-3) 50 mcg (2,000 unit) tablet Take 1 tablet (2,000 Units total) by mouth 1 (one) time each day. 10/26/19 25 Active Lantus Solostar U-100 Insulin 100 unit/mL [...] mouth 1 (one) time each day. Active BD Ultra-Fine Milady Pen Needle 32 gauge x 5/32 needle USE ONE NEEDLE TWO TIMES A DAY 12/30/19 25 Active tamsulosin (FLOMAX) 0.4 mg 24 hr capsule TAKE ONE CAPSULE BY MOUTH EVERY DAY NEEDED DIFFICULTY URINATING 10/26/19 25 Active traZODone (DESYREL) 150 mg tablet Take 1 tablet (150 mg total) by mouth. at bedtime 12/30/19 25 Active DULoxetine (Cymbalta) [address] [...] 2 with neurological complications ([facility] V24, [facility] V28) Box = Kit = EA 01/23/20 25 Active docusate sodium (COLACE) 100 mg capsule Take 1 capsule (100 mg total) by mouth 1 (one) time each day if needed for constipation. 30 capsule 1 02/06/20 25 Active ibuprofen (ADVIL,MOTRIN) 800 mg tablet Take 1 tablet (800 mg total) by mouth every 8 (eight) hours if needed for mild pain. 90 tablet 1 02/06/20 25 Active acetaminophen (TYLENOL) 500 mg tablet Take 1 tablet (500 mg total) by mouth every 8 (eight) hours if needed for mild pain. 90 tablet 1 02/06/20 25 Active cyclobenzaprine (FLEXERIL) 10 mg tablet Take 1 tablet (10 mg total) by mouth 3 (three) times a day if needed for muscle spasms for up to 10 days. 15 tablet 02/09/20 25 Active docusate sodium (COLACE) 100 mg capsule Take 1 capsule (100 mg total) by mouth every 12 (twelve) hours. 60 capsule 02/09/20 25 025 Active psyllium (METAMUCIL) 3.4 gram packet Take 1 packet by mouth 1 (one) time each day. 30 packet 02/09/20 Active oxyCODONE (ROXICODONE) 5 mg immediate release tablet Take 1 tablet (5 mg total) by mouth 1 (one) time each day if needed for moderate pain or severe pain. Max Daily Amount: 5 mg 10 tablet 02/11/20 Active LORazepam (ATIVAN) 1 mg tablet Take 1 tablet (1 mg total) by mouth at bedtime as needed for anxiety or sleep for up to 10 days. Max Daily Amount: 1 mg 10 tablet 02/16/20 Active gabapentin (NEURONTIN) 300 mg capsule Take 2 capsules (600 mg total) by mouth at bedtime. 180 capsule 02/21/20 Active docusate sodium (COLACE) 100 mg capsule Take 1 capsule (100 mg total) by mouth. 10/26/19 Discontin ued(Reord er) ibuprofen (ADVIL,MOTRIN) 800 mg tablet Take 1 tablet (800 mg total) by mouth. 04/29/19 Discontin ued(Reord er) oxyCODONE (ROXICODONE) 5 mg immediate release tablet Take 1 tablet (5 mg total) by mouth every 6 (six) hours if needed. for pain Max Daily Amount: 20 mg 12/25/19 Discontin ued(Thera py completed ) methocarbamoL (ROBAXIN) 500 mg tablet Take 1 tablet (500 mg total) by mouth 2 (two) times a day for 7 days. 14 each 01/17/20 Discontin ued(Thera py completed ) tiZANidine (Zanaflex) 4 mg capsuleIndicatio ns:Acute right-sided low back pain with right-sided sciatica,Lumbar radiculopathy Take 1 capsule (4 mg total) by mouth 3 (three) times a day. 90 each 01/28/20 025 Discontin ued(Enter ed in Error) tiZANidine (ZANAFLEX) 4 mg tablet Take 1 tablet (4 mg total) by mouth 3 (three) times a day if needed for muscle spasms. 90 tablet 02/04/20 25 025 Discontin ued(Thera py completed ) acetaminophen (TYLENOL) 500 mg tablet TAKE TWO TABLETS BY MOUTH EVERY 8 HOURS FOR 15 DAYS 01/07/20 025 Discontin ued(Reord er) oxyCODONE (ROXICODONE) 5 mg immediate release tablet Take 1 tablet (5 mg total) by mouth every 6 (six) hours if needed for moderate pain or severe pain. Max Daily Amount: 20 mg 7 tablet 02/09/20 025 Discontin ued(Reord er) ketorolac (TORADOL) 10 mg tablet Take 1 tablet (10 mg total) by mouth every 6 (six) hours if needed for moderate pain for up to 5 days. 20 tablet 02/09/20 025 gabapentin (NEURONTIN) 300 mg capsule Take 2 capsules (600 mg total) by mouth at bedtime. 01/25/20 025 Discontin ued(Reord er) Active Problems Problem Noted Date Diagnosed Date Severe obesity ([facility] V24, [facility] V28) 2024 Essential hypertension, benign 08/10/2021 DM (diabetes mellitus), type 2 with neurological complications ([facility] V24, [facility] V28) 04/26/2020 Microalbuminuria 04/26/2020 Bilateral carpal tunnel syndrome 06/17/2018 DM (diabetes mellitus), type 2 with renal complications ([facility] V24, [facility] V28) 09/01/2017 Encounters Date Type Department Care Team Description 02/16/2025 6:04 PM EDT - 02/17/2025 1:57 AM EDT Emergency [facility] Emergency [address] [place] [phone] Fan Quiros MD Ziebro, John, MD Near syncope (Primary Dx); LÁZARO (acute kidney injury) ([facility] V24); Hyperglycemia due to diabetes mellitus ([facility] V24, [facility] V28); Chest pain, unspecified type; Sinus tachycardia Discharge Disposition: Home or Self Care 02/14/2025 10:39 PM EDT - 02/15/2025 1:55 AM EDT Emergency [facility] Emergency [address] [place] [phone] Kris Vick MD Acute urinary retention (Primary Dx); Anxiety; Benign prostatic hyperplasia with urinary retention Discharge Disposition: Home or Self Care 02/10/2025 11:15 AM EDT Office Visit Adult [address] [phone] Thao Nicholson PA Lumbar radiculopathy (Primary Dx); Primary hypertension 02/08/2025 2:11 AM EDT - 02/08/2025 3:50 AM EDT Emergency [facility] Emergency [address] [place] [phone] Neuropathy (Primary Dx) Discharge Disposition: Home or Self Care 01/29/2025 Telephone Adult [address] [phone] Dago Franklin MD 01/27/2025 11:00 AM EDT Office Visit Adult [address] [phone] Thao Nicholson PA Acute right-sided low back pain with right-sided sciatica (Primary Dx); Lumbar radiculopathy; Type 2 diabetes mellitus with microalbuminuria (CMS/HCC V24, CMS/HCC V28); Primary hypertension; Vitamin D deficiency; Depressive disorder 01/26/2025 Results Follow-Up [address] [phone] Thao Nicholson PA 01/23/2025 6:25 AM EDT - 01/23/2025 7:46 AM EDT Emergency [facility] Emergency [address] [place] [phone] Danielle Dent MD Discharge Disposition: Home or Self Care 01/22/2025 9:00 AM EDT Consult [address] [phone] Ana Luisa West MD DM (diabetes mellitus), type 2 with neurological complications (CMS/HCC V24, CMS/HCC V28) (Primary Dx) 01/16/2025 Telephone Adult Medicine [address] [phone] Dago Franklin MD 01/15/2025 11:53 PM EDT - 01/16/2025 3:41 AM EDT Emergency [facility] Emergency [address] [place] [phone] Odin Dockery MD Flank pain (Primary Dx) Discharge Disposition: Home or Self Care 01/15/2025 Telephone Adult Medicine [address] [phone] Dago Franklin MD 01/01/2025 1:30 PM EDT Office Visit Adult [address] [phone] Thao Nicholson PA Encounter to establish care (Primary Dx); Need for hepatitis C screening test; Encounter for screening for HIV; Lumbar radiculopathy; Acute right-sided low back pain with right-sided sciatica; DM (diabetes mellitus), type 2 with neurological complications (CMS/HCC V24, [facility] V28); Vitamin D deficiency 12/26/2024 Telephone Adult Medicine [address] [phone] Dago Franklin MD from Last 3 Months [...] of insulin (CMS/HCC V24, [facility] V28) 09/01/2017 DX:Type 2 diabetes mellitus with microalbuminuria, with long-term current use of insulin (HCC) DM (diabetes mellitus), type 2 with renal complications ([facility] V24, [facility] V28) 09/01/2017 DX:DM (diabetes mellitus), t ype 2 with renal complications (HCC) DM (diabetes mellitus), type 2 with neurological complications ([facility] V24, [facility] V28) 04/26/2020 DX:DM (diabetes mellitus), t ype 2 with neurological complications ([facility]) Microalbuminuria 04/26/2020 DX:Microalbumin uria Severe obesity (BMI 35.0-39. 9) with comorbidity ([facility] V24, [facility] V28) 04/26/2020 DX:Severe obesi ty (BMI 35.0- 39.9) with comorbidity ([facility]) Family History Medical History Relation Name Comments [...] for your loved ones. For example, child protective investigator or elderly care for an older adult? [...] Mass Index 33.09 02/16/2025 4:53 PM EDT Plan of Treatment Upcoming Encounters Date Type Department Care Team (Late st Contact Info) Description 02/24/2025 10:00 AM EST Office Visit Endocrinology [address] [phone] Ana Luisa West MD [address] [place] [address] 08/18/2025 11:30 AM EDT Office Visit Adult Medicine [address] [phone] Dago Franklin MD [address] [place] [phone] Health Maintenance Due Date Last Done Comments Diabetes: Annual Retina Eye Exam 2000 Hepatitis B Vaccines (1 of 3 - 19+ 3-dose series) 2009 HPV Vaccines (1 - 3-dose SCDM series) 2017 DTaP,Tdap,and Td Vaccines (3 - Td or Tdap) 10/24/2019 10/23/2009, 03/21/2004 COVID-19 Vaccine ( - season) 2024 Diabetes: Blood Sugar Control Test (HGBA1C) 07/27/2025 01/26/2025 Influenza Vaccine (#1) 2025 Postp oned from 12/22/2024 (Patient Refused) Diabetes: Annual Foot Exam 01/01/2026 01/01/2025 Social Influencers of Health Screening 01/01/2026 01/01/2025 Diabetes: Annual Urine Albumin-Creatinine Ratio (uACR) 01/26/2026 01/26/2025, 09/28/2021 Diabetes: Annual GFR (Glomerular Filtration Rate) 02/16/2026 02/16/2025, 02/16/2025, 01/26/2025, Additional history exists Hypertension/CHF/CAD Annual BMP Blood Test 02/16/2026 02/16/2025, 02/16/2025, 01/26/2025, Additional history exists Cholesterol Screening (Lipid Panel) 01/26/2030 01/26/2025 RSV Immunization Adult Patients (1 - 1-dose 75+ series) 2065 Pneumococcal Vaccine: Pediatrics (0 to 5 Years) and At-Risk Patients (6 to 49 Years) Completed 08/10/2021, 11/19/2009 Depression Screening Completed 01/01/2025 HIV Screening Completed 01/26/2025 Hepatitis C Screening Completed 01/26/2025 HIB Vaccines Aged Out No longer eligi [...] 20 months Aged Out No longer eligible based on patient's age to complete this topic Varicella Vaccines Aged Out No longer eligible based on patient's age to complete this topic Procedures Procedure Name Priority Date/Time Associated Diagnosis Comments ECG ANNOTATED 02/17/2025 BASIC METABOLIC PANEL STAT 02/16/2025 11:01 PM EDT TROPONIN I HIGH SENSITIVITY STAT 02/16/2025 11:01 PM EDT ECG 12-LEAD STAT 02/16/2025 7:44 PM EDT LACTATE, WITH REFLEX STAT 02/16/2025 7:27 PM EDT LIPASE STAT Add-on 02/16/2025 5:35 PM EDT CBC WITH AUTO DIFFERENTIAL STAT 02/16/2025 5:35 PM EDT MAGNESIUM STAT 02/16/2025 5:35 PM EDT BASIC METABOLIC PANEL STAT 02/16/2025 5:35 PM EDT CBC AND DIFFERENTIAL STAT 02/16/2025 5:35 PM EDT ECG 12-LEAD STAT 02/16/2025 5:00 PM EDT NM CRITICAL CARE 30-74 MINUTES Routine 02/16/2025 4:36 PM EDT MICROALBUMIN CREATININE URINE RATIO Routine 01/26/2025 8:57 AM EDT DM (diabetes mellitus), type 2 with neurological complications (CMS/HCC V24, CMS/HCC V28) COMPREHENSIVE METABOLIC PANEL Routine 01/26/2025 8:54 AM EDT DM (diabetes mellitus), type 2 with neurological complications (CMS/HCC V24, CMS/HCC V28) HEMOGLOBIN A1C Routine 01/26/2025 8:54 AM EDT DM (diabetes mellitus), type 2 with neurological complications (CMS/HCC V24, CMS/HCC V28) LIPID PANEL WITH REFLEX TO DIRECT LDL Routine 01/26/2025 8:54 AM EDT DM (diabetes mellitus), type 2 with neurological complications (CMS/HCC V24, CMS/HCC V28) VITAMIN D 25 HYDROXY Routine 01/26/2025 8:54 AM EDT Vitamin D deficiency HIV 1, 2 ANTIBODY, P24 ANTIGEN WITH REFLEX TO DIFFERENTIATION Routine 01/26/2025 8:54 AM EDT Encounter for screening for HIV HEPATITIS C ANTIBODY Routine 01/26/2025 8:54 AM EDT Need for hepatitis C screening test EXTERNAL XRAY REPORT 01/23/2025 EXTERNAL XRAY REPORT 01/23/2025 CT ABDOMEN PELVIS W CONTRAST STAT 01/16/2025 [...] EDT from Last 3 Months Results * ECG-Annotated (02/17/2025) Provider Onbase ECG ORDERABLES Final Result * Troponin I high sensitivity (NOW) (02/16/2025 11:01 PM EDT) High Sensitivity Troponin I 5 <=79 ng/L LAB CHEMISTRY METHOD 02/17/2025 12:18 AM EDT [facility] Blood Venous blood specimen / Unknown Venipuncture / Unknown 02/16/2025 11:01 PM EDT 02/16/2025 11:52 PM EDT Narrative [facility] - 02/17/2025 12:18 AM EDT High levels of biotin in samples may falsely decrease hsTroponin values. Use caution when interpreting hsTroponin results in patients taking biotin who exhibit renal impairment (eGFR <60) or in patients taking more than 20 mg/day of biotin. Fan Quiros MD LAB BLOOD ORDERABLES Final Resul t [facility] [address] [place] [address], * (ABNORMAL) Basic metabolic panel (02/16/2025 11:01 PM EDT) Only the most recent of2 resultswithin the time period is included. Sodium 137 133 - 145 mmol/L LAB CHEMISTRY METHOD 02/17/2025 12:20 AM [facility] Potassium 4.3 3.5 - 5.5 mmol/L LAB CHEMISTRY METHOD 02/17/2025 12:20 AM [facility] Chloride 103 96 - 110 mmol/L LAB CHEMISTRY METHOD 02/17/2025 12:20 AM [facility] CO2 30 21 - 32 mmol/L LAB CHEMISTRY METHOD 02/17/2025 12:20 AM [facility] Anion Gap 4 3 - 11 LAB CHEMISTRY METHOD 02/17/2025 12:20 AM [facility] Glucose 197(H) 70 - 100 mg/dL LAB CHEMISTRY METHOD 02/17/2025 12:20 AM [facility] BUN 29(H) 5 - 25 mg/dL LAB CHEMISTRY METHOD 02/17/2025 12:20 AM [facility] Creatinine 1.29 0.70 - 1.30 mg/dL LAB CHEMISTRY METHOD 02/17/2025 12:20 AM [facility] eGFR 75 >=60 mL/min/1. 73m2 LAB CHEMISTRY METHOD 02/17/2025 12:20 AM [facility] Comment:Calculation based on the Chronic Kidney Disease Epidemiology Collaboration (CKD-EPI) equation refit without adjustment for race. BUN/Creatinine Ratio 22.5 LAB CHEMISTRY METHOD 02/17/2025 12:20 AM [facility] Calcium 9.9 8.5 - 10.5 mg/dL LAB CHEMISTRY METHOD 02/17/2025 12:20 AM [facility] Blood Venous blood specimen / Unknown Venipuncture / Unknown 02/16/2025 11:01 PM EDT 02/16/2025 11:52 PM EDT us Fan Quiros MD LAB BLOOD ORDERABLES Final Resul t Performing Organization Address City/[facility]/ZIP Co de Phone Number [facility] [address] [place] [address], [place] [phone] * ECG 12 lead (02/16/2025 7:44 PM EDT) Only the most recent of2 resultswithin the time period is included. Pathologist [facility] [place] Ventricular Rate ECG 102 BPM GEMUSE Atrial Rate 102 BPM GEMUSE P-R Interval 138 ms GEMUSE QRS Duration 86 ms GEMUSE Q-T Interval 334 ms GEMUSE QTc 435 ms GEMUSE P Wave Buck[place] 46 degrees GEMUSE R [place] 61 degrees GEMUSE T [place] 42 degrees GEMUSE ECG Interpretation Sinus tachycardia Otherwise normal ECG When compared with ECG of 16-FEB-2025 17:00, No significant change was found Confirmed by MD AGUERO JOHN ([id number]) on 02/17/2025 7:01:53 AM GEMUSE 02/16/2025 7:44 PM EDT 02/17/2025 7:01 AM EDT us Fan Quiros MD ECG ORDERABLES Final Result Performing Organization Address [facility] de Phone Number GEMUSE * Lactate, with Reflex (02/16/2025 7:27 PM EDT) [facility] LACTIC ACID 1.1 0.4 - 2.0 mmol/L LAB CHEMISTRY METHOD 02/16/2025 8:17 PM EDT [facility] Blood Venous blood specimen / Unknown Venipuncture / Unknown 02/16/2025 7:27 PM EDT 02/16/2025 7:53 PM EDT us Fan Quiros MD LAB BLOOD ORDERABLES Final Resul t Performing Organization Address City/[facility]/ZIP Co de Phone Number [facility] [address] [place] [address], [place] [phone] * CBC auto differential (02/16/2025 5:35 PM EDT) Only the most recent of2 resultswithin the time period is included. [facility] Signature WBC 7.9 4.8 - 10.8 K/mcL LAB HEMETOLOGY METHOD 02/16/2025 6:04 PM EDT [facility] RBC 5.10 4.50 - 5.50 M/mcL LAB HEMETOLOGY METHOD 02/16/2025 6:04 PM EDT [facility] Hemoglobin 14.9 13.5 - 17.5 g/dL LAB HEMETOLOGY METHOD 02/16/2025 6:04 PM [facility] Hematocrit 43.1 42.0 - 54.0 % LAB HEMETOLOGY METHOD 02/16/2025 6:04 PM [facility] MCV 84.5 79.0 - 98.0 FL LAB HEMETOLOGY METHOD 02/16/2025 6:04 PM EDT [facility] MCH 29.2 27.0 - 32.0 pcg LAB HEMETOLOGY METHOD 02/16/2025 6:04 PM [facility] MCHC 34.6 32.0 - 37.0 g/dL LAB HEMETOLOGY METHOD 02/16/2025 6:04 PM [facility] RDW 12.7 11.0 - 15.0 % LAB HEMETOLOGY METHOD 02/16/2025 6:04 PM EDT [facility] Platelets 276 130 - 400 K/mcL LAB HEMETOLOGY METHOD 02/16/2025 6:04 PM EDT [facility] MPV 10.1 7.0 - 11.0 FL LAB HEMETOLOGY METHOD 02/16/2025 6:04 PM [facility] NRBC 0.0 <1.0 % LAB HEMETOLOGY METHOD 02/16/2025 6:04 PM [facility] NRBC Absolute 0.00 <0.10 K/mcL LAB HEMETOLOGY METHOD 02/16/2025 6:04 PM EDT [facility] Neutrophils Relative 59.3 % LAB HEMETOLOGY METHOD 02/16/2025 6:04 PM [facility] Lymphocytes Relative 29.3 % LAB HEMETOLOGY METHOD 02/16/2025 6:04 PM [facility] Monocytes Relative 9.3 % LAB HEMETOLOGY METHOD 02/16/2025 6:04 PM [facility] Eosinophils Relative 1.5 % LAB HEMETOLOGY METHOD 02/16/2025 6:04 PM [facility] Basophils Relative 0.3 % LAB HEMETOLOGY METHOD 02/16/2025 6:04 PM [facility] Immature Granulocytes Relative 0.3 % LAB HEMETOLOGY METHOD 02/16/2025 6:04 PM [facility] Neutrophils Absolute 4.66 1.50 - 7.00 K/mcL LAB HEMETOLOGY METHOD 02/16/2025 6:04 PM [facility] Lymphocytes Absolute 2.30 1.00 - 5.00 K/mcL LAB HEMETOLOGY METHOD 02/16/2025 6:04 PM [facility] Monocytes Absolute 0.73 0.20 - 1.00 K/mcL LAB HEMETOLOGY METHOD 02/16/2025 6:04 PM [facility] Eosinophils Absolute 0.12 0.00 - 0.50 K/mcL LAB HEMETOLOGY METHOD 02/16/2025 6:04 PM [facility] Basophils Absolute 0.02 0.00 - 0.20 K/mcL LAB HEMETOLOGY METHOD 02/16/2025 6:04 PM [facility] Immature Granulocytes Absolute 0.02 0.00 - 0.03 K/mcL LAB HEMETOLOGY METHOD 02/16/2025 6:04 PM EDT [facility] Blood Venous blood specimen / Unknown Venipuncture / Unknown 02/16/2025 5:35 PM EDT 02/16/2025 5:59 PM EDT us Fan Quiros MD LAB BLOOD ORDERABLES Final Resul t Performing Organization Address City/[facility]/ZIP Co de Phone Number [facility] [address] [place] [address], [place] [phone] * Magnesium (02/16/2025 5:35 PM EDT) Magnesium 2.2 1.9 - 2.6 mg/dL LAB CHEMISTRY METHOD 02/16/2025 6:24 PM EDT [facility] Blood Venous blood specimen / Unknown Venipuncture / Unknown 02/16/2025 5:35 PM EDT 02/16/2025 5:59 PM EDT us Fan Quiros MD LAB BLOOD ORDERABLES Final Resul t Performing Organization Address [facility]/ZIP Co de Phone Number [facility] [address] [place] [address], [place] [phone] * Lipase (02/16/2025 5:35 PM EDT) Lipase 32 13 - 75 unit/L LAB CHEMISTRY METHOD 02/16/2025 7:51 PM EDT [facility] Blood Venous blood specimen / Unknown Venipuncture / Unknown 02/16/2025 5:35 PM EDT 02/16/2025 5:59 PM EDT us Fan Quiros MD LAB BLOOD ORDERABLES Final Resul t Performing Organization Address City/[facility]/ZIP Co de Phone Number [facility] [address] [place] [address], [place] [phone] * NM CRITICAL CARE 30-74 MINUTES (02/16/2025 4:36 PM EDT) Fan Irvin MD - 02/16/2025 4:36 PM EDT Fan [...] following conditions: Cardiac failure, circulatory failure and TIN CUTTER failure or compromise Critical care was time [...] MD IN CLINIC/BEDSIDE ORDERABLES Fin al Result * (ABNORMAL) Microalbumin creatinine urine ratio (01/26/2025 8:57 AM EDT) Creatinine, Urine 320.0 mg/dL LAB CHEMISTRY METHOD 01/26/2025 10:52 AM EDT [facility] Microalb, Ur 204.0(H) 0.0 - 29.0 mg/L LAB CHEMISTRY METHOD 01/26/2025 10:52 AM EDT [facility] Microalb/Crea t Ratio 64(H) <30 mg/g creat LAB CHEMISTRY METHOD 01/26/2025 10:52 AM EDT [facility] Urine Urine specimen obtained by clean catch procedure / Unknown Non-blood Collection / Unknown 01/26/2025 8:57 AM EDT 01/26/2025 8:57 AM EDT Arkeo PA LAB URINE ORDERABLES Final Resul t Performing Organization Address [facility]/ZIP Co de Phone Number [facility] [address] [place] [address], [place] [phone] * Hepatitis C antibody (01/26/2025 8:54 AM EDT) Hepatitis C Antibody Negative Negative LAB CHEMISTRY METHOD 01/26/2025 3:35 PM EDT [facility] Blood Venous blood specimen / Unknown Venipuncture / Unknown 01/26/2025 8:54 AM EDT 01/26/2025 8:54 AM EDT Arkeo PA LAB BLOOD ORDERABLES Final Resul t Performing Organization Address [facility] de Phone Number [facility] [address] [place] [address], [place] [phone] * HIV 1,2 antibody, p24 antigen with reflex to differentiation (01/26/2025 8:54 AM EDT) HIV Combo AB/AG Negative Negative LAB CHEMISTRY METHOD 01/26/2025 3:36 PM EDT [facility] Blood Venous blood specimen / Unknown Venipuncture / Unknown 01/26/2025 8:54 AM EDT 01/26/2025 8:54 AM EDT Narrative [facility] - 01/26/2025 3:36 PM EDT This assay is a 4th generation assay allowing for earlier detection of HIV infection by detecting the presence of the HIV-1 p24 antigen as well as the traditional antibodies to HIV type 1 (including group O) and type 2. Use of a 4th generation assay is the current CDC recommendation for HIV screening. [employer] [facility] LAB BLOOD ORDERABLES Final Resul t Performing Organization Address City/[facility]/ZIP Co de Phone Number [facility] [address] [place] [address], [place] [phone] * Lipid panel with reflex to direct LDL (01/26/2025 8:54 AM EDT) Cholesterol 153 0 - 200 mg/dL LAB CHEMISTRY METHOD 01/26/2025 1:52 PM EDT [facility] Triglycerides 127 0 - 150 mg/dL LAB CHEMISTRY METHOD 01/26/2025 1:52 PM EDT [facility] HDL 40 >=40 mg/dL LAB CHEMISTRY METHOD 01/26/2025 1:52 PM EDT [facility] LDL Calculated 88 0 - 100 mg/dL LAB CHEMISTRY METHOD 01/26/2025 1:52 PM EDT [facility] Comment:Estimated LDL Calcul ated using equation: Total cholesterol - HDL cholesterol - (Triglycerides/5) VLDL Cholesterol [place] 25.4 mg/dL LAB CHEMISTRY METHOD 01/26/2025 1:52 PM EDT [facility] Non HDL Chol. (LDL+VLDL) 113 <145 mg/dL LAB CHEMISTRY METHOD 01/26/2025 1:52 PM EDT [facility] Chol/HDL Ratio 3.8 0.0 - 4.4 LAB CHEMISTRY METHOD 01/26/2025 1:52 PM EDT [facility] Blood Venous blood specimen / Unknown Venipuncture / Unknown 01/26/2025 8:54 AM EDT 01/26/2025 8:54 AM EDT us Thao MAHMOOD LAB BLOOD ORDERABLES Final Resul t [facility] [address] [place] [address], [place] [phone] * (ABNORMAL) Vitamin D 25 hydroxy (01/26/2025 8:54 AM EDT) Vit D, 25-Hydroxy 29.8(L) 30.0 - 80.0 ng/mL LAB CHEMISTRY METHOD 01/26/2025 2:56 PM EDT [facility] Blood Venous blood specimen / Unknown Venipuncture / Unknown 01/26/2025 8:54 AM EDT 01/26/2025 8:54 AM EDT Thao Nicholson [place] LAB BLOOD ORDERABLES Final Resul t Performing Organization Address [facility] de Phone Number [facility] [address] [place] [address], * (ABNORMAL) Hemoglobin A1c (01/26/2025 8:54 AM EDT) [facility] Hemoglobin A1C 6.6(H) <6.5 % LAB CHEMISTRY METHOD 01/26/2025 1:30 PM EDT [facility] Mean Bld Glu Estim. 143 mg/dL LAB CHEMISTRY METHOD 01/26/2025 1:30 PM EDT [facility] Blood Venous blood specimen / Unknown Venipuncture / Unknown 01/26/2025 8:54 AM EDT 01/26/2025 8:54 AM EDT us Thao MAHOMOD LAB BLOOD ORDERABLES Final Resul t Performing Organization Address [facility]/ZIP Nh de Phone Number [facility] [address] [place] [address], [place] [phone] * (ABNORMAL) Comprehensive metabolic panel (01/26/2025 8:54 AM EDT) Only the most recent of2 resultswithin the time period is included. Pathologist [facility] [place] Sodium 141 133 - 145 mmol/L LAB CHEMISTRY METHOD 01/26/2025 1:53 PM EDT [facility] Potassium 4.5 3.5 - 5.5 mmol/L LAB CHEMISTRY METHOD 01/26/2025 1:53 PM [facility] Chloride 106 96 - 110 mmol/L LAB CHEMISTRY METHOD 01/26/2025 1:53 PM [facility] CO2 29 21 - 32 mmol/L LAB CHEMISTRY METHOD 01/26/2025 1:53 PM [facility] Anion Gap 6 3 - 11 LAB CHEMISTRY METHOD 01/26/2025 1:53 PM [facility] Glucose 139(H) 70 - 100 mg/dL LAB CHEMISTRY METHOD 01/26/2025 1:53 PM [facility] BUN 27(H) 5 - 25 mg/dL LAB CHEMISTRY METHOD 01/26/2025 1:53 PM [facility] Creatinine 0.94 0.70 - 1.30 mg/dL LAB CHEMISTRY METHOD 01/26/2025 1:53 PM [facility] eGFR 109 >=60 mL/min/1. 73m2 LAB CHEMISTRY METHOD 01/26/2025 1:53 PM [facility] Comment:Calculation based on the Chronic Kidney Disease Epidemiology Collaboration (CKD-EPI) equation refit without adjustment for race. BUN/Creatinine Ratio 28.7 LAB CHEMISTRY METHOD 01/26/2025 1:53 PM [facility] Calcium 9.4 8.5 - 10.5 mg/dL LAB CHEMISTRY METHOD 01/26/2025 1:53 PM [facility] AST (SGOT) 10 10 - 42 unit/L LAB CHEMISTRY METHOD 01/26/2025 1:53 PM [facility] ALT (SGPT) 21 10 - 60 unit/L LAB CHEMISTRY METHOD 01/26/2025 1:53 PM [facility] Alkaline Phosphatase 75 42 - 121 unit/L LAB CHEMISTRY METHOD 01/26/2025 1:53 PM [facility] Total Protein 7.3 6.0 - 8.0 g/dL LAB CHEMISTRY METHOD 01/26/2025 1:53 PM EDT [facility] Albumin 3.6 3.2 - 5.0 g/dL LAB CHEMISTRY METHOD 01/26/2025 1:53 PM EDT [facility] Total Bilirubin 0.4 0.0 - 1.4 mg/dL LAB CHEMISTRY METHOD 01/26/2025 1:53 PM EDT [facility] Blood Venous blood specimen / Unknown Venipuncture / Unknown 01/26/2025 8:54 AM EDT 01/26/2025 8:54 AM EDT us Thao MAHMOOD LAB BLOOD ORDERABLES Final Resul t [facility] [address] [place] [address], [place] [phone] * External Xray Report (01/23/2025) Only the most recent of2 resultswithin the time period is included. Anatomical Region Laterality Modality Radiographic Guadalupe ging us Provider [facility] IMG XR PROCEDURES Final Result * CT Abdomen Pelvis w Contrast (01/16/2025 [...] MD on 01/16/2025 02:18:48 Odin Dockery MD [facility] CT PROCEDURES Final Result * External CT Report (01/16/2025) Anatomical Region Laterality Modality Computed Tomogra phy Provider [facility] CT PROCEDURES Final Result * (ABNORMAL) Urinalysis with reflex microscopic and culture (01/15/2025 10:15 PM EDT) Specific [place] Urine 1.024 1.003 - 1.030 LAB URINALYSIS - AUTOMATED METHOD 01/15/2025 11:15 PM [facility] pH, Urine 5.5 5.0 - 8.0 pH LAB URINALYSIS - AUTOMATED METHOD 01/15/2025 11:15 PM [facility] Leukocytes, Urine Negative Negative LAB URINALYSIS - AUTOMATED METHOD 01/15/2025 11:15 PM [facility] Nitrite, Urine Negative Negative LAB URINALYSIS - AUTOMATED METHOD 01/15/2025 11:15 PM [facility] Protein, Urine 30(A) <=Trace mg/dL LAB URINALYSIS - AUTOMATED METHOD 01/15/2025 11:15 PM [facility] Glucose, Urine Negative Negative mg/dL LAB URINALYSIS - AUTOMATED METHOD 01/15/2025 11:15 PM [facility] Ketones, Urine Trace(A) Negative mg/dL LAB URINALYSIS - AUTOMATED METHOD 01/15/2025 11:15 PM [facility] Urobilinogen, Urine 1.0 0.2 - 1.0 mg/dL LAB URINALYSIS - AUTOMATED METHOD 01/15/2025 11:15 PM EDT [facility] Bilirubin, Urine Negative Negative LAB URINALYSIS - AUTOMATED METHOD 01/15/2025 11:15 PM EDT [facility] Blood, Urine Negative Negative LAB URINALYSIS - AUTOMATED METHOD 01/15/2025 11:15 PM EDT [facility] RBC, Urine 1 0 - 4 /HPF 01/15/2025 11:15 PM EDT [facility] WBC, Urine 1 0 - 4 /HPF 01/15/2025 11:15 PM EDT [facility] Squamous Epithelial, Urine 6 0 - 60 /LPF 01/15/2025 11:15 PM [facility] Bacteria, Urine Negative Negative /HPF 01/15/2025 11:15 PM T [facility] Hyaline Casts, Urine 1 0 - 3 /LPF 01/15/2025 11:15 PM [facility] Mucus, Urine Trace(A) None /HPF 01/15/2025 11:15 PM T [facility] Urine Urine specimen obtained by clean catch procedure / Unknown Non-blood Collection / Unknown 01/15/2025 10:15 PM EDT 01/15/2025 10:33 PM EDT us Tete Pérez [employer] LAB URINE ORDERABLES Pat l Result [facility] [address] [place] [address], * [place] urine culture tube (01/15/2025 10:15 PM EDT) Extra Tube Hold for add-ons. 01/16/2025 12:01 AM EDT [facility] Comment:Auto resulted. Urine Urine specimen obtained by clean catch procedure / Unknown Non-blood Collection / Unknown 01/15/2025 10:15 PM EDT 01/15/2025 10:33 PM EDT us Tete Pérez [employer] LAB URINE ORDERABLES Pat harrison Result [facility] [address] [place] [address], from Last 3 Months Insurance [facility] [employer] Care Teams Acidizer Relationship Specialty Start Date End Date Dago Franklin MD [address] [place] [address] PCP - General Internal Medicine 12/26/24
--- OUTSIDE RECORDS SUMMARY | 2025-02-21 20:55 | XMS_ITS | Encounter Summary ---
Author Organization [facility] Address [address] [place] [address] Care Team Providers Care Farmworker Fruit Name Role Phone Dago Franklin MD Primary Care Provider Reason for Visit * Reason Onset Date Comments Prior Authorization 01/29/2025 Encounter Details Date Type Department Care Team (Late st Contact Info) Description 01/29/2025 Telephone Adult Medicine [facility] [address] [place], [place] [phone] Dago Franklin MD [address] [place], [place] Social History Tobacco Use Types Packs/Day [...] for your loved ones. For example, children's attendant or elderly care for an older adult? [...] on file documented as of this encounter Ordered Prescriptions Prescription Sig Dispense Quantity Refills Last Filled Start Date End Date tiZANidine (ZANAFLEX) 4 mg tablet Take 1 tablet (4 mg total) by mouth 3 (three) times a day if needed for muscle spasms. 90 tablet 02/03/2025 02/10/2025 documented in this encounter Progress Notes * ELA Leo - 02/03/2025 1:37 PM EDT It looks like tizanidine capsules are not covered but the tablets are. He's all set. * Danielle Keenan - 01/29/2025 10:38 AM EDT I'm not sure why I cannot send this directly to Thao. 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; IF the request is for generic tizanidine capsules: (1) you have had a poor response, negative reaction, or contraindication to (medical reason you cannot take)the medication baclofen AND the medication tizanidine tablets; (2) you have a medical necessity forthe capsule formulation (2 mg and 4 mg) or for dose (6 mg) OR; IF the request is for brand Zanafelxcapsules: (1) you have had a poor response, negative reaction, or contraindication to (medical reason you cannot take) ALL of the following medications: baclofen, dantrolene, tizanidine tablets; (2) you have a medical necessity for the capsule formulation (2 mg and 4 mg) or for dose (6 mg); (3) your doctor attached medical records showing you have had a poor response or negative reaction to generic tizanidine capsules. * Katy Knox - 01/29/2025 10:28 AM EDT Prior Authorization for Medication-do not complete and send this encounter unless you have the fax from the pharmacy. Is this a Cover My Meds request: Yes -- [place] Code [id number] Name of Medication tiZANidine (Zanaflex) 4 mg capsule Dose of Medication What is the RX # from the faxed refill? How does patient take this med? Sig: Take 1 capsule (4 mg total) by mouth 3 (three) times a day. What Pharmacy did the fax come from[facility] #: [phone] [employer] Information from fax: What Prescription Plan does the patient have? BIN/PCN if applicable: Cardholder ID: Person Code: Relationship Code: Help desk phone: documented in this encounter Plan of Treatment Upcoming Encounters Date Type Department Care Team (Late st Contact Info) Description 02/24/2025 10:00 AM EST Office Visit Endocrinology [address] [phone] Ana Luisa West MD [address] [place] [address] 08/18/2025 11:30 AM EDT Office Visit Adult Medicine [place] - [address] [phone] Dago Franklin MD [address] [place] [address] documented as of this encounter Visit Diagnoses Not on filedocumented in this encounter Discontinued Medications Medication Sig Discontinue Reason Start Date End Da te tiZANidine (Zanaflex) 4 mg capsuleIndications:Acute right-sided low back pain with right-sided sciatica,Lumbar radiculopathy Take 1 capsule (4 mg total) by mouth 3 (three) times a day. Entered in Error 01/27/2025 02/03/2025 documented as of this encounter Additional Health Concerns Assessment Noted Time PHQ-9 Depression Total Score: 27 025 1:27 PM EDT documented as of this encounter Care Teams Farmworker Fruit Relationship Specialty Start Date End Date Dago Franklin MD [address] [place] [address] PCP - General Internal Medicine 12/26/24 documented as of this encounter
--- OUTSIDE RECORDS SUMMARY | 2025-02-21 20:55 | XMS_ITS | Encounter Summary ---
Author Organization [facility] Address [address] [place] [address] Care Team Providers Care Attendant [facility] Name Role Phone Dago Franklin MD Primary Care Provider Encounter Details Date Type Department Care Team ([facility] st Contact Info) Description 01/26/2025 Results Follow-Up Adult Medicine [facility] [address] [place], [place] [phone] Thao Nicholson PA [address] [place], [place] Social History Tobacco Use Types Packs/Day [...] your loved ones. For example, child care center assistant director or elderly care for an older adult? [...] on file documented as of this encounter Plan of Treatment Upcoming Encounters Date Type Department Care Team (Late st Contact Info) Description 02/24/2025 10:00 AM EST Office Visit Endocrinology [address] [phone] Ana Luisa West MD [address] [place], [place] 08/18/2025 11:30 AM EDT Office Visit Adult Medicine [address] [phone] Dago Franklin MD [address] [place], [place] documented as of this encounter Visit Diagnoses Not on filedocumented in this encounter Additional Health Concerns Assessment Noted Time PHQ-9 Depression Total Score: 27 025 1:27 PM EDT documented as of this encounter Care Teams Attendant [facility] Relationship Specialty Start Date End Date Dago Franklin MD [address] [place], [place] PCP - General Internal Medicine 12/26/24 documented as of this encounter
--- OUTSIDE RECORDS SUMMARY | 2025-02-21 20:55 | XMS_ITS | Clinical Summary ---
Author Organization [facility] Address [address] [facility] [address] [place] [address] Care Team Providers Care Physical Medicine Specialist Name Role Phone Unavailable Primary Care Provider [...] patient's age to complete this topic [place] [address] [place] [address]
[2025-02-21] MEDS: oxyCODONE HCl Immed Release 5 MG TABLET PO (21:56)
[2025-02-22 00:19] VITALS: BP 144/79; PULSE 98; RESP 22; TEMP 36.7
[2025-02-22 00:20] VITALS: BP 144/79; PULSE 98; RESP 22; TEMP 36.7
== END 2025-02-22 00:20 | disposition home or self-care (01) ==
PROVIDERS: Emergency Provider Student in an Organized Health Care Education/Training Program; PCP Internal Medicine
DX: M54.6 Pain in thoracic spine (principal); S39.012S Strain of muscle, fascia and tendon of lower back, sequela; R10.A3 Flank pain, bilateral
CPT/HCPCS: 71250; 74176; 99284

== ENCOUNTER → 2025-02-21 21:31 | Outpatient (BNV) | payer OTHER, SELFPAY | PROVIDERS: Emergency Provider Student in an Organized Health Care Education/Training Program; PCP Internal Medicine; Visit Provider Radiology Diagnostic Radiology | DX: R10.9 Unspecified abdominal pain (principal); M54.50 Low back pain, unspecified; M54.6 Pain in thoracic spine | CPT/HCPCS: 71250; 74176 ==